=== PATIENT | female | born 1935 | race Caucasian/White ===

== ENCOUNTER 2017-08-19 15:02 | Inpatient (IN) | payer OTHER ==
[2017-08-19] MEDS ORDERED: PIPERACILLIN/TAZOB 3.375 GM 3.375 GM in DEXTROSE 5%-WATER - 50 ML IVPB ONE (15:23)
[2017-08-19] MEDS ORDERED: VANCOMYCIN 1,000 MG in DEXTROSE 5%-WATER - 250 ML IVPB ONE (15:24)
--- NOTE | 2017-08-19 15:32 | PDOC ---
Attending Attestation - Resident Resident Name: Drew Farias - ED Attending Attestation I have performed the following: I have examined & evaluated the patient, The case was reviewed & discussed with the resident, I agree w/resident's findings & plan - HPI HPI: 08/19/17 15:27 81-year-old female with history of atrial fibrillation on aspirin, chronic left lower extremity wound managed by Dr. Dueñas of plastic surgery now with increased swelling and pain and purulence despite outpatient antibiotics, sent from Dr. Juárez's office for admission for IV abx and r/o DVT. 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 no f/c. - Physicial Exam PE: 08/19/17 15:30 afebrile LLE larger than Right. 3cm eschar wound to plummer without surrounding erythema, + tender. no crepitus. NVI distally - Medical Decision Making 08/19/17 15:30 Patient seen and evaluated with the resident. I agree with the overall evaluation, assessment, and management with the following summary of visit: 81-year-old female sent for further evaluation of nonhealing left plummer wound with increased swelling and purulence, rule out superimposed DVT versus deep tissue infection/osteomyelitis. Labs including ESR and CRP, cultures Left lower leg x-ray, left leg Doppler IV antibiotics Admission to Dr. Moore, maegan Juárez Heart Score/ECG Review #1 ECG reviewed & interpreted by me at: 15:27 08/19/17 15:31 afib at 66, poor baseline but no acute ischemic changes
--- NOTE | 2017-08-19 17:10 | PDOC ---
History of Present Illness - General Stated Complaint: LEG PAIN Time Seen by Provider: 08/19/17 15:08 History Source: Patient - History of Present Illness Initial Comments: 08/19/17 17:03 Patient is an 81F with history of dementia, CHF, hypothyroidism, asthma and an unknown psych diagnosis here today complaining of a wound to her left leg. Her aide reports the wound worsening and smelling foul despite taking PO cefdinir. Patient was referred for admission by Dr Moore. Patient denies fevers, chills, nausea, vomiting. On review of symptoms she complains of abdominal pain. Her aide reports that she has had chronic abdominal pain. Patient denies chest pain and shortness of breath. Past History - Past Medical History Allergies/Adverse Reactions: Allergies Allergy/AdvReac Type Severity Reaction Status Date / Time No Known Drug Allergies Allergy Verified 12/08/14 12:46 Home Medications: Ambulatory Orders Acetaminophen [Tylenol Extra Strength] 500 mg PO Q4HWA PRN 03/08/16 Aspirin [Aspirin EC] 81 mg PO DAILY 03/08/16 Dexlansoprazole [Dexilant] 60 mg PO DAILY 03/08/16 Febuxostat [Uloric -] 40 mg PO DAILY 03/08/16 Ferrous Sulfate [Feosol] 325 mg PO DAILY 03/08/16 Levofloxacin [Levaquin] 500 mg PO DAILY #6 tablet 03/08/16 Levothyroxine [Synthroid -] 25 mcg PO DAILY 03/08/16 Lisinopril [Prinivil] 20 mg PO DAILY 03/08/16 Metoclopramide HCl 5 mg PO ASDIR 03/08/16 Metoprolol Tartrate [Lopressor] 100 mg PO BID 03/08/16 Multivitamins [Tab-A-Vit -] 1 tab PO DAILY 03/08/16 Rifaximin [Xifaxan] 550 mg PO BID 03/08/16 Sertraline HCl [Zoloft -] 50 mg PO DAILY 03/08/16 Cephalexin [Keflex] 500 mg PO Q6H #20 capsule 03/12/16 Anemia: Yes (mild iron def) Asthma: No Cardiac Disorders: Yes (AFIB) CVA: No COPD: Yes CHF: Yes DVT: (sent today 06/23/14 to r/o lle dvt) Dementia: Yes Diabetes: No GI Disorders: No Disorders: Yes (FREQUENT UTI'S) HTN: Yes Hypercholesterolemia: No Liver Disease: No Psychiatric Problems: Yes (ANXIETY.) Seizures: No Thyroid Disease: Yes (HYPOTHYROIDISM) - Surgical History Abdominal Surgery: Yes Appendectomy: Yes Orthopedic Surgery: Yes (HIP REPLACEMENT, Left) - Immunization History Immunization Up to Date: Yes (allergic to flu shot) - Suicide/Smoking/Psychosocial Hx Smoking Status: No Smoking History: Never smoked Have you smoked in the past 12 months: No Number of Cigarettes Smoked Daily: 0 Hx Alcohol Use: No Drug/Substance Use Hx: No Substance Use Type: None Hx Substance Use Treatment: No Review of Systems - Review of Systems Comments:: 08/19/17 17:10 GENERAL/CONSTITUTIONAL: No fever or chills. No weakness. HEAD, EYES, EARS, NOSE AND THROAT: No change in vision. No sore throat. CARDIOVASCULAR: No chest pain or shortness of breath RESPIRATORY: No cough, wheezing, or hemoptysis. GASTROINTESTINAL: No nausea, vomiting, diarrhea or constipation. GENITOURINARY: Positive for dysuria and frequency. MUSCULOSKELETAL: Positive for pain in left leg. No neck or back pain. SKIN: No rash NEUROLOGIC: No headache, vertigo, loss of consciousness, or change in strength/ sensation. ENDOCRINE: No increased thirst. No abnormal weight change HEMATOLOGIC/LYMPHATIC: No anemia, easy bleeding, or history of blood clots. ALLERGIC/IMMUNOLOGIC: No hives or skin allergy. *Physical Exam - Vital Signs Last Vital Signs Temp Pulse Resp BP Pulse Ox 98.6 F 64 18 122/82 98 08/19/17 15:30 08/19/17 15:30 08/19/17 15:30 08/19/17 15:30 08/19/17 15:30 - Physical Exam Comments: 08/19/17 17:12 GENERAL: Awake, alert, in no acute distress L LEG: Larger than right, swollen, 3x1cm area of inflammation with pus drainage , tender. 1+ dp pulse HEAD: No signs of trauma, normocephalic, atraumatic EYES: PERRLA, EOMI, sclera anicteric, conjunctiva clear ENT: Auricles normal inspection, hearing grossly normal, nares patent, oropharynx clear without exudates. Moist mucosa NECK: Normal ROM, supple, no lymphadenopathy, JVD, or masses LUNGS: No distress, speaks full sentences, clear to auscultation bilaterally HEART: Regular rate and rhythm, normal S1 and S2, no murmurs, rubs or gallops, peripheral pulses normal and equal bilaterally. ABDOMEN: Tender, voluntary guarding. No masses NEUROLOGICAL: Cranial nerves II through XII grossly intact. Normal speech, no focal sensorimotor deficits SKIN: Warm, Dry, normal turgor, no rashes or lesions noted. ED Treatment Course - LABORATORY CBC & Chemistry Diagram: 08/19/17 17:35 08/19/17 17:35 - RADIOLOGY Radiology Studies Ordered: Category Date Time Status ABDOMEN & PELVIS CT WITH CONTR [CT] Stat CT Scan 08/19/17 15:21 Ordered Medical Decision Making - Medical Decision Making 08/19/17 17:13 Patient is an 81F with history of IDDM, HTN, CAD s/p CABG here today with wound to leg. DDx includes, but is not limited to: cellulitis, osteo. Abdominal exam shows tenderness, will evaluate with CT abd pelvis, cbc, cmp, ua, dvt us, x-rays , ekg. 08/19/17 18:37 Laboratory Tests 08/19/17 08/19/17 08/19/17 17:35 17:35 18:10 WBC 6.1 D Hgb 12.3 Hct 35.9 Plt Count 185 INR 1.10 Urine Nitrite Negative Ur Leukocyte Esterase Negative CBC normal. INR normal. UA negative. DVT US normal. CXR shows cardiomegaly, no obvious infiltrate. CRP/CMP hemolyzed, re-drawn. 08/19/17 19:[address] Ortega. Pending CT abd/pelvis and x-rays, and admission. *DC/Admit/Observation/Transfer Diagnosis at time of Disposition: Cellulitis - Discharge Dispostion Condition at time of disposition: Stable - Referrals Referrals: Hector Juárez MD [Primary Care Provider] - - Patient Instructions - Post Discharge Activity
[2017-08-19] MEDS ORDERED: VANCOMYCIN 1 GRAM (PRE-DOCKED) 1,000 MG/250 ML BAG IVPB ONE (17:43)
[2017-08-19] MEDS ORDERED: PIPERACILLIN/TAZOB 3.375 GM 3.375 GM/50 ML BAG IVPB ONE (17:44)
[2017-08-19 17:53] LABS: BASO % 1.2 % (0-2.0); EOS % 4.6 % (0-4.5); HEMATOCRIT 35.9 % (32.4-45.2); HEMOGLOBIN 12.3 GM/dL (10.7-15.3); LYMPH % 21.2 % (8-40); MCH 33.7 pg (25.7-33.7); MCHC 34.4 g/dl (32.0-36.0); MONO % 13.3 % (3.8-10.2); NEUT % 59.7 % (42.8-82.8); PLATELET COUNT 185 K/MM3 (134-434); RBC 3.67 M/mm3 (3.60-5.2); RDW 13.8 % (11.6-15.6); WHITE BLOOD COUNT 6.1 K/mm3 (4.0-10.0)
[2017-08-19 18:06] LABS: INR 1.1 (0.82-1.09); PROTHROMBIN TIME (PATIENT) 12.4 SEC (9.7-13.0)
[2017-08-19 18:10] LABS: ACTIVATED PTT 37.4 SECONDS (26.9-34.4)
[2017-08-19 18:21] LABS: URINE APPEARANCE CLEAR; URINE BILIRUBIN NEGATIVE (<2.0 mg/dL); URINE COLOR LTYELLOW; URINE GLUCOSE (UA) NEGATIVE (NEGATIVE); URINE KETONE NEGATIVE (NEGATIVE); URINE LEUK ESTERASE NEGATIVE (NEGATIVE); URINE NITRITE NEGATIVE (NEGATIVE); URINE PROTEIN NEGATIVE (NEGATIVE); URINE UROBILINOGEN NEGATIVE mg/dL (0.2-1.0)
--- NOTE | 2017-08-19 18:42 | PDOC ---
*Physical Exam - Vital Signs Last Vital Signs Temp Pulse Resp BP Pulse Ox 98.6 F 64 18 122/82 98 08/19/17 15:30 08/19/17 15:30 08/19/17 15:30 08/19/17 15:30 08/19/17 15:30 08/19/17 18:40 81 YOF with h/o CHF, asthma, decubitus ulcers, and hypothyroidism who was sent here by Dr. Moore for a leg wound with concern for osteomyelitis and/or deep space infection. Duplex negative, pending XR leg, CT A/P, labs. ED Treatment Course - LABORATORY CBC & Chemistry Diagram: 08/19/17 17:35 08/19/17 18:28 - ADDITIONAL ORDERS Additional order review: Laboratory Results 08/19/17 08/19/17 08/19/17 18:10 17:35 17:35 PT with INR INR PTT (Actin FS) Sodium Cancelled Potassium Cancelled Chloride Cancelled Carbon Dioxide Cancelled Anion Gap Cancelled BUN Cancelled Creatinine Cancelled Creat Clearance w eGFR Cancelled Random Glucose Cancelled Calcium Cancelled Total Bilirubin Cancelled AST Cancelled ALT Cancelled Alkaline Phosphatase Cancelled C-Reactive Protein Cancelled Total Protein Cancelled Albumin Cancelled Urine Color Ltyellow Urine Appearance Clear Urine pH 5.0 Ur Specific [place] 1.009 Urine Protein Negative Urine Glucose (UA) Negative Urine Ketones Negative Urine Blood Negative Urine Nitrite Negative Urine Bilirubin Negative Urine Urobilinogen Negative Ur Leukocyte Esterase Negative 08/19/17 17:35 PT with INR 12.40 INR 1.10 PTT (Actin FS) 37.4 H Sodium Potassium Chloride Carbon Dioxide Anion Gap BUN Creatinine Creat Clearance w eGFR Random Glucose Calcium Total Bilirubin AST ALT Alkaline Phosphatase C-Reactive Protein Total Protein Albumin Urine Color Urine Appearance Urine pH Ur Specific [place] Urine Protein Urine Glucose (UA) Urine Ketones Urine Blood Urine Nitrite Urine Bilirubin Urine Urobilinogen Ur Leukocyte Esterase 08/19/17 17:35 RBC 3.67 MCV 98.0 H MCHC 34.4 RDW 13.8 MPV 10.0 Neutrophils % 59.7 Lymphocytes % 21.2 D Monocytes % 13.3 H Eosinophils % 4.6 H Basophils % 1.2 Medical Decision Making - Medical Decision Making 08/19/17 20:41 Reviewed EKG: A-rib, rate of 67, normal axis, QTc 481 ms, t-wave inversions in anterior leads. Spoke with CT - they will not be able to do IV contrast CT as patient has CARIN. Order changed to dry CT. 08/19/17 22:08 CT shows bilateral pleural effusions, bibasilar atelectatic changes r/o infiltrates. Laboratory Tests 08/19/17 08/19/17 08/19/17 17:35 17:35 17:35 WBC 6.1 D RBC 3.67 Hgb 12.3 Hct 35.9 MCV 98.0 H MCH 33.7 MCHC 34.4 RDW 13.8 Plt Count 185 MPV 10.0 Neutrophils % 59.7 Lymphocytes % 21.2 D Monocytes % 13.3 H Eosinophils % 4.6 H Basophils % 1.2 ESR PT with INR 12.40 INR 1.10 PTT (Actin FS) 37.4 H Sodium Cancelled Potassium Cancelled Chloride Cancelled Carbon Dioxide Cancelled Anion Gap Cancelled BUN Cancelled Creatinine Cancelled Creat Clearance w eGFR Cancelled Random Glucose Cancelled Calcium Cancelled Total Bilirubin Cancelled AST Cancelled ALT Cancelled Alkaline Phosphatase Cancelled C-Reactive Protein Total Protein Cancelled Albumin Cancelled Urine Color Urine Appearance Urine pH Ur Specific [place] Urine Protein Urine Glucose (UA) Urine Ketones Urine Blood Urine Nitrite Urine Bilirubin Urine Urobilinogen Ur Leukocyte Esterase 08/19/17 08/19/17 08/19/17 17:35 17:35 18:10 WBC RBC Hgb Hct MCV MCH MCHC RDW Plt Count MPV Neutrophils % Lymphocytes % Monocytes % Eosinophils % Basophils % ESR 39 H PT with INR INR PTT (Actin FS) Sodium Potassium Chloride Carbon Dioxide Anion Gap BUN Creatinine Creat Clearance w eGFR Random Glucose Calcium Total Bilirubin AST ALT Alkaline Phosphatase C-Reactive Protein Cancelled Total Protein Albumin Urine Color Ltyellow Urine Appearance Clear Urine pH 5.0 Ur Specific [place] 1.009 Urine Protein Negative Urine Glucose (UA) Negative Urine Ketones Negative Urine Blood Negative Urine Nitrite Negative Urine Bilirubin Negative Urine Urobilinogen Negative Ur Leukocyte Esterase Negative 08/19/17 18:28 WBC RBC Hgb Hct MCV MCH MCHC RDW Plt Count MPV Neutrophils % Lymphocytes % Monocytes % Eosinophils % Basophils % ESR PT with INR INR PTT (Actin FS) Sodium 138 Potassium 4.6 Chloride 105 Carbon Dioxide 23 Anion Gap 10 BUN 45 H Creatinine 1.5 H Creat Clearance w eGFR 33.25 Random Glucose 129 H Calcium 8.5 Total Bilirubin 0.5 AST 26 ALT 19 Alkaline Phosphatase 303 H C-Reactive Protein 1.7 H Total Protein 7.2 Albumin 3.5 Urine Color Urine Appearance Urine pH Ur Specific [place] Urine Protein Urine Glucose (UA) Urine Ketones Urine Blood Urine Nitrite Urine Bilirubin Urine Urobilinogen Ur Leukocyte Esterase 08/19/17 23:10 Microblogged [facility] for admission (Dr. Moore's group patient admitted to [facility] after 5 pm). Spoke with Dr. Nguyen; patient to be admitted to Dr. Phillips to Med/Surg Inpatient. Decision to Admit order placed. 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 08/19/17 23:22 *DC/Admit/Observation/Transfer Diagnosis at time of Disposition: CARIN (acute kidney injury) Cellulitis Qualifiers: Site of cellulitis: extremity Site of cellulitis of extremity: lower extremity Laterality: left Qualified Code(s): L03.116 - Cellulitis of left lower limb Decubitus ulcer Qualifiers: Pressure ulcer location: unspecified location Pressure ulcer stage: unspecified pressure ulcer stage Qualified Code(s): L89.90 - Pressure ulcer of unspecified site, unspecified stage Leg ulcer, left Qualifiers: Non-pressure ulcer stage: unspecified non-pressure ulcer stage Qualified Code(s ): L97.929 - Non-pressure chronic ulcer of unspecified part of left lower leg with unspecified severity Abdominal pain Qualifiers: Abdominal location: generalized Qualified Code(s): R10.84 - Generalized abdominal pain - Discharge Dispostion Condition at time of disposition: Guarded Admit: Yes - Referrals Referrals: Hector Juárez MD [Primary Care Provider] - - Patient Instructions - Post Discharge Activity
[2017-08-19 20:20] LABS: ANION GAP 10 (8-16); BLOOD UREA NITROGEN 45 mg/dL (7-18); CALCIUM 8.5 mg/dL (8.5-10.1); CHLORIDE 105 mmol/L (98-107); CO2 23 mmol/L (21-32); CREATININE 1.5 mg/dL (0.55-1.02); GLUCOSE,RANDOM 129 mg/dL (74-106); POTASSIUM 4.6 mmol/L (3.5-5.1); SODIUM 138 mmol/L (136-145)
[2017-08-19 20:21] LABS: ALBUMIN 3.5 g/dl (3.4-5.0); ALK PHOS 303 U/L (45-117); BILIRUBIN,TOTAL 0.5 mg/dL (0.2-1.0); SGOT/AST 26 U/L (15-37); SGPT/ALT 19 U/L (12-78); TOT PROT 7.2 g/dl (6.4-8.2)
[2017-08-19] MEDS ORDERED: ACETAMINOPHEN 325 MG TABLET (FP) PO PRN (23:19)
[2017-08-19] MEDS ORDERED: DOCUSATE SODIUM 100 MG CAPSULE (FP) PO PRN ×2 (23:19→23:38)
[2017-08-19] MEDS ORDERED: ALBUTEROL SO4 0.083% IH SOL 2.5 MG/3 ML VIAL.NEB. NEB PRN (23:19)
--- NOTE | 2017-08-19 23:22 | PN ---
Teaching Attending Note Name of Resident: Lico Parham ATTENDING PHYSICIAN STATEMENT I saw and evaluated the patient. I reviewed the resident's note and discussed the case with the resident. I agree with the resident's findings and plan as documented. SUBJECTIVE: 81 Fwith hx. of CHF, A-Fib, CHF, Hypothyriod, chronic hyponatremiam Dementia, who presents with increased edema of LLE and purulance, who failed outpt. abx ( possibly on Keflex). She was sent in from Dr. Juárez's office for abx. Pt. is poor historian and unable to give further history. OBJECTIVE: Physical: VS: Vital Signs Period Temp Pulse Resp BP Sys/Castro Pulse Ox Last 24 Hr 98.6 F 64 18 122/82 98 GEN: NAD, Resting in bed, AA0X3 HEENT: NCAT, PERRL, Throat without erythema or exudates CARD: IRR S1, S2 RESP: CTAB ABD: BSx4, NTD to palpation EXT: LLE 2 cm wounds on plummer, with purulant malorderous drainage, Pulses intact, CBCD WBC 6.1 K/mm3 (4.0-10.0) D 08/19/17 17:35 RBC 3.67 M/mm3 (3.60-5.2) 08/19/17 17:35 Hgb 12.3 GM/dL (10.7-15.3) 08/19/17 17:35 Hct 35.9 % (32.4-45.2) 08/19/17 17:35 MCV 98.0 fl (80-96) H 08/19/17 17:35 MCHC 34.4 g/dl (32.0-36.0) 08/19/17 17:35 RDW 13.8 % (11.6-15.6) 08/19/17 17:35 Plt Count 185 K/MM3 (134-434) 08/19/17 17:35 MPV 10.0 fl (7.5-11.1) 08/19/17 17:35 CMP Sodium 138 mmol/L (136-145) 08/19/17 18:28 Potassium 4.6 mmol/L (3.5-5.1) 08/19/17 18:28 Chloride 105 mmol/L (98-107) 08/19/17 18:28 Carbon Dioxide 23 mmol/L (21-32) 08/19/17 18:28 Anion Gap 10 (8-16) 08/19/17 18:28 BUN 45 mg/dL (7-18) H 08/19/17 18:28 Creatinine 1.5 mg/dL (0.55-1.02) H 08/19/17 18:28 Creat Clearance w eGFR 33.25 (>60) 08/19/17 18:28 Random Glucose 129 mg/dL (74-106) H 08/19/17 18:28 Calcium 8.5 mg/dL (8.5-10.1) 08/19/17 18:28 Total Bilirubin 0.5 mg/dL (0.2-1.0) 08/19/17 18:28 AST 26 U/L (15-37) 08/19/17 18:28 ALT 19 U/L (12-78) 08/19/17 18:28 Alkaline Phosphatase 303 U/L (45-117) H 08/19/17 18:28 Total Protein 7.2 g/dl (6.4-8.2) 08/19/17 18:28 Albumin 3.5 g/dl (3.4-5.0) 08/19/17 18:28 CT ABD/PELVIS: Small bilateral plueral effusion?Atelectesis, mild-mod cardiomegaly Home Medications Medication Instructions Recorded Acetaminophen [Tylenol Extra 500 mg PO Q4HWA PRN 03/08/16 Strength] Aspirin [Aspirin EC] 81 mg PO DAILY 03/08/16 Dexlansoprazole [Dexilant] 60 mg PO DAILY 03/08/16 Febuxostat [Uloric -] 40 mg PO DAILY 03/08/16 Ferrous Sulfate [Feosol] 325 mg PO DAILY 03/08/16 Levofloxacin [Levaquin] 500 mg PO DAILY #6 tablet 03/08/16 Levothyroxine [Synthroid -] 25 mcg PO DAILY 03/08/16 Lisinopril [Prinivil] 20 mg PO DAILY 03/08/16 Metoclopramide HCl 5 mg PO ASDIR 03/08/16 Metoprolol Tartrate [Lopressor] 100 mg PO BID 03/08/16 Multivitamins [Tab-A-Vit -] 1 tab PO DAILY 03/08/16 Rifaximin [Xifaxan] 550 mg PO BID 03/08/16 Sertraline HCl [Zoloft -] 50 mg PO DAILY 03/08/16 Cephalexin [Keflex] 500 mg PO Q6H #20 capsule 03/12/16 ASSESSMENT AND PLAN: 81 Fwith hx. of CHF, A-Fib, CHF, Hypothyriod, chronic hyponatremia Dementia, who presents with increased edema of LLE and purulance, being admitted for cellulitis 1.) Cellulitis LLE - XRAY, noted -Vanco/Zosyn - ID Consult - CX - Check ESR 2.) Hypothyriod - C/W Synthriod 3.) CARIN - U lytes - Gentle IVF - Avoid Nephrotoxin - Renally dose 4.) A-Fib - Rate controlled - C/W ASA ( Unknown why pt. is not on A/C) 5.) DVT Ppx - Heparin [address] in Med-Sx
[2017-08-19] MEDS ORDERED: SODIUM CHLORIDE 1,000 ML IV SCH (23:30)
--- NOTE | 2017-08-19 23:42 | HP ---
CHIEF COMPLAINT: L leg pain HISTORY OF PRESENT ILLNESS: 81 year old female with a history of dementia, CHF, hypothyroidism, afib, asthma presents to the hospital complaining of pain in her left leg and the inability to walk for 3 days. Patient is a very poor historian and a reliable history is unable to be taken without anyone present at bedside. As per ED note , patient was brought to ED by Dr. Moore's request for wound on her left leg that was worsening and failed outpatient treatment with cefdinir. Patient complains of vague, mild abdominal pain in the left lower and right lower quadrants. Denies fevers, chills, chest pain, SOB, nausea, vomiting, diarrhea. ER course was notable for: (1) WBC 6.1 (2) afebrile (3) No DVT PAST MEDICAL HISTORY: dementia, CHF, hypothyroidism, afib, asthma PAST SURGICAL HISTORY: unknown Social History: Smoking: none Alcohol: none Drugs: none Family History: unknown Allergies No Known Drug Allergies Allergy (Verified 12/08/14 12:46) HOME MEDICATIONS: Home Medications Medication Instructions Recorded Acetaminophen [Tylenol Extra 500 mg PO Q4HWA PRN 03/08/16 Strength] Aspirin [Aspirin EC] 81 mg PO DAILY 03/08/16 Dexlansoprazole [Dexilant] 60 mg PO DAILY 03/08/16 Febuxostat [Uloric -] 40 mg PO DAILY 03/08/16 Ferrous Sulfate [Feosol] 325 mg PO DAILY 03/08/16 Levofloxacin [Levaquin] 500 mg PO DAILY #6 tablet 03/08/16 Levothyroxine [Synthroid -] 25 mcg PO DAILY 03/08/16 Lisinopril [Prinivil] 20 mg PO DAILY 03/08/16 Metoclopramide HCl 5 mg PO ASDIR 03/08/16 Metoprolol Tartrate [Lopressor] 100 mg PO BID 03/08/16 Multivitamins [Tab-A-Vit -] 1 tab PO DAILY 03/08/16 Rifaximin [Xifaxan] 550 mg PO BID 03/08/16 Sertraline HCl [Zoloft -] 50 mg PO DAILY 03/08/16 Cephalexin [Keflex] 500 mg PO Q6H #20 capsule 03/12/16 REVIEW OF SYSTEMS CONSTITUTIONAL: Absent: fever, chills, diaphoresis, generalized weakness, malaise, loss of appetite, weight change HEENT: Absent: rhinorrhea, nasal congestion, throat pain, throat swelling, difficulty swallowing, mouth swelling, ear pain, eye pain, visual changes CARDIOVASCULAR: Absent: chest pain, syncope, palpitations, irregular heart rate, lightheadedness , peripheral edema RESPIRATORY: Absent: cough, shortness of breath, dyspnea with exertion, orthopnea, wheezing, stridor, hemoptysis GASTROINTESTINAL: Absent: abdominal pain, abdominal distension, nausea, vomiting, diarrhea, constipation, melena, hematochezia GENITOURINARY: Absent: dysuria, frequency, urgency, hesitancy, hematuria, flank pain, genital pain MUSCULOSKELETAL: Absent: myalgia, arthralgia, joint swelling, back pain, neck pain SKIN: Absent: rash, itching, pallor HEMATOLOGIC/IMMUNOLOGIC: Absent: easy bleeding, easy bruising, lymphadenopathy, frequent infections ENDOCRINE: Absent: unexplained weight gain, unexplained weight loss, heat intolerance, cold intolerance NEUROLOGIC: Absent: headache, focal weakness or paresthesias, dizziness, unsteady gait, seizure, mental status changes, bladder or bowel incontinence PSYCHIATRIC: Absent: anxiety, depression, suicidal or homicidal ideation, hallucinations. PHYSICAL EXAMINATION Vital Signs - 24 hr 08/19/17 15:30 Temperature 98.6 F Pulse Rate 64 Respiratory 18 Rate Blood Pressure 122/82 O2 Sat by Pulse 98 Oximetry (%) GENERAL: A&Ox3, no acute distress EYES: PERRLA, EOMI ENT: Moist mucus membranes NECK: No JVD LUNGS: CTA, no wheezes HEART: Irregularly irregular rate, no murmurs noted on exam ABDOMEN: Soft, nontender, BS present MUSCULOSKELETAL: No CVA Tenderness EXTREMITIES: 2+ pulses, 1.5cm ulcer with overlying scar tissue noted on medial side of L leg with surrounding erythema NEUROLOGICAL: Cranial nerves II-XII intact. Laboratory Results - last 24 hr 08/19/17 08/19/17 08/19/17 17:35 17:35 17:35 WBC 6.1 D RBC 3.67 Hgb 12.3 Hct 35.9 MCV 98.0 H MCH 33.7 MCHC 34.4 RDW 13.8 Plt Count 185 MPV 10.0 Neutrophils % 59.7 Lymphocytes % 21.2 D Monocytes % 13.3 H Eosinophils % 4.6 H Basophils % 1.2 ESR PT with INR 12.40 INR 1.10 PTT (Actin FS) 37.4 H Sodium Cancelled Potassium Cancelled Chloride Cancelled Carbon Dioxide Cancelled Anion Gap Cancelled BUN Cancelled Creatinine Cancelled Creat Clearance w eGFR Cancelled Random Glucose Cancelled Calcium Cancelled Total Bilirubin Cancelled AST Cancelled ALT Cancelled Alkaline Phosphatase Cancelled C-Reactive Protein Total Protein Cancelled Albumin Cancelled Urine Color Urine Appearance Urine pH Ur Specific [place] Urine Protein Urine Glucose (UA) Urine Ketones Urine Blood Urine Nitrite Urine Bilirubin Urine Urobilinogen Ur Leukocyte Esterase 08/19/17 08/19/17 08/19/17 17:35 17:35 18:10 WBC RBC Hgb Hct MCV MCH MCHC RDW Plt Count MPV Neutrophils % Lymphocytes % Monocytes % Eosinophils % Basophils % ESR 39 H PT with INR INR PTT (Actin FS) Sodium Potassium Chloride Carbon Dioxide Anion Gap BUN Creatinine Creat Clearance w eGFR Random Glucose Calcium Total Bilirubin AST ALT Alkaline Phosphatase C-Reactive Protein Cancelled Total Protein Albumin Urine Color Ltyellow Urine Appearance Clear Urine pH 5.0 Ur Specific [place] 1.009 Urine Protein Negative Urine Glucose (UA) Negative Urine Ketones Negative Urine Blood Negative Urine Nitrite Negative Urine Bilirubin Negative Urine Urobilinogen Negative Ur Leukocyte Esterase Negative 08/19/17 18:28 WBC RBC Hgb Hct MCV MCH MCHC RDW Plt Count MPV Neutrophils % Lymphocytes % Monocytes % Eosinophils % Basophils % ESR PT with INR INR PTT (Actin FS) Sodium 138 Potassium 4.6 Chloride 105 Carbon Dioxide 23 Anion Gap 10 BUN 45 H Creatinine 1.5 H Creat Clearance w eGFR 33.25 Random Glucose 129 H Calcium 8.5 Total Bilirubin 0.5 AST 26 ALT 19 Alkaline Phosphatase 303 H C-Reactive Protein 1.7 H Total Protein 7.2 Albumin 3.5 Urine Color Urine Appearance Urine pH Ur Specific [place] Urine Protein Urine Glucose (UA) Urine Ketones Urine Blood Urine Nitrite Urine Bilirubin Urine Urobilinogen Ur Leukocyte Esterase ASSESSMENT/PLAN: 81 year old female with a history of dementia, CHF, hypothyroidism, afib, asthma , referred by Dr. Moore for treatment of L leg wound and surrounding cellulitis #Left Leg Cellulitis: -f/u wound culture -vancomycin 1g q24h -zosyn 2.25 q6h -ID consult Dr. Mc appreciated -IVF -LLE doppler negative #Acute Kidney Injury: likely prerenal in etiology -urine lytes -urine creatinine -IVF #Atrial Fibrillation: rate controlled, not anticoagulated -patient needs medical reconciliation -not on current anticoagulation, need to determine why not -EKG - Afib with ST/T wave abnormality #Hypothyroidism -continue synthroid -medrec needed #FEN -IVF NS @ 83cc/hr #Prophylaxis -Heparin 5000 subQ TID #Disposition -admit to med surg Visit type - Emergency Visit Emergency Visit: Yes ED Registration Date: 08/19/17 Care time: The patient presented to the Emergency Department on the above date and was hospitalized for further evaluation of their emergent condition. - New Patient This patient is new to me today: Yes Date on this admission: 08/20/17 - Critical Care Critical Care patient: No Hospitalist Screening - Colonoscopy Questionnaire Colonoscopy Questionnaire: Colonoscopy Questionnaire - Patient: 50 - 75 years old and never had a screening colonoscopy: Unknown History of colon or rectal polyps, or CA: Unknown History of IBD, Crohn's disease or UC: Unknown History of abdominal radiation therapy as a child: Unknown - Relative: 1 with colon or rectal CA, or polyps at age 60 or younger: Unknown Colon or rectal CA diagnosed at age 45 or younger: Unknown Multiple relatives with colon or rectal CA: Unknown - Outcome: Screening Result: Negative Screen
[2017-08-20] MEDS: PIPERACILLIN/TAZOB 2.25 GM 2.25 GM in DEXTROSE 5%-WATER - 50 ML IVPB SCH ×4 (01:16→21:41)
[2017-08-20] MEDS ORDERED: ONDANSETRON 4 MG/2 ML VIAL ONE (02:18)
[2017-08-20 06:07] LABS: BASO % 1.3 % (0-2.0); EOS % 4.7 % (0-4.5); LYMPH % 20.1 % (8-40); MCH 32.9 pg (25.7-33.7); MCHC 34.2 g/dl (32.0-36.0); MEAN CELL VOLUME 96.1 fl (80-96); MEAN PLT VOLUME 9.4 fl (7.5-11.1); MONO % 10.6 % (3.8-10.2); NEUT % 63.3 % (42.8-82.8); PLATELET COUNT 186 K/MM3 (134-434); RBC 3.65 M/mm3 (3.60-5.2); RDW 13.2 % (11.6-15.6); WHITE BLOOD COUNT 7.3 K/mm3 (4.0-10.0)
[2017-08-20 06:31] LABS: ALBUMIN 3.4 g/dl (3.4-5.0); ANION GAP 7 (8-16); BILIRUBIN,TOTAL 0.7 mg/dL (0.2-1.0); BLOOD UREA NITROGEN 41 mg/dL (7-18); CALCIUM 8.7 mg/dL (8.5-10.1); CHLORIDE 108 mmol/L (98-107); CO2 25 mmol/L (21-32); CREATININE 1.6 mg/dL (0.55-1.02); GLUCOSE,RANDOM 99 mg/dL (74-106); MAGNESIUM 1.9 mg/dL (1.8-2.4); PHOSPHOROUS 4.4 mg/dL (2.5-4.9); POTASSIUM 4.2 mmol/L (3.5-5.1); SGOT/AST 23 U/L (15-37); SGPT/ALT 16 U/L (12-78); SODIUM 140 mmol/L (136-145)
[2017-08-20 06:32] LABS: ALK PHOS 281 U/L (45-117); TOT PROT 7.1 g/dl (6.4-8.2)
[2017-08-20] MEDS: HEPARIN NA (PORCINE) 5,000 UNITS/ML 1ML VIAL SQ SCH ×3 (08:36→21:41)
[2017-08-20] MEDS ORDERED: PIPERACILLIN/TAZOBACTAM 2.25 GM VIAL IVPB ONE ×3 (08:47→21:21)
[2017-08-20] MEDS ORDERED: PT OWN MED DRAWER 7, Y5N ONE (08:47)
[2017-08-20] MEDS ORDERED: DEXTROSE 5%-WATER - 50 ML IVPB ONE ×3 (08:48→21:21)
[2017-08-20] MEDS: LEVOTHYROXINE NA 25 MCG TABLET (FP) PO SCH (08:52)
[2017-08-20] MEDS: PANTOPRAZOLE 40 MG TABLET (FP) PO SCH (09:00)
[2017-08-20] MEDS: FERROUS SO4 325 MG TABLET (FP) PO SCH (09:00)
[2017-08-20] MEDS: METOPROLOL TARTRATE 50 MG TABLET (FP) PO SCH ×2 (09:01→21:41)
[2017-08-20] MEDS: MULTIVITAMINS (DAILY MVI) TABLET (FP) PO SCH (09:01)
[2017-08-20] MEDS: SERTRALINE HCL 50 MG TABLET (FP) PO SCH (09:01)
[2017-08-20] MEDS: ASPIRIN COATED 81 MG TABLET.EC PO SCH (09:01)
[2017-08-20] MEDS ORDERED: LISINOPRIL 20 MG TABLET (FP) PO SCH (10:00)
--- NOTE | 2017-08-20 10:06 | EKG ---
Test Reason : Blood Pressure : / mmHG Vent. Rate : 067 BPM Atrial Rate : 241 BPM P-R Int : 000 ms QRS Dur : 090 ms QT Int : 456 ms P-R-T Axes : 000 036 155 degrees QTc Int : 481 ms Poor data quality precludes assesment. Likely atrial fibrillation Confirmed by MD Christa, Isac ([id number]) on 08/20/2017 10:06:02 AM Referred By: Confirmed By:Isac Goodwin MD
[2017-08-20] MEDS: RIFAXIMIN 550 MG TABLET (UD) PO SCH ×2 (13:08→21:41)
[2017-08-20] MEDS: FEBUXOSTAT 40 MG TAB PO SCH (13:09)
--- NOTE | 2017-08-20 13:20 | PN ---
Progress Note (short form) - Note Progress Note: ID consult dictated imp/reccd 81 year old female admitted with a nonhealing ulcer left leg- she has been on cefdinar for about two weeks as an outpt leg is getting worse, more painful, she feels weak no scratches- no pets lives with at home no fevers duplex negative xray no fracture celluliits- infected ulcer pam agree with vanco/zosyn f/u wound culture watch vanco dosing with elevated creatinine-follow random levels until renal function stabilizes Problem List - Problems (1) Cellulitis Code(s): L03.90 - CELLULITIS, UNSPECIFIED Qualifiers: Site of cellulitis: extremity Site of cellulitis of extremity: lower extremity Laterality: left Qualified Code(s): L03.116 - Cellulitis of left lower limb (2) Infected ulcer of skin Code(s): L98.499 - NON-PRESSURE CHRONIC ULCER OF SKIN OF SITES W UNSP SEVERITY; L08.9 - LOCAL INFECTION OF THE SKIN AND SUBCUTANEOUS TISSUE, UNSP (3) Acute kidney injury Code(s): N17.9 - ACUTE KIDNEY FAILURE, UNSPECIFIED
--- NOTE | 2017-08-20 13:41 | PN ---
Progress Note, Physician Chief Complaint: patient seen and examined admitted for left leg cellulitis and wound failed po abx admitted for iv abx - Current Medication List Current Medications: Active Medications Acetaminophen (Tylenol -) 650 mg PO Q4H PRN PRN Reason: PAIN Albuterol Sulfate (Ventolin 0.083% Nebulizer Soln -) 1 amp NEB Q6H PRN PRN Reason: SHORT OF BREATH/WHEEZING Aspirin (Ecotrin -) 81 mg PO DAILY [facility] Last Admin: 08/20/17 09:01 Dose: 81 mg Docusate Sodium (Colace -) 100 mg PO TID PRN PRN Reason: CONSTIPATION Febuxostat (Uloric -) 40 mg PO DAILY [facility] Last Admin: 08/20/17 13:09 Dose: 40 mg Ferrous Sulfate (Feosol -) 325 mg PO DAILY [facility] Last Admin: 08/20/17 09:00 Dose: 325 mg Heparin Sodium (Porcine) (Heparin -) 5,000 unit SQ TID [facility] Last Admin: 08/20/17 08:36 Dose: Not Given Piperacillin Sod/Tazobactam (Sod 2.25 gm/ Dextrose) 50 mls @ 100 mls/hr IVPB Q6H-IV [facility] PRN Reason: Protocol Levothyroxine Sodium (Synthroid -) 25 mcg PO DAILY@0700 [facility] Last Admin: 08/20/17 08:52 Dose: 25 mcg Lisinopril (Prinivil) 20 mg PO DAILY [facility] Last Admin: 08/20/17 09:01 Dose: 20 mg Metoprolol Tartrate (Lopressor -) 100 mg PO BID [facility] Last Admin: 08/20/17 09:01 Dose: 100 mg Multivitamins/Minerals/Vitamin C (Tab-A-Vit -) 1 tab PO DAILY [facility] Last Admin: 08/20/17 09:01 Dose: 1 tab Pantoprazole Sodium (Protonix -) 40 mg PO DAILY [facility] Last Admin: 08/20/17 09:00 Dose: 40 mg Rifaximin (Xifaxan -) 550 mg PO BID [facility] Last Admin: 08/20/17 13:08 Dose: 550 mg Sertraline HCl (Zoloft -) 50 mg PO DAILY [facility] Last Admin: 08/20/17 09:01 Dose: 50 mg - Objective Vital Signs: Vital Signs Temperature 98 F 08/20/17 12:23 Pulse Rate 96 H 08/20/17 12:23 Respiratory Rate 20 08/20/17 12:23 Blood Pressure 125/85 08/20/17 12:23 O2 Sat by Pulse Oximetry (%) 99 08/20/17 06:18 Constitutional: Yes: Calm Neck: Yes: Trachea Midline Cardiovascular: Yes: Regular Rate and Rhythm, S1, S2 Respiratory: Yes: CTA Bilaterally Gastrointestinal: Yes: Normal Bowel Sounds, Soft Extremities: Yes: Other (left foot swollen left leg wound yellowish discharge open) Edema: Yes Neurological: Yes: Alert, Oriented Labs: CBC, BMP 08/20/17 05:50 08/20/17 05:50 INR, PTT INR 1.10 (0.82-1.09) 08/19/17 17:35 Problem List - Problems (1) Cellulitis Assessment/Plan: ID on board iv zosyn doppler negative for dvt no fracture vascular consult elevated ESR Code(s): L03.90 - CELLULITIS, UNSPECIFIED Qualifiers: Site of cellulitis: extremity Site of cellulitis of extremity: lower extremity Laterality: left Qualified Code(s): L03.116 - Cellulitis of left lower limb (2) Leg ulcer, left Assessment/Plan: wound culture sent vascular eval ID on board' isolation Code(s): L97.929 - NON-PRS CHRONIC ULC UNSP PRT OF L LOW LEG W UNSP SEVERITY Qualifiers: Non-pressure ulcer stage: unspecified non-pressure ulcer stage Qualified Code(s): L97.929 - Non-pressure chronic ulcer of unspecified part of left lower leg with unspecified severity (3) Alkaline phosphatase elevation Assessment/Plan: CT scan noted nodular liver possible cirrhosis on rifaximin Code(s): R74.8 - ABNORMAL LEVELS OF OTHER SERUM ENZYMES (4) Atrial fibrillation Assessment/Plan: metoprolol and aspirin Code(s): I48.91 - UNSPECIFIED ATRIAL FIBRILLATION (5) Hypothyroidism Assessment/Plan: synthroid tsh check Code(s): E03.9 - HYPOTHYROIDISM, UNSPECIFIED (6) CKD (chronic kidney disease) Assessment/Plan: renal eval will monitor bun/cr Code(s): N18.9 - CHRONIC KIDNEY DISEASE, UNSPECIFIED
--- NOTE | 2017-08-20 14:41 | CONS ---
INFECTIOUS DISEASE CONSULTATION DATE OF CONSULTATION: 08/20/2017 REQUESTING PHYSICIAN: Kaela Moore MD This is an 81-year-old woman. She lives at home. She presented to the emergency room with increasing pain of her left leg which was causing her to have difficulty walking. Patient suffers from dementia and is a poor historian. History is both from the patient and from the chart. The patient was brought to the ER because the wound on her leg was getting worse. She reports she was having more redness. She has apparently been on Cefdinir which she states she has been taking for 2 weeks. She denies fevers, chills, nausea, vomiting, dysuria, or diarrhea. In the emergency room, she had a duplex of her leg done as the left leg was more swollen than the right; it was negative for DVT. Her white count was normal, and she had no fever. PAST MEDICAL HISTORY: Notable for dementia, heart failure, hypothyroidism, atrial fibrillation, and asthma. SURGICAL HISTORY: She has had bilateral hip repair. SOCIAL HISTORY: She reports she lives at home with her . There is no history of any cigarette, alcohol, or drug use. FAMILY HISTORY: Not known. Per the ER note, she is followed by Dr. Dueñas for the leg. REVIEW OF SYSTEMS: She has no complaints. PHYSICAL EXAMINATION: General: She is awake and alert. Vital Signs: She has been afebrile. Temperature is 98. Pulse is 96, blood pressure 125/85. Respiratory rate is 20. HEENT: She is normocephalic. Her eyes are anicteric. Neck: Supple. Lungs: Clear to auscultation. Heart: Regular rate and rhythm. Abdomen: Soft, nontender. Extremities: The left leg is more swollen than the right. She has a superficial skin ulcer on the anterior tibial of the left leg that has some purulence. There is some surrounding erythema. LABORATORY DATA: Labs are notable for a white count this morning of 7.3, hemoglobin 12, platelets are 186 with a sedimentation rate of 39. BUN is 41 and creatinine 1.6. Alkaline phosphatase of 281. CRP of 1.7. Urinalysis is negative. Her imaging is notable for mild cardiomegaly. The leg x-ray shows soft tissue swelling of the distal left leg. There is no fracture, and the duplex is negative for DVT. In summary, this is an 81-year-old woman with cellulitis and an infected ulcer and acute kidney injury. Would agree with vancomycin and Zosyn as she has been on Cefdinir as an outpatient. Follow up her wound culture. Would follow her with random vancomycin levels at this time given her change in renal function. Further recommendations to follow. AYSE BUCHANAN M.D. [id number]
--- NOTE | 2017-08-20 15:36 | CONSULT ---
Consult - text type - Consultation Consultation Note: Renal Consult for CARIN This is a 81 year old woman with PMhx of Hypertension (10 years), Hypothyrodism , Asthma who presented with LE cellulitis that was refractroy to outpatient Abx and found to have BUN/Cr of 41/1.6. Pt denies any history of CKD. Prior records show a Cr of 1.3 in 2016 but renal function was normal prior to that. Denies any history of kidney stones, NSAID use or contrast exposure. No flank pain. + Recent Abx use. No N/V/D. Reports good oral intake. Denies any SOB, chest pain, abd pain. PMhx: as above Allergies: NKDA Family Hx: NC Social Hx: no T/A/D ROS: as per HPI Home Medications Medication Instructions Recorded Acetaminophen [Tylenol Extra 500 mg PO Q4HWA PRN 03/08/16 Strength] Aspirin [Aspirin EC] 81 mg PO DAILY 03/08/16 Dexlansoprazole [Dexilant] 60 mg PO DAILY 03/08/16 Febuxostat [Uloric -] 40 mg PO DAILY 03/08/16 Ferrous Sulfate [Feosol] 325 mg PO DAILY 03/08/16 Levofloxacin [Levaquin] 500 mg PO DAILY #6 tablet 03/08/16 Levothyroxine [Synthroid -] 25 mcg PO DAILY 03/08/16 Lisinopril [Prinivil] 20 mg PO DAILY 03/08/16 Metoclopramide HCl 5 mg PO ASDIR 03/08/16 Metoprolol Tartrate [Lopressor] 100 mg PO BID 03/08/16 Multivitamins [Tab-A-Vit -] 1 tab PO DAILY 03/08/16 Rifaximin [Xifaxan] 550 mg PO BID 03/08/16 Sertraline HCl [Zoloft -] 50 mg PO DAILY 03/08/16 Cephalexin [Keflex] 500 mg PO Q6H #20 capsule 03/12/16 Vital Signs Temperature 97.9 F 08/20/17 14:15 Pulse Rate 91 H 08/20/17 14:15 Respiratory Rate 20 08/20/17 14:15 Blood Pressure 126/71 08/20/17 14:15 O2 Sat by Pulse Oximetry (%) 99 08/20/17 06:18 Intake & Output 0508/18/17 08/19/17 08/20/17 23:59 23:59 23:59 23:59 Intake Total 500 Balance 500 Weight 64 kg 71.985 kg NAD awake and alert MMM, No JVD RRR, No M/R CTA, no wheeze or rales soft NT/ND No LE edema, no cyanosis or clubbing + erythema L> R CBC, BMP 08/20/17 05:50 08/20/17 05:50 Current Medications Acetaminophen (Tylenol -) 650 mg PO Q4H PRN PRN Reason: PAIN Albuterol Sulfate (Ventolin 0.083% Nebulizer Soln -) 1 amp NEB Q6H PRN PRN Reason: SHORT OF BREATH/WHEEZING Aspirin (Ecotrin -) 81 mg PO DAILY [facility] Last Admin: 08/20/17 09:01 Dose: 81 mg Docusate Sodium (Colace -) 100 mg PO TID PRN PRN Reason: CONSTIPATION Febuxostat (Uloric -) 40 mg PO DAILY [facility] Last Admin: 08/20/17 13:09 Dose: 40 mg Ferrous Sulfate (Feosol -) 325 mg PO DAILY [facility] Last Admin: 08/20/17 09:00 Dose: 325 mg Heparin Sodium (Porcine) (Heparin -) 5,000 unit SQ TID [facility] Last Admin: 08/20/17 15:22 Dose: 5,000 unit Piperacillin Sod/Tazobactam (Sod 2.25 gm/ Dextrose) 50 mls @ 100 mls/hr IVPB Q6H-IV [facility] PRN Reason: Protocol Last Admin: 08/20/17 15:19 Dose: 100 mls/hr Levothyroxine Sodium (Synthroid -) 25 mcg PO DAILY@0700 [facility] Last Admin: 08/20/17 08:52 Dose: 25 mcg Metoprolol Tartrate (Lopressor -) 100 mg PO BID [facility] Last Admin: 08/20/17 09:01 Dose: 100 mg Multivitamins/Minerals/Vitamin C (Tab-A-Vit -) 1 tab PO DAILY [facility] Last Admin: 08/20/17 09:01 Dose: 1 tab Pantoprazole Sodium (Protonix -) 40 mg PO DAILY [facility] Last Admin: 08/20/17 09:00 Dose: 40 mg Rifaximin (Xifaxan -) 550 mg PO BID [facility] Last Admin: 08/20/17 13:08 Dose: 550 mg Sertraline HCl (Zoloft -) 50 mg PO DAILY [facility] Last Admin: 08/20/17 09:01 Dose: 50 mg 81 year old woman with PMhx of Hypertension (10 years), Hypothyrodism, Asthma who presented with LE cellulitis that was refractroy to outpatient Abx and found to have BUN/Cr of 41/1.6. #Acute Renal Injury likely related to intravascular volume depletion in setting of acute infection #LE Cellulitis #Hypertension Check Urine studies for FeNa, UPCR Renal US to access kidney size and texture Trial of IVF x 24 hours continue Abx as per ID Hold Lisinopril for now (received dose this am) Trend BP Thank you Will follow Kev Clark DO
[2017-08-20] MEDS ORDERED: VANCOMYCIN 1,000 MG in DEXTROSE 5%-WATER - 250 ML IVPB SCH (16:00)
[2017-08-20] MEDS: SODIUM CHLORIDE 1,000 ML IV SCH ×2 (16:24→21:42)
[2017-08-21] MEDS ORDERED: DEXTROSE 5%-WATER - 50 ML IVPB ONE ×2 (01:53→10:31)
[2017-08-21] MEDS ORDERED: PIPERACILLIN/TAZOBACTAM 2.25 GM VIAL IVPB ONE ×2 (01:53→10:30)
[2017-08-21] MEDS: PIPERACILLIN/TAZOB 2.25 GM 2.25 GM in DEXTROSE 5%-WATER - 50 ML IVPB SCH ×2 (02:08→10:38)
[2017-08-21] MEDS: HEPARIN NA (PORCINE) 5,000 UNITS/ML 1ML VIAL SQ SCH (06:23)
[2017-08-21] MEDS: LEVOTHYROXINE NA 25 MCG TABLET (FP) PO SCH (06:23)
--- NOTE | 2017-08-21 08:42 | PN ---
Progress Note, Physician - Current Medication List Current Medications: Active Medications Acetaminophen (Tylenol -) 650 mg PO Q4H PRN PRN Reason: PAIN Last Admin: 08/20/17 17:58 Dose: 650 mg Albuterol Sulfate (Ventolin 0.083% Nebulizer Soln -) 1 amp NEB Q6H PRN PRN Reason: SHORT OF BREATH/WHEEZING Aspirin (Ecotrin -) 81 mg PO DAILY [facility] Last Admin: 08/20/17 09:01 Dose: 81 mg Docusate Sodium (Colace -) 100 mg PO TID PRN PRN Reason: CONSTIPATION Febuxostat (Uloric -) 40 mg PO DAILY [facility] Last Admin: 08/20/17 13:09 Dose: 40 mg Ferrous Sulfate (Feosol -) 325 mg PO DAILY [facility] Last Admin: 08/20/17 09:00 Dose: 325 mg Heparin Sodium (Porcine) (Heparin -) 5,000 unit SQ TID [facility] Last Admin: 08/21/17 06:23 Dose: 5,000 unit Piperacillin Sod/Tazobactam (Sod 2.25 gm/ Dextrose) 50 mls @ 100 mls/hr IVPB Q6H-IV [facility] PRN Reason: Protocol Last Admin: 08/21/17 02:08 Dose: 100 mls/hr Sodium Chloride (Normal Saline -) 1,000 mls @ 83 mls/hr IV ASDIR [facility] Last Admin: 08/20/17 21:42 Dose: 83 mls/hr Levothyroxine Sodium (Synthroid -) 25 mcg PO DAILY@0700 [facility] Last Admin: 08/21/17 06:23 Dose: 25 mcg Metoprolol Tartrate (Lopressor -) 100 mg PO BID [facility] Last Admin: 08/20/17 21:41 Dose: 100 mg Multivitamins/Minerals/Vitamin C (Tab-A-Vit -) 1 tab PO DAILY [facility] Last Admin: 08/20/17 09:01 Dose: 1 tab Pantoprazole Sodium (Protonix -) 40 mg PO DAILY [facility] Last Admin: 08/20/17 09:00 Dose: 40 mg Rifaximin (Xifaxan -) 550 mg PO BID [facility] Last Admin: 08/20/17 21:41 Dose: 550 mg Rivaroxaban (Xarelto -) 20 mg PO DAILY@1800 [facility] Sertraline HCl (Zoloft -) 50 mg PO DAILY [facility] Last Admin: 08/20/17 09:01 Dose: 50 mg - Objective Vital Signs: Vital Signs Temperature 97.7 F 08/21/17 06:11 Pulse Rate 84 08/21/17 06:11 Respiratory Rate 20 08/21/17 06:11 Blood Pressure 155/77 08/21/17 06:11 O2 Sat by Pulse Oximetry (%) 97 08/20/17 20:34 Cardiovascular: Yes: S1, S2 Respiratory: Yes: Regular, CTA Bilaterally Gastrointestinal: Yes: Normal Bowel Sounds, Soft Extremities: Yes: Calf Tenderness, Erythema Edema: Yes Integumentary: Yes: Erythema Wound/Incision: Yes: Dressing Removed Labs: INR, PTT INR 1.10 (0.82-1.09) 08/19/17 17:35 Assessment/Plan - Problems (1) Cellulitis Assessment/Plan: ID on board iv zosyn doppler negative for dvt no fracture vascular consult elevated ESR Code(s): L03.90 - CELLULITIS, UNSPECIFIED Qualifiers: Site of cellulitis: extremity Site of cellulitis of extremity: lower extremity Laterality: left Qualified Code(s): L03.116 - Cellulitis of left lower limb (2) Leg ulcer, left Assessment/Plan: wound culture sent vascular eval ID on board' isolation Code(s): L97.929 - NON-PRS CHRONIC ULC UNSP PRT OF L LOW LEG W UNSP SEVERITY Qualifiers: Non-pressure ulcer stage: unspecified non-pressure ulcer stage Qualified Code(s): L97.929 - Non-pressure chronic ulcer of unspecified part of left lower leg with unspecified severity (3) Alkaline phosphatase elevation Assessment/Plan: CT scan noted nodular liver possible cirrhosis on rifaximin Code(s): R74.8 - ABNORMAL LEVELS OF OTHER SERUM ENZYMES (4) Atrial fibrillation Assessment/Plan: metoprolol and aspirin start xarelto ekg Code(s): I48.91 - UNSPECIFIED ATRIAL FIBRILLATION (5) Hypothyroidism Assessment/Plan: synthroid tsh check Code(s): E03.9 - HYPOTHYROIDISM, UNSPECIFIED (6) CKD (chronic kidney disease) Assessment/Plan: renal eval will monitor bun/cr Code(s): N18.9 - CHRONIC KIDNEY DISEASE, UNSPECIFIED (7) Edema Assessment/Plan: vascular consult--r/o dvt ac--xarelto echo
[2017-08-21 09:11] LABS: BASO % 1.3 % (0-2.0); EOS % 3.5 % (0-4.5); HEMATOCRIT 33.9 % (32.4-45.2); HEMOGLOBIN 11.5 GM/dL (10.7-15.3); LYMPH % 20.7 % (8-40); MCHC 33.9 g/dl (32.0-36.0); MEAN CELL VOLUME 97.4 fl (80-96); MEAN PLT VOLUME 10.1 fl (7.5-11.1); NEUT % 62.5 % (42.8-82.8); PLATELET COUNT 177 K/MM3 (134-434); RBC 3.48 M/mm3 (3.60-5.2); RDW 13.3 % (11.6-15.6)
[2017-08-21 10:28] LABS: CHLORIDE 108 mmol/L (98-107); POTASSIUM 4.3 mmol/L (3.5-5.1); SODIUM 139 mmol/L (136-145)
[2017-08-21] MEDS: MULTIVITAMINS (DAILY MVI) TABLET (FP) PO SCH (10:32)
[2017-08-21] MEDS: METOPROLOL TARTRATE 50 MG TABLET (FP) PO SCH ×2 (10:32→22:08)
[2017-08-21] MEDS: PANTOPRAZOLE 40 MG TABLET (FP) PO SCH (10:33)
[2017-08-21] MEDS: SERTRALINE HCL 50 MG TABLET (FP) PO SCH (10:33)
[2017-08-21] MEDS: FERROUS SO4 325 MG TABLET (FP) PO SCH (10:33)
[2017-08-21] MEDS: ASPIRIN COATED 81 MG TABLET.EC PO SCH (10:33)
[2017-08-21] MEDS: RIFAXIMIN 550 MG TABLET (UD) PO SCH ×2 (10:34→22:08)
[2017-08-21] MEDS: FEBUXOSTAT 40 MG TAB PO SCH (10:34)
[2017-08-21 11:13] LABS: ERYTHROCYTE SEDIMENTATION RATE 36 mm/hr (0-30)
[2017-08-21 11:54] LABS: ALBUMIN 3.3 g/dl (3.4-5.0); ALK PHOS 269 U/L (45-117); ANION GAP 11 (8-16); BLOOD UREA NITROGEN 33 mg/dL (7-18); CALCIUM 8.5 mg/dL (8.5-10.1); CO2 20 mmol/L (21-32); CREATININE 1.5 mg/dL (0.55-1.02); GLUCOSE,RANDOM 100 mg/dL (74-106); SGOT/AST 25 U/L (15-37); SGPT/ALT 16 U/L (12-78); URIC ACID 4.2 mg/dL (2.6-7.2)
--- NOTE | 2017-08-21 12:32 | PN ---
Progress Note (short form) - Note Progress Note: alert nad no complaints Vital Signs Period Temp Pulse Resp BP Sys/Castro Pulse Ox Last 24 Hr 97.5 F-98 F 80-91 18-20 115-155/71-91 97-98 cor-rrr lungs clear abd soft,nt ext less erythema of the left leg ulcer less purulence CBC, BMP 08/21/17 06:00 08/21/17 06:00 Microbiology 08/20/17 13:15 Ulcer Wound Culture - Preliminary Presumptive Mrsa (Pbp2a Pos) 08/19/17 18:10 Urine - Urine - Catheterized Urine Culture - Preliminary Lactose Fermenting Neg Bacilli UA negative Laboratory Tests 08/21/17 06:00 Random Vancomycin 6.836 imp/reccd resolving cellulitis/infected ulcer pam d/c zosyn ua is negative, no UTI continue vancomycin contact isolation celluliits- infected ulcer pam Problem List - Problems (1) Cellulitis Code(s): L03.90 - CELLULITIS, UNSPECIFIED Qualifiers: Site of cellulitis: extremity Site of cellulitis of extremity: lower extremity Laterality: left Qualified Code(s): L03.116 - Cellulitis of left lower limb (2) Infected ulcer of skin Code(s): L98.499 - NON-PRESSURE CHRONIC ULCER OF SKIN OF SITES W UNSP SEVERITY; L08.9 - LOCAL INFECTION OF THE SKIN AND SUBCUTANEOUS TISSUE, UNSP (3) Acute kidney injury Code(s): N17.9 - ACUTE KIDNEY FAILURE, UNSPECIFIED
--- NOTE | 2017-08-21 13:12 | EKG ---
Test Reason : Blood Pressure : / mmHG Vent. Rate : 063 BPM Atrial Rate : 394 BPM P-R Int : 000 ms QRS Dur : 102 ms QT Int : 424 ms P-R-T Axes : 000 024 268 degrees QTc Int : 433 ms ATRIAL FIBRILLATION INCOMPLETE RIGHT BUNDLE BRANCH BLOCK ABNORMAL ECG WHEN COMPARED WITH ECG OF 19-AUG-2017 15:27, PREVIOUS ECG HAS UNDETERMINED RHYTHM, NEEDS REVIEW Confirmed by NIKO BOWERS MD ([id number]) on 08/21/2017 1:12:04 PM Referred By: Den LIZ Confirmed By:NIKO BOWERS MD
[2017-08-21] MEDS: VANCOMYCIN 1,000 MG in DEXTROSE 5%-WATER - 250 ML IVPB SCH (13:38)
[2017-08-21 15:44] LABS: MAGNESIUM 2.1 mg/dL (1.8-2.4); PHOSPHOROUS 3.7 mg/dL (2.5-4.9)
[2017-08-21] MEDS: SODIUM CHLORIDE 1,000 ML IV SCH (17:01)
[2017-08-21] MEDS: RIVAROXABAN 20 MG TABLET PO SCH (17:03)
--- NOTE | 2017-08-21 17:43 | PN ---
Progress Note (short form) - Note Progress Note: Vascular Surgery Pt seen and examined. Left plummer wound. Cellulitis is getting better. Wound is tender to touch Pt with palpable DP pulse. Apply bacitracin to wound daily. Leg elevation Does not need debridement at this time. Vignesh Courtney DO
--- NOTE | 2017-08-21 17:53 | PN ---
Progress Note (short form) - Note Progress Note: Renal follow up for CARIN Pt seen and examined at the bedside no acute complaints no sob, chest pain, abd pain leg pain is improved Vital Signs Temperature 97.5 F L 08/21/17 13:53 Pulse Rate 76 08/21/17 13:53 Respiratory Rate 20 08/21/17 13:53 Blood Pressure 121/68 08/21/17 13:53 O2 Sat by Pulse Oximetry (%) 98 08/21/17 09:00 Intake & Output 08/18/17 08/19/17 08/20/17 08/21/17 23:59 23:59 23:59 23:59 Intake Total 1380 2095 Balance 1380 2095 Weight 64 kg 71.985 kg 76.657 kg NAD awake and alert MMM, No JVD RRR, No M/R CTA, no wheeze or rales soft NT/ND No LE edema, no cyanosis or clubbing + erythema L> R Current Medications Acetaminophen (Tylenol -) 650 mg PO Q4H PRN PRN Reason: PAIN Last Admin: 08/20/17 17:58 Dose: 650 mg Albuterol Sulfate (Ventolin 0.083% Nebulizer Soln -) 1 amp NEB Q6H PRN PRN Reason: SHORT OF BREATH/WHEEZING Aspirin (Ecotrin -) 81 mg PO DAILY [facility] Last Admin: 08/21/17 10:33 Dose: 81 mg Bacitracin (Bacitracin -) 1 applic TP DAILY [facility] Docusate Sodium (Colace -) 100 mg PO TID PRN PRN Reason: CONSTIPATION Febuxostat (Uloric -) 40 mg PO DAILY [facility] Last Admin: 08/21/17 10:34 Dose: 40 mg Ferrous Sulfate (Feosol -) 325 mg PO DAILY [facility] Last Admin: 08/21/17 10:33 Dose: 325 mg Sodium Chloride (Normal Saline -) 1,000 mls @ 83 mls/hr IV ASDIR [facility] Last Admin: 08/21/17 17:01 Dose: Not Given Vancomycin HCl 1,000 mg/ (Dextrose) 250 mls @ 166.667 mls/hr IVPB Q24H [facility] PRN Reason: Protocol Last Admin: 08/21/17 13:38 Dose: 166.667 mls/hr Levothyroxine Sodium (Synthroid -) 25 mcg PO DAILY@0700 [facility] Last Admin: 08/21/17 06:23 Dose: 25 mcg Metoprolol Tartrate (Lopressor -) 100 mg PO BID [facility] Last Admin: 08/21/17 10:32 Dose: 100 mg Multivitamins/Minerals/Vitamin C (Tab-A-Vit -) 1 tab PO DAILY [facility] Last Admin: 08/21/17 10:32 Dose: 1 tab Pantoprazole Sodium (Protonix -) 40 mg PO DAILY [facility] Last Admin: 08/21/17 10:33 Dose: 40 mg Rifaximin (Xifaxan -) 550 mg PO BID [facility] Last Admin: 08/21/17 10:34 Dose: 550 mg Rivaroxaban (Xarelto -) 20 mg PO DAILY@1800 [facility] Last Admin: 08/21/17 17:03 Dose: 20 mg Sertraline HCl (Zoloft -) 50 mg PO DAILY [facility] Last Admin: 08/21/17 10:33 Dose: 50 mg 81 year old woman with PMhx of Hypertension (10 years), Hypothyrodism, Asthma who presented with LE cellulitis that was refractory to outpatient Abx and found to have BUN/Cr of 41/1.6. #Acute Renal Injury likely related to intravascular volume depletion in setting of acute infection #LE Cellulitis #Hypertension Renal function stable at this time (holding ABRAM today) UA w/o proteinuira continue IVF for now continue Abx as per NAE Clark DO
[2017-08-21] MEDS: BACITRACIN 15 GM TUBE TOPICAL OINTMENT TP SCH (20:33)
[2017-08-22] MEDS: LEVOTHYROXINE NA 25 MCG TABLET (FP) PO SCH (06:05)
--- NOTE | 2017-08-22 07:34 | PN ---
Progress Note, Physician - Current Medication List Current Medications: Active Medications Acetaminophen (Tylenol -) 650 mg PO Q4H PRN PRN Reason: PAIN Last Admin: 08/20/17 17:58 Dose: 650 mg Albuterol Sulfate (Ventolin 0.083% Nebulizer Soln -) 1 amp NEB Q6H PRN PRN Reason: SHORT OF BREATH/WHEEZING Aspirin (Ecotrin -) 81 mg PO DAILY [facility] Last Admin: 08/21/17 10:33 Dose: 81 mg Bacitracin (Bacitracin -) 1 applic TP DAILY [facility] Last Admin: 08/21/17 20:33 Dose: Not Given Docusate Sodium (Colace -) 100 mg PO TID PRN PRN Reason: CONSTIPATION Febuxostat (Uloric -) 40 mg PO DAILY [facility] Last Admin: 08/21/17 10:34 Dose: 40 mg Ferrous Sulfate (Feosol -) 325 mg PO DAILY [facility] Last Admin: 08/21/17 10:33 Dose: 325 mg Sodium Chloride (Normal Saline -) 1,000 mls @ 83 mls/hr IV ASDIR [facility] Last Admin: 08/21/17 17:01 Dose: Not Given Vancomycin HCl 1,000 mg/ (Dextrose) 250 mls @ 166.667 mls/hr IVPB Q24H [facility] PRN Reason: Protocol Last Admin: 08/21/17 13:38 Dose: 166.667 mls/hr Levothyroxine Sodium (Synthroid -) 25 mcg PO DAILY@0700 [facility] Last Admin: 08/22/17 06:05 Dose: 25 mcg Metoprolol Tartrate (Lopressor -) 100 mg PO BID [facility] Last Admin: 08/21/17 22:08 Dose: 100 mg Multivitamins/Minerals/Vitamin C (Tab-A-Vit -) 1 tab PO DAILY [facility] Last Admin: 08/21/17 10:32 Dose: 1 tab Pantoprazole Sodium (Protonix -) 40 mg PO DAILY [facility] Last Admin: 08/21/17 10:33 Dose: 40 mg Rifaximin (Xifaxan -) 550 mg PO BID [facility] Last Admin: 08/21/17 22:08 Dose: 550 mg Rivaroxaban (Xarelto -) 20 mg PO DAILY@1800 [facility] Last Admin: 08/21/17 17:03 Dose: 20 mg Sertraline HCl (Zoloft -) 50 mg PO DAILY [facility] Last Admin: 08/21/17 10:33 Dose: 50 mg - Objective Vital Signs: Vital Signs Temperature 97.6 F 08/22/17 06:00 Pulse Rate 77 08/22/17 06:00 Respiratory Rate 20 08/22/17 06:00 Blood Pressure 142/87 08/22/17 06:00 O2 Sat by Pulse Oximetry (%) 98 08/21/17 21:00 Cardiovascular: Yes: S1, S2 Respiratory: Yes: Regular, CTA Bilaterally Gastrointestinal: Yes: Normal Bowel Sounds, Soft Extremities: Yes: Erythema Edema: Yes Labs: CBC, BMP 08/21/17 06:00 08/21/17 06:00 INR, PTT INR 1.10 (0.82-1.09) 08/19/17 17:35 Assessment/Plan - Problems (1) Cellulitis Assessment/Plan: ID on board iv zosyn doppler negative for dvt no fracture vascular consult elevated ESR Code(s): L03.90 - CELLULITIS, UNSPECIFIED Qualifiers: Site of cellulitis: extremity Site of cellulitis of extremity: lower extremity Laterality: left Qualified Code(s): L03.116 - Cellulitis of left lower limb (2) Leg ulcer, left Assessment/Plan: wound culture sent vascular eval ID on board' isolation Code(s): L97.929 - NON-PRS CHRONIC ULC UNSP PRT OF L LOW LEG W UNSP SEVERITY Qualifiers: Non-pressure ulcer stage: unspecified non-pressure ulcer stage Qualified Code(s): L97.929 - Non-pressure chronic ulcer of unspecified part of left lower leg with unspecified severity (3) Alkaline phosphatase elevation Assessment/Plan: CT scan noted nodular liver possible cirrhosis on rifaximin Code(s): R74.8 - ABNORMAL LEVELS OF OTHER SERUM ENZYMES (4) Atrial fibrillation Assessment/Plan: metoprolol and aspirin start xarelto ekg Code(s): I48.91 - UNSPECIFIED ATRIAL FIBRILLATION (5) Hypothyroidism Assessment/Plan: synthroid tsh check Code(s): E03.9 - HYPOTHYROIDISM, UNSPECIFIED (6) CKD (chronic kidney disease) Assessment/Plan: renal eval will monitor bun/cr Code(s): N18.9 - CHRONIC KIDNEY DISEASE, UNSPECIFIED (7) Edema Assessment/Plan: vascular consult--r/o dvt ac--xarelto echo d/w pt regarding snf agrees to go to [facility]
[2017-08-22] MEDS ORDERED: PT OWN MED DRAWER 7, Y5N ONE ×2 (09:58→12:29)
[2017-08-22] MEDS: SODIUM CHLORIDE 1,000 ML IV SCH ×2 (09:59→22:58)
[2017-08-22] MEDS: SERTRALINE HCL 50 MG TABLET (FP) PO SCH (10:00)
[2017-08-22] MEDS: MULTIVITAMINS (DAILY MVI) TABLET (FP) PO SCH (10:00)
[2017-08-22] MEDS: FEBUXOSTAT 40 MG TAB PO SCH (10:00)
[2017-08-22] MEDS: ASPIRIN COATED 81 MG TABLET.EC PO SCH (10:00)
[2017-08-22] MEDS: RIFAXIMIN 550 MG TABLET (UD) PO SCH ×2 (10:00→22:57)
[2017-08-22] MEDS: PANTOPRAZOLE 40 MG TABLET (FP) PO SCH (10:00)
[2017-08-22] MEDS: METOPROLOL TARTRATE 50 MG TABLET (FP) PO SCH ×2 (10:00→22:57)
[2017-08-22] MEDS: BACITRACIN 15 GM TUBE TOPICAL OINTMENT TP SCH (10:00)
[2017-08-22] MEDS: FERROUS SO4 325 MG TABLET (FP) PO SCH (10:00)
[2017-08-22] MEDS: VANCOMYCIN 1,000 MG in DEXTROSE 5%-WATER - 250 ML IVPB SCH (12:50)
[2017-08-22 16:14] LABS: ANION GAP 12 (8-16); BLOOD UREA NITROGEN 29 mg/dL (7-18); CHLORIDE 108 mmol/L (98-107); CO2 20 mmol/L (21-32); CREATININE 1.3 mg/dL (0.55-1.02); GLUCOSE,RANDOM 159 mg/dL (74-106); POTASSIUM 4.6 mmol/L (3.5-5.1); SODIUM 140 mmol/L (136-145)
--- NOTE | 2017-08-22 16:23 | PN ---
Progress Note (short form) - Note Progress Note: Renal follow up for CARIN Pt seen and examined at the bedside no acute complaints denies any sob, chest pain, abd pain legs feel better no fever or chills on IVF making urine Vital Signs Temperature 98.3 F 08/22/17 15:27 Pulse Rate 85 08/22/17 15:27 Respiratory Rate 20 08/22/17 15:27 Blood Pressure 147/88 08/22/17 15:27 O2 Sat by Pulse Oximetry (%) 98 08/21/17 21:00 Intake & Output 08/19/17 08/20/17 08/21/17 08/22/17 23:59 23:59 23:59 23:59 Intake Total 1380 2684 1070 Balance 1380 2684 1070 Weight 64 kg 71.985 kg 76.657 kg 77.655 kg NAD awake and alert MMM, No JVD RRR, No M/R CTA, no wheeze or rales soft NT/ND No LE edema, no cyanosis or clubbing + erythema L> R CBC, BMP 08/21/17 06:00 08/22/17 15:15 Current Medications Acetaminophen (Tylenol -) 650 mg PO Q4H PRN PRN Reason: PAIN Last Admin: 08/20/17 17:58 Dose: 650 mg Albuterol Sulfate (Ventolin 0.083% Nebulizer Soln -) 1 amp NEB Q6H PRN PRN Reason: SHORT OF BREATH/WHEEZING Aspirin (Ecotrin -) 81 mg PO DAILY [facility] Last Admin: 08/22/17 10:00 Dose: 81 mg Bacitracin (Bacitracin -) 1 applic TP DAILY [facility] Last Admin: 08/22/17 10:00 Dose: 1 applic Docusate Sodium (Colace -) 100 mg PO TID PRN PRN Reason: CONSTIPATION Febuxostat (Uloric -) 40 mg PO DAILY [facility] Last Admin: 08/22/17 10:00 Dose: 40 mg Ferrous Sulfate (Feosol -) 325 mg PO DAILY [facility] Last Admin: 08/22/17 10:00 Dose: 325 mg Sodium Chloride (Normal Saline -) 1,000 mls @ 83 mls/hr IV ASDIR [facility] Last Admin: 08/22/17 09:59 Dose: 83 mls/hr Vancomycin HCl 1,000 mg/ (Dextrose) 250 mls @ 166.667 mls/hr IVPB Q24H [facility] PRN Reason: Protocol Last Admin: 08/22/17 12:50 Dose: 166.667 mls/hr Levothyroxine Sodium (Synthroid -) 25 mcg PO DAILY@0700 [facility] Last Admin: 08/22/17 06:05 Dose: 25 mcg Metoprolol Tartrate (Lopressor -) 100 mg PO BID [facility] Last Admin: 08/22/17 10:00 Dose: 100 mg Multivitamins/Minerals/Vitamin C (Tab-A-Vit -) 1 tab PO DAILY [facility] Last Admin: 08/22/17 10:00 Dose: 1 tab Pantoprazole Sodium (Protonix -) 40 mg PO DAILY [facility] Last Admin: 08/22/17 10:00 Dose: 40 mg Rifaximin (Xifaxan -) 550 mg PO BID [facility] Last Admin: 08/22/17 10:00 Dose: 550 mg Rivaroxaban (Xarelto -) 20 mg PO DAILY@1800 [facility] Last Admin: 08/21/17 17:03 Dose: 20 mg Sertraline HCl (Zoloft -) 50 mg PO DAILY [facility] Last Admin: 08/22/17 10:00 Dose: 50 mg 81 year old woman with PMhx of Hypertension (10 years), Hypothyrodism, Asthma who presented with LE cellulitis that was refractory to outpatient Abx and found to have BUN/Cr of 41/1.6. #Acute Renal Injury likely related to intravascular volume depletion in setting of acute infection #LE Cellulitis #Hypertension #Metabolic acidosis Renal function with mild improvement today will decrease IVF rate to 50cc per hour and plan to stop in the AM as pt is tolerating oral diet and appears evolemic continue Abx as per Primary hold ABRAM for now Trend serum bicarb on low rate IVF, no bicarb for now Kev Clark DO
[2017-08-22] MEDS: RIVAROXABAN 20 MG TABLET PO SCH (18:19)
[2017-08-23] MEDS: LEVOTHYROXINE NA 25 MCG TABLET (FP) PO SCH (06:37)
[2017-08-23 08:51] LABS: BASO % 1.5 % (0-2.0); EOS % 2.7 % (0-4.5); HEMATOCRIT 34.6 % (32.4-45.2); HEMOGLOBIN 11.5 GM/dL (10.7-15.3); LYMPH % 15.9 % (8-40); MCH 32.9 pg (25.7-33.7); MCHC 33.3 g/dl (32.0-36.0); MEAN CELL VOLUME 98.8 fl (80-96); MEAN PLT VOLUME 10.3 fl (7.5-11.1); MONO % 12.7 % (3.8-10.2); NEUT % 67.2 % (42.8-82.8); PLATELET COUNT 168 K/MM3 (134-434); RDW 13.7 % (11.6-15.6); WHITE BLOOD COUNT 8.5 K/mm3 (4.0-10.0)
[2017-08-23 09:26] LABS: ANION GAP 10 (8-16); BLOOD UREA NITROGEN 27 mg/dL (7-18); CALCIUM 8.2 mg/dL (8.5-10.1); CHLORIDE 110 mmol/L (98-107); CO2 17 mmol/L (21-32); GLUCOSE,RANDOM 91 mg/dL (74-106); POTASSIUM 4.8 mmol/L (3.5-5.1); SODIUM 137 mmol/L (136-145)
[2017-08-23 09:27] LABS: CREATININE 1.3 mg/dL (0.55-1.02); PHOSPHOROUS 3.4 mg/dL (2.5-4.9)
[2017-08-23] MEDS ORDERED: PT OWN MED DRAWER 7, Y5N ONE ×2 (10:01→12:15)
[2017-08-23] MEDS: PANTOPRAZOLE 40 MG TABLET (FP) PO SCH (10:03)
[2017-08-23] MEDS: FERROUS SO4 325 MG TABLET (FP) PO SCH (10:03)
[2017-08-23] MEDS: SERTRALINE HCL 50 MG TABLET (FP) PO SCH (10:03)
[2017-08-23] MEDS: RIFAXIMIN 550 MG TABLET (UD) PO SCH ×2 (10:03→21:52)
[2017-08-23] MEDS: ASPIRIN COATED 81 MG TABLET.EC PO SCH (10:03)
[2017-08-23] MEDS: METOPROLOL TARTRATE 50 MG TABLET (FP) PO SCH ×2 (10:03→21:52)
[2017-08-23] MEDS: MULTIVITAMINS (DAILY MVI) TABLET (FP) PO SCH (10:03)
[2017-08-23] MEDS: FEBUXOSTAT 40 MG TAB PO SCH (10:03)
[2017-08-23] MEDS: BACITRACIN 15 GM TUBE TOPICAL OINTMENT TP SCH (10:05)
--- NOTE | 2017-08-23 12:08 | PN ---
Progress Note (short form) - Note Progress Note: Renal follow up for CARIN Pt seen and examined at the bedside no acute complaints no sob, chest pain denies any N/V/D tolerating oral diet on IVF Vital Signs Temperature 97.9 F 08/23/17 09:40 Pulse Rate 101 H 08/23/17 09:40 Respiratory Rate 20 08/23/17 09:40 Blood Pressure 148/105 08/23/17 09:40 O2 Sat by Pulse Oximetry (%) 95 08/22/17 21:00 Intake & Output 08/20/17 08/21/17 08/22/17 08/23/17 23:59 23:59 23:59 23:59 Intake Total 1380 2684 2469 200 Balance 1380 2684 2469 200 Weight 71.985 kg 76.657 kg 77.655 kg 81.873 kg NAD awake and alert MMM, No JVD RRR, No M/R CTA, no wheeze or rales soft NT/ND No LE edema, no cyanosis or clubbing + erythema L> R CBC, BMP 08/23/17 07:45 08/23/17 07:45 Laboratory Tests 08/23/17 07:45 Calcium 8.2 L Phosphorus 3.4 Magnesium 2.0 Current Medications Acetaminophen (Tylenol -) 650 mg PO Q4H PRN PRN Reason: PAIN Last Admin: 08/20/17 17:58 Dose: 650 mg Albuterol Sulfate (Ventolin 0.083% Nebulizer Soln -) 1 amp NEB Q6H PRN PRN Reason: SHORT OF BREATH/WHEEZING Aspirin (Ecotrin -) 81 mg PO DAILY [facility] Last Admin: 08/23/17 10:03 Dose: 81 mg Bacitracin (Bacitracin -) 1 applic TP DAILY [facility] Last Admin: 08/23/17 10:05 Dose: 1 applic Docusate Sodium (Colace -) 100 mg PO TID PRN PRN Reason: CONSTIPATION Febuxostat (Uloric -) 40 mg PO DAILY [facility] Last Admin: 08/23/17 10:03 Dose: 40 mg Ferrous Sulfate (Feosol -) 325 mg PO DAILY [facility] Last Admin: 08/23/17 10:03 Dose: 325 mg Vancomycin HCl 1,000 mg/ (Dextrose) 250 mls @ 166.667 mls/hr IVPB Q24H [facility] PRN Reason: Protocol Last Admin: 08/22/17 12:50 Dose: 166.667 mls/hr Levothyroxine Sodium (Synthroid -) 37.5 mcg PO DAILY@0700 [facility] Metoprolol Tartrate (Lopressor -) 100 mg PO BID [facility] Last Admin: 08/23/17 10:03 Dose: 100 mg Multivitamins/Minerals/Vitamin C (Tab-A-Vit -) 1 tab PO DAILY [facility] Last Admin: 08/23/17 10:03 Dose: 1 tab Pantoprazole Sodium (Protonix -) 40 mg PO DAILY [facility] Last Admin: 08/23/17 10:03 Dose: 40 mg Rifaximin (Xifaxan -) 550 mg PO BID [facility] Last Admin: 08/23/17 10:03 Dose: 550 mg Rivaroxaban (Xarelto -) 20 mg PO DAILY@1800 [facility] Last Admin: 08/22/17 18:19 Dose: 20 mg Sertraline HCl (Zoloft -) 50 mg PO DAILY [facility] Last Admin: 08/23/17 10:03 Dose: 50 mg 81 year old woman with PMhx of Hypertension (10 years), Hypothyrodism, Asthma who presented with LE cellulitis that was refractory to outpatient Abx and found to have BUN/Cr of 41/1.6. #Acute Renal Injury likely related to intravascular volume depletion in setting of acute infection #LE Cellulitis #Hypertension #Metabolic acidosis Renal function is improved and stable Serum Bicarb has downtrended w/o anion gap likely related to chloride infusion from saline as pt w/o any GI losses will D/C IVF today and trend serum Bicarb Trend BP off IVF Continue Abx as per primary for LE cellulitis Kev Clark DO [id number]
[2017-08-23] MEDS: VANCOMYCIN 1,000 MG in DEXTROSE 5%-WATER - 250 ML IVPB SCH (12:33)
--- NOTE | 2017-08-23 13:06 | PN ---
Progress Note (short form) - Note Progress Note: alert nad no complaints Vital Signs Period Temp Pulse Resp BP Sys/Castro Pulse Ox Last 24 Hr 97.4 F-98.4 F 77-101 18-20 123-148/76-105 95 cor-rrr lungs clear abd soft,nt ext minimal erythema RLE, shallow ulcer noted UA negative Laboratory Tests 08/21/17 06:00 Random Vancomycin 6.836 CBC, BMP 08/23/17 07:45 08/23/17 07:45 Microbiology 08/20/17 13:15 Ulcer Gram Stain - Final 08/20/17 13:15 Ulcer Wound Culture - Preliminary S Aureus Alpha Hemolytic Streptococcus 08/19/17 18:10 Urine - Urine - Catheterized Urine Culture - Final Escherichia Coli imp/reccd resolving cellulitis/infected ulcer pam day #5 vancomycin switch to po doxycycline for 5 days mupirocin to ulcer pam-improved Problem List - Problems (1) Cellulitis Code(s): L03.90 - CELLULITIS, UNSPECIFIED Qualifiers: Site of cellulitis: extremity Site of cellulitis of extremity: lower extremity Laterality: left Qualified Code(s): L03.116 - Cellulitis of left lower limb (2) Infected ulcer of skin Code(s): L98.499 - NON-PRESSURE CHRONIC ULCER OF SKIN OF SITES W UNSP SEVERITY; L08.9 - LOCAL INFECTION OF THE SKIN AND SUBCUTANEOUS TISSUE, UNSP (3) Acute kidney injury Code(s): N17.9 - ACUTE KIDNEY FAILURE, UNSPECIFIED
--- NOTE | 2017-08-23 13:16 | DS ---
Physical Examination Vital Signs: Vital Signs Temperature 97.9 F 08/23/17 09:40 Pulse Rate 101 H 08/23/17 09:40 Respiratory Rate 20 08/23/17 09:40 Blood Pressure 148/105 08/23/17 09:40 O2 Sat by Pulse Oximetry (%) 95 08/22/17 21:00 Constitutional: Yes: Calm Neck: Yes: Trachea Midline Cardiovascular: Yes: Regular Rate and Rhythm, S1, S2 Respiratory: Yes: CTA Bilaterally Gastrointestinal: Yes: Normal Bowel Sounds, Soft Extremities: Yes: Erythema, Other (left leg ulcer ,erythema is much less) Neurological: Yes: Alert, Oriented Labs: CBC, BMP 08/23/17 07:45 08/23/17 07:45 Discharge Summary Reason For Visit: ACUTE KIDNEY INJURY, PRESSURE ULCER, CELLULITIS Current Active Problems Abdominal pain (Acute) Acute kidney injury (Acute) CKD (chronic kidney disease) (Acute) Cellulitis (Acute) Decubitus ulcer (Acute) Infected ulcer of skin (Acute) Leg ulcer, left (Acute) Hospital Course: CHIEF COMPLAINT: L leg pain HISTORY OF PRESENT ILLNESS: 81 year old female with a history of dementia, CHF, hypothyroidism, afib, asthma presents to the hospital complaining of pain in her left leg and the inability to walk for 3 days. Patient is a very poor historian and a reliable history is unable to be taken without anyone present at bedside. As per ED note , patient was brought to ED by Dr. Moore's request for wound on her left leg that was worsening and failed outpatient treatment with cefdinir. Patient complains of vague, mild abdominal pain in the left lower and right lower quadrants. Denies fevers, chills, chest pain, SOB, nausea, vomiting, diarrhea. ER course was notable for: (1) WBC 6.1 (2) afebrile (3) No DVT PAST MEDICAL HISTORY: dementia, CHF, hypothyroidism, afib, asthma PAST SURGICAL HISTORY: unknown Social History: Smoking: none Alcohol: none Drugs: none patient admitted for LE cellultis in iv vancomycin now po doxycycline,doppler of leg done no DVT noted hypothyroid tsh elevated increase synthroid dose FU with PMD as outpatient in 4 weeks patient got ivf in hospital,MRSA in wound Microbiology 08/20/17 13:15 Ulcer Gram Stain - Final 08/20/17 13:15 Ulcer Wound Culture - Preliminary Mr S Aureus Alpha Hemolytic Streptococcus iv vancomycin to po doxycycline for 5 days UA is negative no need to treat with abx Condition: Guarded - Instructions Diet, Activity, Other Instructions: follow up PMD in 3 weeks to check TSH doxycycline for 5 days Referrals: Hector Juárez MD [Primary Care Provider] - Disposition: VNS/HOME HEALTH CARE - Home Medications Comprehensive Discharge Medication List: Ambulatory Orders Acetaminophen [Tylenol Extra Strength] 500 mg PO Q4HWA PRN 03/08/16 Aspirin [Aspirin EC] 81 mg PO DAILY 03/08/16 Dexlansoprazole [Dexilant] 60 mg PO DAILY 03/08/16 Febuxostat [Uloric -] 40 mg PO DAILY 03/08/16 Ferrous Sulfate [Feosol] 325 mg PO DAILY 03/08/16 Levofloxacin [Levaquin] 500 mg PO DAILY #6 tablet 03/08/16 Levothyroxine [Synthroid -] 25 mcg PO DAILY 03/08/16 Lisinopril [Prinivil] 20 mg PO DAILY 03/08/16 Metoclopramide HCl 5 mg PO ASDIR 03/08/16 Metoprolol Tartrate [Lopressor] 100 mg PO BID 03/08/16 Multivitamins [Tab-A-Vit -] 1 tab PO DAILY 03/08/16 Rifaximin [Xifaxan] 550 mg PO BID 03/08/16 Sertraline HCl [Zoloft -] 50 mg PO DAILY 03/08/16 Cephalexin [Keflex] 500 mg PO Q6H #20 capsule 03/12/16
--- NOTE | 2017-08-23 13:27 | PN ---
Progress Note (short form) - Note Progress Note: tried to talk to daughter left a message on her cell phone Problem List - Problems (1) Cellulitis Code(s): L03.90 - CELLULITIS, UNSPECIFIED Qualifiers: Site of cellulitis: extremity Site of cellulitis of extremity: lower extremity Laterality: left Qualified Code(s): L03.116 - Cellulitis of left lower limb (2) Leg ulcer, left Code(s): L97.929 - NON-PRS CHRONIC ULC UNSP PRT OF L LOW LEG W UNSP SEVERITY Qualifiers: Non-pressure ulcer stage: unspecified non-pressure ulcer stage Qualified Code(s): L97.929 - Non-pressure chronic ulcer of unspecified part of left lower leg with unspecified severity (3) Alkaline phosphatase elevation Code(s): R74.8 - ABNORMAL LEVELS OF OTHER SERUM ENZYMES (4) Atrial fibrillation Code(s): I48.91 - UNSPECIFIED ATRIAL FIBRILLATION (5) Hypothyroidism Code(s): E03.9 - HYPOTHYROIDISM, UNSPECIFIED (6) CKD (chronic kidney disease) Code(s): N18.9 - CHRONIC KIDNEY DISEASE, UNSPECIFIED
[2017-08-23] MEDS: MUPIROCIN CA 2% TOPICAL CREAM 15 GM TUBE TP SCH ×2 (17:45→21:53)
[2017-08-23] MEDS: RIVAROXABAN 20 MG TABLET PO SCH (17:46)
[2017-08-23] MEDS: DOXYCYCLINE HYCLATE 100 MG CAPSULE PO SCH (17:46)
[2017-08-24] MEDS: LEVOTHYROXINE NA 25 MCG TABLET (FP) PO SCH (06:26)
--- NOTE | 2017-08-24 07:48 | PN ---
Progress Note, Physician Chief Complaint: ACUTE KIDNEY INJURY, PRESSURE ULCER, CELLULITIS History of Present Illness: pending discharge - Current Medication List Current Medications: Active Medications Acetaminophen (Tylenol -) 650 mg PO Q4H PRN PRN Reason: PAIN Last Admin: 08/20/17 17:58 Dose: 650 mg Albuterol Sulfate (Ventolin 0.083% Nebulizer Soln -) 1 amp NEB Q6H PRN PRN Reason: SHORT OF BREATH/WHEEZING Aspirin (Ecotrin -) 81 mg PO DAILY [facility] Last Admin: 08/23/17 10:03 Dose: 81 mg Docusate Sodium (Colace -) 100 mg PO TID PRN PRN Reason: CONSTIPATION Doxycycline Hyclate (Vibramycin -) 100 mg PO BID@1000,1800 [facility] Last Admin: 08/23/17 17:46 Dose: 100 mg Febuxostat (Uloric -) 40 mg PO DAILY [facility] Last Admin: 08/23/17 10:03 Dose: 40 mg Ferrous Sulfate (Feosol -) 325 mg PO DAILY@1400 [facility] Levothyroxine Sodium (Synthroid -) 37.5 mcg PO DAILY@0700 [facility] Last Admin: 08/24/17 06:26 Dose: 37.5 mcg Metoprolol Tartrate (Lopressor -) 100 mg PO BID [facility] Last Admin: 08/23/17 21:52 Dose: 100 mg Multivitamins/Minerals/Vitamin C (Tab-A-Vit -) 1 tab PO DAILY [facility] Last Admin: 08/23/17 10:03 Dose: 1 tab Mupirocin (Bactroban 2% Cream -) 1 applic TP BID [facility] Last Admin: 08/23/17 21:53 Dose: 1 applic Pantoprazole Sodium (Protonix -) 40 mg PO DAILY [facility] Last Admin: 08/23/17 10:03 Dose: 40 mg Rifaximin (Xifaxan -) 550 mg PO BID [facility] Last Admin: 08/23/17 21:52 Dose: 550 mg Rivaroxaban (Xarelto -) 20 mg PO DAILY@1800 [facility] Last Admin: 08/23/17 17:46 Dose: 20 mg Sertraline HCl (Zoloft -) 50 mg PO DAILY [facility] Last Admin: 08/23/17 10:03 Dose: 50 mg - Objective Vital Signs: Vital Signs Temperature 98 F 08/23/17 22:00 Pulse Rate 76 08/23/17 22:00 Respiratory Rate 20 08/23/17 22:00 Blood Pressure 138/89 08/23/17 22:00 O2 Sat by Pulse Oximetry (%) 98 08/23/17 21:00 Constitutional: Yes: Well Nourished, No Distress, Calm Cardiovascular: Yes: Pulse Irregular Respiratory: Yes: Regular Labs: CBC, BMP 08/23/17 07:45 08/23/17 07:45 INR, PTT INR 1.10 (0.82-1.09) 08/19/17 17:35 Problem List - Problems (1) Acute kidney injury Assessment/Plan: improved -outpatient labs Code(s): N17.9 - ACUTE KIDNEY FAILURE, UNSPECIFIED (2) Cellulitis Assessment/Plan: -po abx Code(s): L03.90 - CELLULITIS, UNSPECIFIED Qualifiers: Site of cellulitis: extremity Site of cellulitis of extremity: lower extremity Laterality: left Qualified Code(s): L03.116 - Cellulitis of left lower limb (3) Alkaline phosphatase elevation Assessment/Plan: trending down o/p labs Code(s): R74.8 - ABNORMAL LEVELS OF OTHER SERUM ENZYMES (4) Atrial fibrillation Assessment/Plan: -on Xarelto Code(s): I48.91 - UNSPECIFIED ATRIAL FIBRILLATION Qualifiers: Atrial fibrillation type: chronic Qualified Code(s): I48.2 - Chronic atrial fibrillation (5) Hypothyroidism Assessment/Plan: levothyroxine adjusted -repeat thyroid profile in 4 weeks o/p Code(s): E03.9 - HYPOTHYROIDISM, UNSPECIFIED Assessment/Plan see problem list pending discharge
[2017-08-24] MEDS: MUPIROCIN CA 2% TOPICAL CREAM 15 GM TUBE TP SCH ×2 (10:39→21:55)
[2017-08-24] MEDS: ASPIRIN COATED 81 MG TABLET.EC PO SCH (10:39)
[2017-08-24] MEDS: MULTIVITAMINS (DAILY MVI) TABLET (FP) PO SCH (10:39)
[2017-08-24] MEDS: METOPROLOL TARTRATE 50 MG TABLET (FP) PO SCH ×2 (10:39→21:54)
[2017-08-24] MEDS: PANTOPRAZOLE 40 MG TABLET (FP) PO SCH (10:39)
[2017-08-24] MEDS: RIFAXIMIN 550 MG TABLET (UD) PO SCH ×2 (10:40→21:54)
[2017-08-24] MEDS: FEBUXOSTAT 40 MG TAB PO SCH (10:40)
[2017-08-24] MEDS: SERTRALINE HCL 50 MG TABLET (FP) PO SCH (10:40)
[2017-08-24] MEDS: DOXYCYCLINE HYCLATE 100 MG CAPSULE PO SCH ×2 (10:40→17:53)
--- NOTE | 2017-08-24 11:32 | PN ---
Progress Note, Physician Chief Complaint: The patient seen in her room. Seems comfortable. Maintains good urine output. Dressings over the leg in place. - Current Medication List Current Medications: Active Medications Acetaminophen (Tylenol -) 650 mg PO Q4H PRN PRN Reason: PAIN Last Admin: 08/20/17 17:58 Dose: 650 mg Albuterol Sulfate (Ventolin 0.083% Nebulizer Soln -) 1 amp NEB Q6H PRN PRN Reason: SHORT OF BREATH/WHEEZING Last Admin: 08/24/17 08:12 Dose: 1 amp Aspirin (Ecotrin -) 81 mg PO DAILY [facility] Last Admin: 08/24/17 10:39 Dose: 81 mg Docusate Sodium (Colace -) 100 mg PO TID PRN PRN Reason: CONSTIPATION Doxycycline Hyclate (Vibramycin -) 100 mg PO BID@1000,1800 [facility] Last Admin: 08/24/17 10:40 Dose: 100 mg Febuxostat (Uloric -) 40 mg PO DAILY [facility] Last Admin: 08/24/17 10:40 Dose: 40 mg Ferrous Sulfate (Feosol -) 325 mg PO DAILY@1400 [facility] Levothyroxine Sodium (Synthroid -) 37.5 mcg PO DAILY@0700 [facility] Last Admin: 08/24/17 06:26 Dose: 37.5 mcg Metoprolol Tartrate (Lopressor -) 100 mg PO BID [facility] Last Admin: 08/24/17 10:39 Dose: 100 mg Multivitamins/Minerals/Vitamin C (Tab-A-Vit -) 1 tab PO DAILY [facility] Last Admin: 08/24/17 10:39 Dose: 1 tab Mupirocin (Bactroban 2% Cream -) 1 applic TP BID [facility] Last Admin: 08/24/17 10:39 Dose: 1 applic Pantoprazole Sodium (Protonix -) 40 mg PO DAILY [facility] Last Admin: 08/24/17 10:39 Dose: 40 mg Rifaximin (Xifaxan -) 550 mg PO BID [facility] Last Admin: 08/24/17 10:40 Dose: 550 mg Rivaroxaban (Xarelto -) 20 mg PO DAILY@1800 [facility] Last Admin: 08/23/17 17:46 Dose: 20 mg Sertraline HCl (Zoloft -) 50 mg PO DAILY [facility] Last Admin: 08/24/17 10:40 Dose: 50 mg - Objective Vital Signs: Vital Signs Temperature 98.6 F 08/24/17 10:00 Pulse Rate 89 08/24/17 10:00 Respiratory Rate 20 08/24/17 10:00 Blood Pressure 148/100 08/24/17 10:00 O2 Sat by Pulse Oximetry (%) 87 L 08/24/17 09:44 Constitutional: Yes: Well Nourished, No Distress HENT: Yes: Normocephalic Cardiovascular: Yes: Bradycardia, S1, S2 Respiratory: Yes: CTA Bilaterally Extremities: Yes: Other (DSressings in place over the LE) Labs: CBC, BMP 08/23/17 07:45 08/23/17 07:45 INR, PTT INR 1.10 (0.82-1.09) 08/19/17 17:35 Problem List - Problems (1) Acute kidney injury Code(s): N17.9 - ACUTE KIDNEY FAILURE, UNSPECIFIED (2) CKD (chronic kidney disease) Code(s): N18.9 - CHRONIC KIDNEY DISEASE, UNSPECIFIED (3) Cellulitis Code(s): L03.90 - CELLULITIS, UNSPECIFIED Qualifiers: Site of cellulitis: extremity Site of cellulitis of extremity: lower extremity Laterality: left Qualified Code(s): L03.116 - Cellulitis of left lower limb (4) Infected ulcer of skin Code(s): L98.499 - NON-PRESSURE CHRONIC ULCER OF SKIN OF SITES W UNSP SEVERITY; L08.9 - LOCAL INFECTION OF THE SKIN AND SUBCUTANEOUS TISSUE, UNSP (5) Atrial fibrillation Code(s): I48.91 - UNSPECIFIED ATRIAL FIBRILLATION Qualifiers: Atrial fibrillation type: chronic Qualified Code(s): I48.2 - Chronic atrial fibrillation (6) Hypertension Code(s): I10 - ESSENTIAL (PRIMARY) HYPERTENSION Assessment/Plan 81 year old woman with PMhx of Hypertension , Hypothyrodism, Asthma who presented with LE cellulitis that was refractory to outpatient Abx and found to have BUN/Cr of 41/1.6. The Renal functions have improved towards her baseline and is staying stable at Serum Cr 1.3mg. Acute Renal Injury likely related to intravascular volume depletion in setting of acute infection LE Cellulitis Hypertension Metabolic acidosis Renal function is improved and stable IV Antibiotics to continue. Metabolic Alkalosis remains stable. Will monitor the renal functions closely with you. Thank you. Kamini De Leon MD
[2017-08-24] MEDS: FERROUS SO4 325 MG TABLET (FP) PO SCH (14:32)
[2017-08-24] MEDS: RIVAROXABAN 20 MG TABLET PO SCH (17:53)
[2017-08-25] MEDS: LEVOTHYROXINE NA 25 MCG TABLET (FP) PO SCH (06:21)
[2017-08-25] MEDS: ALBUTEROL SO4 2.5/IPRATROPIUM 0.5 INH SOL 3 ML VIAL.NEB. NEB PRN (08:30)
[2017-08-25 08:44] LABS: ALBUMIN 3.2 g/dl (3.4-5.0); ANION GAP 11 (8-16); BLOOD UREA NITROGEN 27 mg/dL (7-18); CALCIUM 8.6 mg/dL (8.5-10.1); CHLORIDE 106 mmol/L (98-107); CO2 18 mmol/L (21-32); CREATININE 1.3 mg/dL (0.55-1.02); GLUCOSE,RANDOM 90 mg/dL (74-106); POTASSIUM 4.7 mmol/L (3.5-5.1); SGOT/AST 33 U/L (15-37); SGPT/ALT 26 U/L (12-78); SODIUM 135 mmol/L (136-145); URIC ACID 3.6 mg/dL (2.6-7.2)
[2017-08-25 08:46] LABS: ALK PHOS 262 U/L (45-117); BILIRUBIN,TOTAL 1.1 mg/dL (0.2-1.0); TOT PROT 6.6 g/dl (6.4-8.2)
--- NOTE | 2017-08-25 08:51 | PN ---
Progress Note, Physician Chief Complaint: ACUTE KIDNEY INJURY, PRESSURE ULCER, CELLULITIS History of Present Illness: NAD, in bed discharge held due to wheezing although pt denies any SOB - Current Medication List Current Medications: Active Medications Acetaminophen (Tylenol -) 650 mg PO Q4H PRN PRN Reason: PAIN Last Admin: 08/20/17 17:58 Dose: 650 mg Albuterol/Ipratropium (Duoneb -) 1 amp NEB Q4H PRN PRN Reason: SHORTNESS OF BREATH Last Admin: 08/25/17 08:30 Dose: 1 amp Aspirin (Ecotrin -) 81 mg PO DAILY [facility] Last Admin: 08/24/17 10:39 Dose: 81 mg Docusate Sodium (Colace -) 100 mg PO TID PRN PRN Reason: CONSTIPATION Doxycycline Hyclate (Vibramycin -) 100 mg PO BID@1000,1800 [facility] Last Admin: 08/24/17 17:53 Dose: 100 mg Febuxostat (Uloric -) 40 mg PO DAILY [facility] Last Admin: 08/24/17 10:40 Dose: 40 mg Ferrous Sulfate (Feosol -) 325 mg PO DAILY@1400 [facility] Last Admin: 08/24/17 14:32 Dose: 325 mg Levothyroxine Sodium (Synthroid -) 37.5 mcg PO DAILY@0700 [facility] Last Admin: 08/25/17 06:21 Dose: 37.5 mcg Metoprolol Tartrate (Lopressor -) 100 mg PO BID [facility] Last Admin: 08/24/17 21:54 Dose: 100 mg Multivitamins/Minerals/Vitamin C (Tab-A-Vit -) 1 tab PO DAILY [facility] Last Admin: 08/24/17 10:39 Dose: 1 tab Mupirocin (Bactroban 2% Cream -) 1 applic TP BID [facility] Last Admin: 08/24/17 21:55 Dose: 1 applic Pantoprazole Sodium (Protonix -) 40 mg PO DAILY [facility] Last Admin: 08/24/17 10:39 Dose: 40 mg Rifaximin (Xifaxan -) 550 mg PO BID [facility] Last Admin: 08/24/17 21:54 Dose: 550 mg Rivaroxaban (Xarelto -) 20 mg PO DAILY@1800 [facility] Last Admin: 08/24/17 17:53 Dose: 20 mg Sertraline HCl (Zoloft -) 50 mg PO DAILY [facility] Last Admin: 08/24/17 10:40 Dose: 50 mg - Objective Vital Signs: Vital Signs Temperature 97.9 F 08/24/17 22:00 Pulse Rate 107 H 08/24/17 22:00 Respiratory Rate 20 08/24/17 22:00 Blood Pressure 139/79 08/24/17 22:00 O2 Sat by Pulse Oximetry (%) 87 L 08/24/17 21:00 Constitutional: Yes: Well Nourished, No Distress, Calm Cardiovascular: Yes: Regular Rate and Rhythm Respiratory: Yes: Wheezes (diffuse) Gastrointestinal: Yes: Normal Bowel Sounds, Soft Musculoskeletal: Yes: Muscle Weakness Extremities: Yes: WNL Edema: No Peripheral Pulses WNL: Yes Neurological: Yes: Alert, Pre-Existing Deficit Psychiatric: Yes: Alert Labs: CBC, BMP 08/23/17 07:45 08/25/17 07:00 INR, PTT INR 1.10 (0.82-1.09) 08/19/17 17:35 Problem List - Problems (1) Acute kidney injury Assessment/Plan: improved -outpatient labs Code(s): N17.9 - ACUTE KIDNEY FAILURE, UNSPECIFIED (2) Cellulitis Assessment/Plan: -po abx Code(s): L03.90 - CELLULITIS, UNSPECIFIED Qualifiers: Site of cellulitis: extremity Site of cellulitis of extremity: lower extremity Laterality: left Qualified Code(s): L03.116 - Cellulitis of left lower limb (3) Alkaline phosphatase elevation Assessment/Plan: trending down o/p labs Code(s): R74.8 - ABNORMAL LEVELS OF OTHER SERUM ENZYMES (4) Atrial fibrillation Assessment/Plan: -on Xarelto Code(s): I48.91 - UNSPECIFIED ATRIAL FIBRILLATION Qualifiers: Atrial fibrillation type: chronic Qualified Code(s): I48.2 - Chronic atrial fibrillation (5) Hypothyroidism Assessment/Plan: levothyroxine adjusted -repeat thyroid profile in 4 weeks o/p Code(s): E03.9 - HYPOTHYROIDISM, UNSPECIFIED (6) Wheezing on auscultation Assessment/Plan: -repeat CXR stat -Duoneb Q4H -Incentive spirometer -Nursing encouraged to get pt out of bed to chair with assistance -SpO2 87% on room air at rest, will need Home O2 if no acute pathology on CXR Code(s): R06.2 - WHEEZING Assessment/Plan see problem list
[2017-08-25] MEDS ORDERED: PT OWN MED DRAWER 7, Y5N ONE (10:21)
[2017-08-25] MEDS: ASPIRIN COATED 81 MG TABLET.EC PO SCH (10:23)
[2017-08-25] MEDS: MUPIROCIN CA 2% TOPICAL CREAM 15 GM TUBE TP SCH ×2 (10:23→22:21)
[2017-08-25] MEDS: FEBUXOSTAT 40 MG TAB PO SCH (10:24)
[2017-08-25] MEDS: METOPROLOL TARTRATE 50 MG TABLET (FP) PO SCH ×2 (10:24→22:21)
[2017-08-25] MEDS: PANTOPRAZOLE 40 MG TABLET (FP) PO SCH (10:24)
[2017-08-25] MEDS: MULTIVITAMINS (DAILY MVI) TABLET (FP) PO SCH (10:24)
[2017-08-25] MEDS: SERTRALINE HCL 50 MG TABLET (FP) PO SCH (10:25)
[2017-08-25] MEDS: RIFAXIMIN 550 MG TABLET (UD) PO SCH ×2 (10:25→22:21)
[2017-08-25] MEDS: DOXYCYCLINE HYCLATE 100 MG CAPSULE PO SCH ×2 (10:25→17:40)
[2017-08-25 10:29] LABS: HEMATOCRIT 32.5 % (32.4-45.2); HEMOGLOBIN 11.2 GM/dL (10.7-15.3); MCH 33.7 pg (25.7-33.7); RDW 13.6 % (11.6-15.6)
[2017-08-25 10:34] LABS: BASO % 1.2 % (0-2.0); LYMPH % 16.7 % (8-40); MCHC 34.5 g/dl (32.0-36.0); MEAN CELL VOLUME 97.6 fl (80-96); MEAN PLT VOLUME 10.6 fl (7.5-11.1); MONO % 14.2 % (3.8-10.2); NEUT % 62.9 % (42.8-82.8); PLATELET COUNT 162 K/MM3 (134-434); RBC 3.34 M/mm3 (3.60-5.2); WHITE BLOOD COUNT 9.2 K/mm3 (4.0-10.0)
[2017-08-25] MEDS: FERROUS SO4 325 MG TABLET (FP) PO SCH (14:17)
--- NOTE | 2017-08-25 14:20 | PN ---
Progress Note, Physician Chief Complaint: The patient seen in her room. Seems comfortable. Maintains good urine output. Dressings over the leg in place. - Current Medication List Current Medications: Active Medications Acetaminophen (Tylenol -) 650 mg PO Q4H PRN PRN Reason: PAIN Last Admin: 08/20/17 17:58 Dose: 650 mg Albuterol/Ipratropium (Duoneb -) 1 amp NEB Q4H PRN PRN Reason: SHORTNESS OF BREATH Last Admin: 08/25/17 08:30 Dose: 1 amp Aspirin (Ecotrin -) 81 mg PO DAILY [facility] Last Admin: 08/25/17 10:23 Dose: 81 mg Docusate Sodium (Colace -) 100 mg PO TID PRN PRN Reason: CONSTIPATION Doxycycline Hyclate (Vibramycin -) 100 mg PO BID@1000,1800 [facility] Last Admin: 08/25/17 10:25 Dose: 100 mg Febuxostat (Uloric -) 40 mg PO DAILY [facility] Last Admin: 08/25/17 10:24 Dose: 40 mg Ferrous Sulfate (Feosol -) 325 mg PO DAILY@1400 [facility] Last Admin: 08/25/17 14:17 Dose: 325 mg Levothyroxine Sodium (Synthroid -) 37.5 mcg PO DAILY@0700 [facility] Last Admin: 08/25/17 06:21 Dose: 37.5 mcg Metoprolol Tartrate (Lopressor -) 100 mg PO BID [facility] Last Admin: 08/25/17 10:24 Dose: 100 mg Multivitamins/Minerals/Vitamin C (Tab-A-Vit -) 1 tab PO DAILY [facility] Last Admin: 08/25/17 10:24 Dose: 1 tab Mupirocin (Bactroban 2% Cream -) 1 applic TP BID [facility] Last Admin: 08/25/17 10:23 Dose: 1 applic Pantoprazole Sodium (Protonix -) 40 mg PO DAILY [facility] Last Admin: 08/25/17 10:24 Dose: 40 mg Rifaximin (Xifaxan -) 550 mg PO BID [facility] Last Admin: 08/25/17 10:25 Dose: 550 mg Rivaroxaban (Xarelto -) 20 mg PO DAILY@1800 [facility] Last Admin: 08/24/17 17:53 Dose: 20 mg Sertraline HCl (Zoloft -) 50 mg PO DAILY [facility] Last Admin: 08/25/17 10:25 Dose: 50 mg - Objective Vital Signs: Vital Signs Temperature 98.8 F 08/25/17 10:00 Pulse Rate 100 H 08/25/17 10:00 Respiratory Rate 20 08/25/17 10:00 Blood Pressure 150/84 08/25/17 10:00 O2 Sat by Pulse Oximetry (%) 87 L 08/24/17 21:00 Constitutional: Yes: No Distress, Calm Eyes: Yes: Conjunctiva Clear HENT: Yes: Normocephalic Cardiovascular: Yes: S1, S2 Respiratory: Yes: CTA Bilaterally, Diminished Gastrointestinal: Yes: Normal Bowel Sounds Extremities: Yes: Erythema Neurological: Yes: Alert, Oriented Labs: CBC, BMP 08/25/17 07:00 08/25/17 07:00 INR, PTT INR 1.10 (0.82-1.09) 08/19/17 17:35 Problem List - Problems (1) Acute kidney injury Code(s): N17.9 - ACUTE KIDNEY FAILURE, UNSPECIFIED (2) CKD (chronic kidney disease) Code(s): N18.9 - CHRONIC KIDNEY DISEASE, UNSPECIFIED (3) Cellulitis Code(s): L03.90 - CELLULITIS, UNSPECIFIED Qualifiers: Site of cellulitis: extremity Site of cellulitis of extremity: lower extremity Laterality: left Qualified Code(s): L03.116 - Cellulitis of left lower limb (4) Infected ulcer of skin Code(s): L98.499 - NON-PRESSURE CHRONIC ULCER OF SKIN OF SITES W UNSP SEVERITY; L08.9 - LOCAL INFECTION OF THE SKIN AND SUBCUTANEOUS TISSUE, UNSP (5) Atrial fibrillation Code(s): I48.91 - UNSPECIFIED ATRIAL FIBRILLATION Qualifiers: Atrial fibrillation type: chronic Qualified Code(s): I48.2 - Chronic atrial fibrillation (6) Hypertension Code(s): I10 - ESSENTIAL (PRIMARY) HYPERTENSION Assessment/Plan 81 year old woman with PMhx of Hypertension , Hypothyrodism, Asthma who presented with LE cellulitis that was refractory to outpatient Abx and found to have BUN/Cr of 41/1.6. The Renal functions have improved towards her baseline and is staying stable at Serum Cr 1.3mg. Acute Renal Injury likely related to intravascular volume depletion in setting of acute infection LE Cellulitis Hypertension Metabolic acidosis Renal function is improved and stable IV Antibiotics to continue. Will monitor the renal functions closely with you. Thank you. Kamini De Leon MD
[2017-08-25] MEDS: RIVAROXABAN 20 MG TABLET PO SCH (17:40)
[2017-08-26] MEDS: LEVOTHYROXINE NA 25 MCG TABLET (FP) PO SCH (06:57)
[2017-08-26 07:19] LABS: BASO % 1.4 % (0-2.0); EOS % 5.5 % (0-4.5); LYMPH % 15.6 % (8-40); MCH 33.3 pg (25.7-33.7); MCHC 34.3 g/dl (32.0-36.0); MEAN CELL VOLUME 97.2 fl (80-96); MEAN PLT VOLUME 9.8 fl (7.5-11.1); MONO % 13.4 % (3.8-10.2); NEUT % 64.1 % (42.8-82.8); PLATELET COUNT 185 K/MM3 (134-434); RDW 13.6 % (11.6-15.6); WHITE BLOOD COUNT 9.3 K/mm3 (4.0-10.0)
[2017-08-26 07:57] LABS: CHLORIDE 105 mmol/L (98-107); POTASSIUM 4.6 mmol/L (3.5-5.1); SODIUM 135 mmol/L (136-145)
[2017-08-26 08:05] LABS: ALBUMIN 3.2 g/dl (3.4-5.0); ALK PHOS 280 U/L (45-117); ANION GAP 10 (8-16); BILIRUBIN,TOTAL 0.9 mg/dL (0.2-1.0); BLOOD UREA NITROGEN 27 mg/dL (7-18); CALCIUM 8.9 mg/dL (8.5-10.1); CO2 20 mmol/L (21-32); CREATININE 1.4 mg/dL (0.55-1.02); GLUCOSE,RANDOM 119 mg/dL (74-106); SGOT/AST 30 U/L (15-37); SGPT/ALT 27 U/L (12-78); TOT PROT 6.6 g/dl (6.4-8.2)
--- NOTE | 2017-08-26 08:43 | DS ---
Physical Examination Vital Signs: Vital Signs Temperature 97.6 F 08/26/17 06:58 Pulse Rate 81 08/26/17 06:58 Respiratory Rate 18 08/26/17 06:58 Blood Pressure 143/116 08/26/17 06:58 O2 Sat by Pulse Oximetry (%) 94 L 08/25/17 21:00 Cardiovascular: Yes: S1, S2 Respiratory: Yes: Regular, CTA Bilaterally Gastrointestinal: Yes: Normal Bowel Sounds, Soft Labs: CBC, BMP 08/26/17 05:35 08/26/17 05:35 Discharge Summary Reason For Visit: ACUTE KIDNEY INJURY, PRESSURE ULCER, CELLULITIS Current Active Problems Abdominal pain (Acute) Acute kidney injury (Acute) CKD (chronic kidney disease) (Acute) Cellulitis (Acute) Decubitus ulcer (Acute) Infected ulcer of skin (Acute) Leg ulcer, left (Acute) Wheezing on auscultation (Acute) Hospital Course: 81 year old female with a history of dementia, CHF, hypothyroidism, afib, asthma presents to the hospital complaining of pain in her left leg and the inability to walk for 3 days. Patient is a very poor historian and a reliable history is unable to be taken without anyone present at bedside. As per ED note , patient was brought to ED by Dr. Juárez's request for wound on her left leg that was worsening and failed outpatient treatment with cefdinir. Patient complains of vague, mild abdominal pain in the left lower and right lower quadrants. Denies fevers, chills, chest pain, SOB, nausea, vomiting, diarrhea. ER course was notable for: (1) WBC 6.1 (2) afebrile (3) No DVT PAST MEDICAL HISTORY: dementia, CHF, hypothyroidism, afib, asthma PAST SURGICAL HISTORY: unknown Social History: Smoking: none Alcohol: none Drugs: none patient admitted for LE cellultis in iv vancomycin now po doxycycline,doppler of leg done no DVT noted hypothyroid tsh elevated increase synthroid dose FU with PMD as outpatient in 4 weeks patient got ivf in hospital,MRSA in wound Microbiology 08/20/17 13:15 Ulcer Gram Stain - Final 08/20/17 13:15 Ulcer Wound Culture - Preliminary Mr S Aureus Alpha Hemolytic Streptococcus iv vancomycin to po doxycycline for 5 days UA is negative no need to treat with abx - Problems (1) Acute kidney injury Assessment/Plan: improved -outpatient labs Code(s): N17.9 - ACUTE KIDNEY FAILURE, UNSPECIFIED (2) Cellulitis Assessment/Plan: -po abx Code(s): L03.90 - CELLULITIS, UNSPECIFIED Qualifiers: Site of cellulitis: extremity Site of cellulitis of extremity: lower extremity Laterality: left Qualified Code(s): L03.116 - Cellulitis of left lower limb (3) Alkaline phosphatase elevation Assessment/Plan: trending down o/p labs Code(s): R74.8 - ABNORMAL LEVELS OF OTHER SERUM ENZYMES (4) Atrial fibrillation Assessment/Plan: -on Xarelto Code(s): I48.91 - UNSPECIFIED ATRIAL FIBRILLATION Qualifiers: Atrial fibrillation type: chronic Qualified Code(s): I48.2 - Chronic atrial fibrillation (5) Hypothyroidism Assessment/Plan: levothyroxine adjusted -repeat thyroid profile in 4 weeks o/p Code(s): E03.9 - HYPOTHYROIDISM, UNSPECIFIED (6) Wheezing on auscultation Assessment/Plan: -resolved -repeat CXR --progressive changes--repeat -Duoneb Q4H -Incentive spirometer -Nursing encouraged to get pt out of bed to chair with assistance -SpO2 87% on room air at rest, will need Home O2 Code(s): R06.2 - WHEEZING Condition: Guarded - Instructions Diet, Activity, Other Instructions: follow up PMD in 3 weeks to check TSH doxycycline for 5 days bactroban ointment on the left leg wound twice a day Referrals: Hector Juárez MD [Primary Care Provider] - Disposition: VNS/HOME HEALTH CARE - Home Medications Comprehensive Discharge Medication List: Ambulatory Orders Aspirin [Aspirin EC] 81 mg PO DAILY 03/08/16 Dexlansoprazole [Dexilant] 60 mg PO DAILY 03/08/16 Febuxostat [Uloric -] 40 mg PO DAILY 03/08/16 Metoprolol Tartrate [Lopressor] 100 mg PO BID 03/08/16 Multivitamins [Multivit ([facility] Formulary)] 1 tab PO DAILY 03/08/16 Rifaximin [Xifaxan -] 550 mg PO BID 03/08/16 Sertraline HCl [Zoloft -] 50 mg PO DAILY 03/08/16 Doxycycline Hyclate [Vibramycin -] 100 mg PO BID@1000,1800 #10 tab [facility]D 2 Levothyroxine [Synthroid -] 37.5 mcg PO DAILY@0700 #30 tablet [facility] 1 08/23/17 Mupirocin Cream [Bactroban 2% Cream -] 1 applic TP BID #1 tube [facility] 2 08/23/17 Rivaroxaban [Xarelto -] 20 mg PO DAILY@1800 #0 tablet 08/23/17
[2017-08-26] MEDS: METOPROLOL TARTRATE 50 MG TABLET (FP) PO SCH ×2 (10:17→22:18)
[2017-08-26] MEDS: RIFAXIMIN 550 MG TABLET (UD) PO SCH ×2 (10:18→22:18)
[2017-08-26] MEDS: PANTOPRAZOLE 40 MG TABLET (FP) PO SCH (10:18)
[2017-08-26] MEDS: ASPIRIN COATED 81 MG TABLET.EC PO SCH (10:18)
[2017-08-26] MEDS: SERTRALINE HCL 50 MG TABLET (FP) PO SCH (10:18)
[2017-08-26] MEDS: DOXYCYCLINE HYCLATE 100 MG CAPSULE PO SCH ×2 (10:18→18:18)
[2017-08-26] MEDS: MULTIVITAMINS (DAILY MVI) TABLET (FP) PO SCH (10:18)
[2017-08-26] MEDS: MUPIROCIN CA 2% TOPICAL CREAM 15 GM TUBE TP SCH ×2 (10:18→22:20)
[2017-08-26] MEDS: FEBUXOSTAT 40 MG TAB PO SCH (10:20)
--- NOTE | 2017-08-26 13:33 | PN ---
Progress Note (short form) - Note Progress Note: PULMONARY CONSULTATION DICTATED 08/26/17 IMP ACUTE RESPIRATORY DISTRESS CHF H/O ASTHMA AFIB VALVULAR HD CARIN CELLULITIS HTN DEMENTIA PLAN LASIX O2 INHALED BRONCHODILATORS BNP F/U CHEST X-RAY STRICT I+OS DR CANDELARIO Problem List - Problems (1) Respiratory distress Code(s): R06.03 - ACUTE RESPIRATORY DISTRESS (2) Acute kidney injury Code(s): N17.9 - ACUTE KIDNEY FAILURE, UNSPECIFIED (3) Wheezing on auscultation Code(s): R06.2 - WHEEZING (4) Edema leg Code(s): R60.0 - LOCALIZED EDEMA (5) Hypertension Code(s): I10 - ESSENTIAL (PRIMARY) HYPERTENSION (6) Asthma Code(s): J45.909 - UNSPECIFIED ASTHMA, UNCOMPLICATED (7) Dyspnea Code(s): R06.00 - DYSPNEA, UNSPECIFIED (8) CHF (congestive heart failure) Code(s): I50.9 - HEART FAILURE, UNSPECIFIED (9) Afib Code(s): I48.91 - UNSPECIFIED ATRIAL FIBRILLATION
[2017-08-26] MEDS: FERROUS SO4 325 MG TABLET (FP) PO SCH (13:59)
--- NOTE | 2017-08-26 14:01 | CONS ---
DATE OF CONSULTATION: 08/26/2017 REFERRING PHYSICIAN: Kaela Moore MD HISTORY: The patient is an 81-year-old white female with a past medical history of dementia, hypothyroidism, asthma, hypertension admitted to [facility] on August 19 secondary to left lower extremity cellulitis that was refractory to outpatient antibiotics. On admission, the patient was noted to have elevated BUN and creatinine. On admission, she was started on broad-spectrum antibiotics as per Infectious Disease. She was also started on IV fluids. The patient's hospitalization was significant for her cellulitis was noted to improved, but yesterday she started developing increasing shortness of breath as well as wheezing. She had a chest x-ray performed, which revealed evidence of increasing pulmonary vascular congestion. The patient was started on inhaled bronchodilators. The patient denies any history of tobacco use. There is no history of occupational exposures to chemicals or fumes. PAST MEDICAL HISTORY: Again includes hypertension, hypothyroidism, asthma, atrial fibrillation. REVIEW OF SYSTEMS: Unable to obtain. The patient does have a history of dementia. CURRENT MEDICATIONS: Include Tylenol, Vibramycin, , Xarelto, Zoloft, Uloric, DuoNeb, Colace, Feosol, Ecotrin, Protonix, and Synthroid. PHYSICAL EXAMINATION: General: The patient is an elderly white female well developed, well nourished, awake, alert and dyspneic, mildly tachypneic on nasal O2. Vital Signs: She is afebrile. Blood pressure 143/116, respiratory rate 20, O2 saturation 96% on 2 L. HEENT: Normocephalic and atraumatic. Neck: Supple. Heart: Irregular with S1, S2. Chest: Acute bibasilar crackles. Abdomen: Soft. Bowel sounds positive. Extremities: Bilateral lower extremity edema. LABORATORIES: WBC 9.3, hemoglobin 11, hematocrit 32, platelet count 185,000. BUN 27, creatinine 1.4, INR 1. Chest x-ray revealed increased pulmonary vascular congestion, bilateral effusions. IMPRESSION: 1. Respiratory distress likely secondary to mild decompensated congestive heart failure. 2. History of asthma. 3. Atrial fibrillation. 4. Left lower extremity cellulitis. 5. Hypertension. 6. Acute kidney injury. PLAN: Lasix. Echocardiogram. Supplemental O2. Obtain follow up chest x-rays. Continue Xarelto for atrial fibrillation. Antibiotics as per Infectious Disease. Strict inputs and outputs. ALYSSIA CANDELARIO M.D. ADOLPH/[id number]
[2017-08-26 14:12] LABS: N-TERMINAL BNP 24098.83 pg/ml (5-450)
[2017-08-26] MEDS: RIVAROXABAN 20 MG TABLET PO SCH (18:18)
[2017-08-26] MEDS: ALBUTEROL SO4 2.5/IPRATROPIUM 0.5 INH SOL 3 ML VIAL.NEB. NEB PRN (20:20)
[2017-08-27] MEDS ORDERED: PT OWN MED DRAWER 7, Y5N ONE (05:53)
[2017-08-27] MEDS: LEVOTHYROXINE NA 25 MCG TABLET (FP) PO SCH (06:26)
[2017-08-27] MEDS: ALBUTEROL SO4 2.5/IPRATROPIUM 0.5 INH SOL 3 ML VIAL.NEB. NEB PRN ×2 (06:47→20:20)
--- NOTE | 2017-08-27 08:54 | PN ---
Progress Note, Physician History of Present Illness: IN BED WITH OXYGEN -CXR NOTED - Current Medication List Current Medications: Active Medications Acetaminophen (Tylenol -) 650 mg PO Q4H PRN PRN Reason: PAIN Last Admin: 08/20/17 17:58 Dose: 650 mg Albuterol/Ipratropium (Duoneb -) 1 amp NEB Q4H PRN PRN Reason: SHORTNESS OF BREATH Last Admin: 08/27/17 06:47 Dose: 1 amp Aspirin (Ecotrin -) 81 mg PO DAILY [facility] Last Admin: 08/26/17 10:18 Dose: 81 mg Docusate Sodium (Colace -) 100 mg PO TID PRN PRN Reason: CONSTIPATION Doxycycline Hyclate (Vibramycin -) 100 mg PO BID@1000,1800 [facility] Last Admin: 08/26/17 18:18 Dose: 100 mg Febuxostat (Uloric -) 40 mg PO DAILY [facility] Last Admin: 08/26/17 10:20 Dose: 40 mg Ferrous Sulfate (Feosol -) 325 mg PO DAILY@1400 [facility] Last Admin: 08/26/17 13:59 Dose: 325 mg Furosemide (Lasix Injection -) 40 mg IVPUSH DAILY [facility] Levothyroxine Sodium (Synthroid -) 37.5 mcg PO DAILY@0700 [facility] Last Admin: 08/27/17 06:26 Dose: 37.5 mcg Metoprolol Tartrate (Lopressor -) 100 mg PO BID [facility] Last Admin: 08/26/17 22:18 Dose: 100 mg Multivitamins/Minerals/Vitamin C (Tab-A-Vit -) 1 tab PO DAILY [facility] Last Admin: 08/26/17 10:18 Dose: 1 tab Mupirocin (Bactroban 2% Cream -) 1 applic TP BID [facility] Last Admin: 08/26/17 22:20 Dose: 1 applic Pantoprazole Sodium (Protonix -) 40 mg PO DAILY [facility] Last Admin: 08/26/17 10:18 Dose: 40 mg Rifaximin (Xifaxan -) 550 mg PO BID [facility] Last Admin: 08/26/17 22:18 Dose: 550 mg Rivaroxaban (Xarelto -) 20 mg PO DAILY@1800 [facility] Last Admin: 08/26/17 18:18 Dose: 20 mg Sertraline HCl (Zoloft -) 50 mg PO DAILY [facility] Last Admin: 08/26/17 10:18 Dose: 50 mg - Objective Vital Signs: Vital Signs Temperature 98.6 F 08/27/17 06:57 Pulse Rate 83 08/27/17 06:57 Respiratory Rate 20 08/27/17 06:57 Blood Pressure 136/86 08/27/17 06:57 O2 Sat by Pulse Oximetry (%) 95 08/26/17 20:34 Cardiovascular: Yes: S1, S2 Respiratory: Yes: On Nasal O2, Rales Gastrointestinal: Yes: Normal Bowel Sounds Labs: CBC, BMP 08/26/17 05:35 08/26/17 05:35 INR, PTT INR 1.10 (0.82-1.09) 08/19/17 17:35 Assessment/Plan - Problems (1) Cellulitis Assessment/Plan: ID on board OF iv zosyn -on doxy doppler negative for dvt no fracture vascular consult elevated ESR Code(s): L03.90 - CELLULITIS, UNSPECIFIED Qualifiers: Site of cellulitis: extremity Site of cellulitis of extremity: lower extremity Laterality: left Qualified Code(s): L03.116 - Cellulitis of left lower limb (2) Leg ulcer, left Assessment/Plan: wound culture sent vascular eval ID on board' isolation Code(s): L97.929 - NON-PRS CHRONIC ULC UNSP PRT OF L LOW LEG W UNSP SEVERITY Qualifiers: Non-pressure ulcer stage: unspecified non-pressure ulcer stage Qualified Code(s): L97.929 - Non-pressure chronic ulcer of unspecified part of left lower leg with unspecified severity (3) Alkaline phosphatase elevation Assessment/Plan: CT scan noted nodular liver possible cirrhosis on rifaximin Code(s): R74.8 - ABNORMAL LEVELS OF OTHER SERUM ENZYMES (4) Atrial fibrillation Assessment/Plan: metoprolol and aspirin start xarelto ekg Code(s): I48.91 - UNSPECIFIED ATRIAL FIBRILLATION (5) Hypothyroidism Assessment/Plan: synthroid tsh check Code(s): E03.9 - HYPOTHYROIDISM, UNSPECIFIED (6) CKD (chronic kidney disease) Assessment/Plan: renal eval will monitor bun/cr Code(s): N18.9 - CHRONIC KIDNEY DISEASE, UNSPECIFIED (7) Edema Assessment/Plan: vascular consult--r/o dvt ac--xarelto echo (8) CHF-Acute on chronic diastolic hf LASIX bnp Laboratory Tests 08/26/17 05:35 B-Natriuretic Peptide 30984.83 H FOLLOW LABS
[2017-08-27] MEDS: FUROSEMIDE 40 MG/4 ML INJECTABLE VIAL IVPUSH SCH (09:23)
[2017-08-27] MEDS: MULTIVITAMINS (DAILY MVI) TABLET (FP) PO SCH (09:23)
[2017-08-27] MEDS: DOXYCYCLINE HYCLATE 100 MG CAPSULE PO SCH ×2 (09:23→18:07)
[2017-08-27] MEDS: SERTRALINE HCL 50 MG TABLET (FP) PO SCH (09:23)
[2017-08-27] MEDS: PANTOPRAZOLE 40 MG TABLET (FP) PO SCH (09:23)
[2017-08-27] MEDS: ASPIRIN COATED 81 MG TABLET.EC PO SCH (09:24)
[2017-08-27] MEDS: METOPROLOL TARTRATE 50 MG TABLET (FP) PO SCH ×2 (09:24→22:00)
[2017-08-27] MEDS: MUPIROCIN CA 2% TOPICAL CREAM 15 GM TUBE TP SCH ×2 (09:24→22:00)
[2017-08-27] MEDS: FEBUXOSTAT 40 MG TAB PO SCH (09:32)
--- NOTE | 2017-08-27 10:23 | PN ---
Progress Note (short form) - Note Progress Note: OOB to wheelchair. Some dry cough. No CP. Breathing feels about the same. Intake & Output 08/24/17 08/25/17 08/26/17 08/27/17 23:59 23:59 23:59 23:59 Intake Total 440 660 580 Balance 440 660 580 Weight 137 lb 6.4 oz 175 lb 177 lb 1.6 oz 177 lb 4.8 oz Last Vital Signs Temp Pulse Resp BP Pulse Ox 98.6 F 83 20 136/86 95 08/27/17 06:57 08/27/17 06:57 08/27/17 06:57 08/27/17 06:57 08/26/17 20:34 Active Medications Acetaminophen (Tylenol -) 650 mg PO Q4H PRN PRN Reason: PAIN Last Admin: 08/20/17 17:58 Dose: 650 mg Albuterol/Ipratropium (Duoneb -) 1 amp NEB Q4H PRN PRN Reason: SHORTNESS OF BREATH Last Admin: 08/27/17 06:47 Dose: 1 amp Aspirin (Ecotrin -) 81 mg PO DAILY [facility] Last Admin: 08/27/17 09:24 Dose: 81 mg Docusate Sodium (Colace -) 100 mg PO TID PRN PRN Reason: CONSTIPATION Doxycycline Hyclate (Vibramycin -) 100 mg PO BID@1000,1800 [facility] Last Admin: 08/27/17 09:23 Dose: 100 mg Febuxostat (Uloric -) 40 mg PO DAILY [facility] Last Admin: 08/27/17 09:32 Dose: 40 mg Ferrous Sulfate (Feosol -) 325 mg PO DAILY@1400 [facility] Last Admin: 08/26/17 13:59 Dose: 325 mg Furosemide (Lasix Injection -) 40 mg IVPUSH DAILY [facility] Last Admin: 08/27/17 09:23 Dose: 40 mg Levothyroxine Sodium (Synthroid -) 37.5 mcg PO DAILY@0700 [facility] Last Admin: 08/27/17 06:26 Dose: 37.5 mcg Metoprolol Tartrate (Lopressor -) 100 mg PO BID [facility] Last Admin: 08/27/17 09:24 Dose: 100 mg Multivitamins/Minerals/Vitamin C (Tab-A-Vit -) 1 tab PO DAILY [facility] Last Admin: 05/15/18 09:23 Dose: 1 tab Mupirocin (Bactroban 2% Cream -) 1 applic TP BID [facility] Last Admin: 08/27/17 09:24 Dose: 1 applic Pantoprazole Sodium (Protonix -) 40 mg PO DAILY [facility] Last Admin: 08/27/17 09:23 Dose: 40 mg Rivaroxaban (Xarelto -) 20 mg PO DAILY@1800 [facility] Last Admin: 08/26/17 18:18 Dose: 20 mg Sertraline HCl (Zoloft -) 50 mg PO DAILY [facility] Last Admin: 08/27/17 09:23 Dose: 50 mg NAD awake and alert No JVD RRR, No M/R Few basilar rhonchi Soft, NT/ND, (+) BS No LE edema, no cyanosis or clubbing + erythema L> R Laboratory Results - last 24 hr 08/26/17 08/26/17 08/26/17 05:35 05:35 18:00 Sodium 135 L Potassium 4.6 Chloride 105 Carbon Dioxide 20 L Anion Gap 10 BUN 27 H Creatinine 1.4 H Creat Clearance w eGFR 36.00 Random Glucose 119 H Calcium 8.9 Total Bilirubin 0.9 AST 30 ALT 27 Alkaline Phosphatase 280 H B-Natriuretic Peptide 33577.83 H Cancelled Total Protein 6.6 Albumin 3.2 L U Random Total Protein 15 H Ur Random Sodium Urine Creatinine 08/26/17 08/26/17 18:00 18:00 Sodium Potassium Chloride Carbon Dioxide Anion Gap BUN Creatinine Creat Clearance w eGFR Random Glucose Calcium Total Bilirubin AST ALT Alkaline Phosphatase B-Natriuretic Peptide Total Protein Albumin U Random Total Protein Ur Random Sodium 90 Urine Creatinine 35.2 Problem List - Problems (1) Respiratory distress Code(s): R06.03 - ACUTE RESPIRATORY DISTRESS (2) Acute kidney injury Code(s): N17.9 - ACUTE KIDNEY FAILURE, UNSPECIFIED (3) Wheezing on auscultation Code(s): R06.2 - WHEEZING (4) Edema leg Code(s): R60.0 - LOCALIZED EDEMA (5) Hypertension Code(s): I10 - ESSENTIAL (PRIMARY) HYPERTENSION (6) Asthma Code(s): J45.909 - UNSPECIFIED ASTHMA, UNCOMPLICATED (7) Dyspnea Code(s): R06.00 - DYSPNEA, UNSPECIFIED (8) CHF (congestive heart failure) Code(s): I50.9 - HEART FAILURE, UNSPECIFIED (9) Afib Code(s): I48.91 - UNSPECIFIED ATRIAL FIBRILLATION IMP ACUTE RESPIRATORY DISTRESS CHF H/O ASTHMA AFIB VALVULAR HD CARIN CELLULITIS HTN DEMENTIA PLAN LASIX IV Daily O2 INHALED BRONCHODILATORS F/U CHEST X-RAY IN AM Follow I+O Dr Oliver
[2017-08-27 11:43] VITALS: BMI 27.7
[2017-08-27] MEDS: FERROUS SO4 325 MG TABLET (FP) PO SCH (14:07)
[2017-08-27] MEDS: RIVAROXABAN 20 MG TABLET PO SCH (18:07)
--- NOTE | 2017-08-27 19:04 | PN ---
Progress Note (short form) - Note Progress Note: Renal follow up for CARIN Pt seen and examined at the bedside chart reviewed, pt noted to have sob and was given IV Lasix with CXR findings of worsening effusions sitting in bed no acute complaints reports that her SOB is improved, has some cough no chest pain, fever, chills c Vital Signs Temperature 97.4 F L 08/27/17 14:43 Pulse Rate 90 08/27/17 16:25 Respiratory Rate 20 08/27/17 14:43 Blood Pressure 141/91 08/27/17 14:43 O2 Sat by Pulse Oximetry (%) 88 L 08/27/17 16:25 Intake & Output 08/24/17 08/25/17 08/26/17 08/27/17 23:59 23:59 23:59 23:59 Intake Total 440 660 580 350 Balance 440 660 580 350 Weight 62.324 kg 79.379 kg 80.331 kg 80.422 kg NAD awake and alert MMM, No JVD RRR, No M/R CTA, no wheeze or rales soft NT/ND trace edema CBC, BMP 08/26/17 05:35 08/26/17 05:35 Current Medications Acetaminophen (Tylenol -) 650 mg PO Q4H PRN PRN Reason: PAIN Last Admin: 08/20/17 17:58 Dose: 650 mg Albuterol/Ipratropium (Duoneb -) 1 amp NEB Q4H PRN PRN Reason: SHORTNESS OF BREATH Last Admin: 08/27/17 06:47 Dose: 1 amp Aspirin (Ecotrin -) [address] [facility] Last Admin: 08/27/17 09:24 Dose: 81 mg Bacitracin (Bacitracin -) [address] [facility] Docusate Sodium (Colace -) 100 mg PO TID PRN PRN Reason: CONSTIPATION Doxycycline Hyclate (Vibramycin -) 100 mg PO BID@1000,1800 [facility] Last Admin: 08/27/17 18:07 Dose: 100 mg Febuxostat (Uloric -) [address] [facility] Last Admin: 08/27/17 09:32 Dose: 40 mg Ferrous Sulfate (Feosol -) 325 mg PO DAILY@1400 [facility] Last Admin: 08/27/17 14:07 Dose: 325 mg Furosemide (Lasix Injection -) [address] [facility] Last Admin: 08/27/17 09:23 Dose: 40 mg Levothyroxine Sodium (Synthroid -) 37.5 mcg PO DAILY@0700 [facility] Last Admin: 08/27/17 06:26 Dose: 37.5 mcg Metoprolol Tartrate (Lopressor -) [address] [facility] Last Admin: 08/27/17 09:24 Dose: 100 mg Multivitamins/Minerals/Vitamin C (Tab-A-Vit -) [address] [facility] Last Admin: 08/27/17 09:23 Dose: 1 tab Mupirocin (Bactroban 2% Cream -) [address] [facility] Last Admin: 08/27/17 09:24 Dose: 1 applic Pantoprazole Sodium (Protonix -) [address] [facility] Last Admin: 08/27/17 09:23 Dose: 40 mg Rivaroxaban (Xarelto -) 20 mg PO DAILY@1800 [facility] Last Admin: 08/27/17 18:07 Dose: 20 mg Sertraline HCl (Zoloft -) [address] [facility] Last Admin: 08/27/17 09:23 Dose: 50 mg 81 year old woman with PMhx of Hypertension (10 years), Hypothyrodism, Asthma who presented with LE cellulitis that was refractory to outpatient Abx and found to have BUN/Cr of 41/1.6. #Acute Renal Injury with underlying CKD (baseline Cr 1.3) #LE Cellulitis #Hypertension #Metabolic acidosis #Pleural effusions/Volume overload Renal function impoved to baseline agree with IV Lasix for mangement of volume overload/pleural effusions trend BUN/Cr and electrolytes while on IV diuretics start sodium bicarb 650mg Daily can restart ACEi once off IV Lasix continue Abx as per ID Kev Clark DO [id number]
[2017-08-27] MEDS: BACITRACIN 15 GM TUBE TOPICAL OINTMENT TP SCH (22:00)
[2017-08-28] MEDS: LEVOTHYROXINE NA 25 MCG TABLET (FP) PO SCH (06:25)
[2017-08-28] MEDS: ALBUTEROL SO4 2.5/IPRATROPIUM 0.5 INH SOL 3 ML VIAL.NEB. NEB PRN (07:25)
[2017-08-28 08:04] LABS: BASO % 1.3 % (0-2.0); EOS % 7.9 % (0-4.5); HEMATOCRIT 32.4 % (32.4-45.2); LYMPH % 15.2 % (8-40); MCH 33.1 pg (25.7-33.7); MEAN CELL VOLUME 97.3 fl (80-96); MEAN PLT VOLUME 9.6 fl (7.5-11.1); MONO % 13.3 % (3.8-10.2); NEUT % 62.3 % (42.8-82.8); PLATELET COUNT 206 K/MM3 (134-434); RBC 3.32 M/mm3 (3.60-5.2); WHITE BLOOD COUNT 8.8 K/mm3 (4.0-10.0)
[2017-08-28] MEDS ORDERED: SILVER NITRATE 75% APPLIC STCK 1 PKT EACH TP ONE (08:31)
[2017-08-28 08:32] LABS: CHLORIDE 101 mmol/L (98-107); POTASSIUM 4.8 mmol/L (3.5-5.1); SODIUM 134 mmol/L (136-145)
--- NOTE | 2017-08-28 08:41 | DS ---
Physical Examination Vital Signs: Vital Signs Temperature 98 F 08/28/17 06:36 Pulse Rate 78 08/28/17 06:36 Respiratory Rate 20 08/28/17 06:36 Blood Pressure 144/89 08/28/17 06:36 O2 Sat by Pulse Oximetry (%) 96 08/27/17 21:00 Cardiovascular: Yes: S1, S2 Respiratory: Yes: Regular, CTA Bilaterally Gastrointestinal: Yes: Normal Bowel Sounds, Soft Edema: Yes (less) Labs: CBC, BMP 08/28/17 06:15 Discharge Summary Reason For Visit: ACUTE KIDNEY INJURY, PRESSURE ULCER, CELLULITIS Current Active Problems Abdominal pain (Acute) Acute kidney injury (Acute) Afib (Acute) Asthma (Acute) CHF (congestive heart failure) (Acute) CKD (chronic kidney disease) (Acute) Cellulitis (Acute) Decubitus ulcer (Acute) Dyspnea (Acute) Infected ulcer of skin (Acute) Leg ulcer, left (Acute) Respiratory distress (Acute) Wheezing on auscultation (Acute) Hospital Course: - Problems (1) Cellulitis Assessment/Plan: ID on board off iv zosyn on doxy doppler negative for dvt no fracture vascular consult elevated ESR Code(s): L03.90 - CELLULITIS, UNSPECIFIED Qualifiers: Site of cellulitis: extremity Site of cellulitis of extremity: lower extremity Laterality: left Qualified Code(s): L03.116 - Cellulitis of left lower limb (2) Leg ulcer, left Assessment/Plan: wound culture sent vascular eval ID on board' isolation Code(s): L97.929 - NON-PRS CHRONIC ULC UNSP PRT OF L LOW LEG W UNSP SEVERITY Qualifiers: Non-pressure ulcer stage: unspecified non-pressure ulcer stage Qualified Code(s): L97.929 - Non-pressure chronic ulcer of unspecified part of left lower leg with unspecified severity (3) Alkaline phosphatase elevation Assessment/Plan: CT scan noted nodular liver possible cirrhosis on rifaximin Code(s): R74.8 - ABNORMAL LEVELS OF OTHER SERUM ENZYMES (4) Atrial fibrillation Assessment/Plan: metoprolol and aspirin start xarelto ekg Code(s): I48.91 - UNSPECIFIED ATRIAL FIBRILLATION (5) Hypothyroidism Assessment/Plan: synthroid tsh check Code(s): E03.9 - HYPOTHYROIDISM, UNSPECIFIED (6) CKD (chronic kidney disease) Assessment/Plan: renal eval will monitor bun/cr Code(s): N18.9 - CHRONIC KIDNEY DISEASE, UNSPECIFIED (7) Edema Assessment/Plan: vascular consult--r/o dvt ac--xarelto echo (8) CHF-Acute on chronic diastolic hf LASIX PO clinically and cxr improved bnp Laboratory Tests 08/26/17 05:35 B-Natriuretic Peptide 85371.83 H FOLLOW LABS OUTPATIENT Condition: Improved - Instructions Diet, Activity, Other Instructions: follow up PMD in 3 weeks to check TSH doxycycline for 5 days bactroban ointment on the left leg wound twice a day bacitracin to skin tear Referrals: Dk Mc MD [Staff Physician] - Hector Juárez MD [Primary Care Provider] - Vignesh Courtney MD [Staff Physician] - Kalia Oliver MD [Staff Physician] - Disposition: VNS/HOME HEALTH CARE - Home Medications Comprehensive Discharge Medication List: Ambulatory Orders Aspirin [Aspirin EC] 81 mg PO DAILY 03/08/16 Dexlansoprazole [Dexilant] 60 mg PO DAILY 03/08/16 Febuxostat [Uloric -] 40 mg PO DAILY 03/08/16 Metoprolol Tartrate [Lopressor] 100 mg PO BID 03/08/16 Multivitamins [Multivit ([facility] Formulary)] 1 tab PO DAILY 03/08/16 Rifaximin [Xifaxan -] 550 mg PO BID 03/08/16 Sertraline HCl [Zoloft -] 50 mg PO DAILY 03/08/16 Doxycycline Hyclate [Vibramycin -] 100 mg PO BID@1000,1800 #10 tab MDD 2 Levothyroxine [Synthroid -] 37.5 mcg PO DAILY@0700 #30 tablet MDD 1 08/23/17 Mupirocin Cream [Bactroban 2% Cream -] 1 applic TP BID #1 tube MDD 2 08/23/17 Rivaroxaban [Xarelto -] 20 mg PO DAILY@1800 #0 tablet 08/23/17 Furosemide [Lasix -] 40 mg PO DAILY #30 tablet 08/28/17
[2017-08-28 08:44] LABS: ALBUMIN 3.1 g/dl (3.4-5.0); ALK PHOS 253 U/L (45-117); ANION GAP 11 (8-16); BLOOD UREA NITROGEN 35 mg/dL (7-18); CALCIUM 8.6 mg/dL (8.5-10.1); CO2 22 mmol/L (21-32); CREATININE 1.3 mg/dL (0.55-1.02); GLUCOSE,RANDOM 90 mg/dL (74-106); SGOT/AST 27 U/L (15-37); SGPT/ALT 24 U/L (12-78); TOT PROT 6.5 g/dl (6.4-8.2)
[2017-08-28] MEDS ORDERED: PT OWN MED DRAWER 7, Y5N ONE (09:28)
[2017-08-28] MEDS: ASPIRIN COATED 81 MG TABLET.EC PO SCH (09:32)
[2017-08-28] MEDS: PANTOPRAZOLE 40 MG TABLET (FP) PO SCH (09:32)
[2017-08-28] MEDS: METOPROLOL TARTRATE 50 MG TABLET (FP) PO SCH (09:32)
[2017-08-28] MEDS: SERTRALINE HCL 50 MG TABLET (FP) PO SCH (09:32)
[2017-08-28] MEDS: FUROSEMIDE 40 MG/4 ML INJECTABLE VIAL IVPUSH SCH (09:32)
[2017-08-28] MEDS: MULTIVITAMINS (DAILY MVI) TABLET (FP) PO SCH (09:33)
[2017-08-28] MEDS: BACITRACIN 15 GM TUBE TOPICAL OINTMENT TP SCH (09:33)
[2017-08-28] MEDS: DOXYCYCLINE HYCLATE 100 MG CAPSULE PO SCH (09:33)
[2017-08-28] MEDS: FEBUXOSTAT 40 MG TAB PO SCH (09:37)
[2017-08-28] MEDS: MUPIROCIN CA 2% TOPICAL CREAM 15 GM TUBE TP SCH (09:38)
[2017-08-28 12:15] VITALS: BP 116/53; PULSE 100; TEMP 98.3
== END 2017-08-28 13:05 | disposition home health service (06) | DRG 592 ==
LOC: JER 15:02 → JERBED 23:17 → J7W 08-20 07:20 → J8W 08-21 17:55
PROVIDERS: ADMIT Internal Medicine; ATTEND Family Medicine
DX: L97.929 Non-pressure chronic ulcer of unspecified part of left lower leg with unspecified severity (principal); I50.33 Acute on chronic diastolic (congestive) heart failure; L03.116 Cellulitis of left lower limb; N17.9 Acute kidney failure, unspecified; E87.2 Acidosis; I13.0 Hypertensive heart and chronic kidney disease with heart failure and stage 1 through stage 4 chronic kidney disease, or unspecified chronic kidney disease; I48.91 Unspecified atrial fibrillation; E03.9 Hypothyroidism, unspecified; F03.90 Unspecified dementia, unspecified severity, without behavioral disturbance, psychotic disturbance, mood disturbance, and anxiety; J45.909 Unspecified asthma, uncomplicated; R74.8 Abnormal levels of other serum enzymes; N18.9 Chronic kidney disease, unspecified; I12.9 Hypertensive chronic kidney disease with stage 1 through stage 4 chronic kidney disease, or unspecified chronic kidney disease; E87.70 Fluid overload, unspecified; R60.9 Edema, unspecified
CPT/HCPCS: 36415; 71045-TC-FY; 73590-TC-LT-FY; 74176-TC; 80048; 80053; 81003; 82570; 82977; 83735; 83880; 84100; 84156; 84300; 84443; 84550; 85025; 85610; 85651; 85730; 86140; 87070; 87086; 87186; 87205; 93005; 93010; 93306-TC; 93971-TC; 94010; 94640; 94761; 97116-GP; 97161-GP; 99283-25; G0480; J1644; J7030; J7620

== ENCOUNTER 2018-11-01 17:28 | Emergency (ER) | payer OTHER ==
[2018-11-01 18:04] VITALS: BP 136/71; PULSE 80; TEMP 98.4; BMI 20.3
--- NOTE | 2018-11-01 18:34 | PDOC ---
History of Present Illness - General Chief Complaint: Lightheaded Stated Complaint: FALL History Source: Patient Exam Limitations: No Limitations - History of Present Illness Initial Comments: 11/01/18 18:26 82 yo female pmh unspecified dementia, hyponatremia, hypothyroidsm, CHF, hypothyroidism, asthma, wounds requiring wound care (Dr. Courtney), afib (on asa and eliquis) presents to the ED after a witnessed fall. Granddaughter at the bedside provides HPI, states she was attempting to transfer pt from bed to wheelchair and lost balance leading to her having to ease the pt down and having a right forearm lac. Denies hitting head, MCRAE, changes in vision, changes in speech, weakness on 1 side of her body, confusion, changes in mentation. Pt has a laceration to the right forearm Past History - Past Medical History Allergies/Adverse Reactions: Allergies Allergy/AdvReac Type Severity Reaction Status Date / Time No Known Drug Allergies Allergy Verified 12/08/14 12:46 Home Medications: Ambulatory Orders Aspirin [Aspirin EC] 81 mg PO DAILY 03/08/16 Dexlansoprazole [Dexilant] 60 mg PO DAILY 03/08/16 Febuxostat [Uloric -] 40 mg PO DAILY 03/08/16 Metoprolol Tartrate [Lopressor] 100 mg PO BID 03/08/16 Multivitamins [Multivit ([facility] Formulary)] 1 tab PO DAILY 03/08/16 Sertraline HCl [Zoloft -] 50 mg PO DAILY 03/08/16 Doxycycline Hyclate [Vibramycin -] 100 mg PO BID@1000,1800 #10 tab MDD 2 Mupirocin Cream [Bactroban 2% Cream -] 1 applic TP BID #1 tube MDD 2 08/23/17 Rivaroxaban [Xarelto -] 20 mg PO DAILY@1800 #0 tablet 08/23/17 Albuterol 0.083% Nebulizer Tracy 1 unit PO QID 03/03/18 Levothyroxine [Synthroid -] 75 mcg PO DAILY@0700 MDD 1 03/03/18 Remeron - 15 mg PO DAILY 03/03/18 Risperdal 0.5 mg PO BID 03/03/18 SYMBICORT 160/4.5mcg - 2 inhaler PO BID 03/03/18 Anemia: Yes (mild iron def) Asthma: No Cardiac Disorders: Yes (AFIB) CVA: No COPD: Yes CHF: Yes DVT: (sent today 06/23/14 to r/o lle dvt) Dementia: Yes Diabetes: No GI Disorders: No Disorders: Yes (FREQUENT UTI'S) HTN: Yes Hypercholesterolemia: No Liver Disease: No Psychiatric Problems: Yes (ANXIETY.) Seizures: No Thyroid Disease: Yes (HYPOTHYROIDISM) - Surgical History Abdominal Surgery: Yes Appendectomy: Yes Orthopedic Surgery: Yes (HIP REPLACEMENT, Left) - Immunization History Immunization Up to Date: Yes (allergic to flu shot) - Suicide/Smoking/Psychosocial Hx Smoking Status: No Smoking History: Unknown if ever smoked Have you smoked in the past 12 months: No Number of Cigarettes Smoked Daily: 0 Information on smoking cessation initiated: No Hx Alcohol Use: No Drug/Substance Use Hx: No Substance Use Type: None Hx Substance Use Treatment: No Review of Systems - Review of Systems Constitutional: No: Chills, Fever HEENTM: No: Blurred Vision, Double Vision Respiratory: No: Shortness of Breath Cardiac (ROS): No: Chest Pain, Edema ABD/GI: No: Constipated, Diarrhea, Nausea, Vomiting : No: Burning, Dysuria, Flank Pain, Hematuria Musculoskeletal: No: Back Pain, Neck Pain Integumentary: Yes: Other (right forearm lac) Neurological: No: Headache, Numbness, Paresthesia, Weakness, Dizziness *Physical Exam - Vital Signs Last Vital Signs Temp Pulse Resp BP Pulse Ox 98.4 F 80 16 136/71 94 L 11/01/18 17:28 11/01/18 17:28 11/01/18 17:28 11/01/18 17:28 11/01/18 17:28 - Physical Exam General Appearance: Yes: Nourished, Appropriately Dressed. No: Apparent Distress HEENT: positive: EOMI, CIARAN, Normal Voice, Hearing Grossly Normal. negative: Photophobia Neck: positive: Supple. negative: Carotid bruit, Tender midline Respiratory/Chest: positive: Lungs Clear, Normal Breath Sounds. negative: Respiratory Distress, Accessory Muscle Use, Labored Respiration, Rapid RR, Crackles, Rales, Rhonchi, Wheezing Cardiovascular: positive: Regular Rate, S1, S2, Irregular. negative: Edema, JVD , Murmur Vascular Pulses: Dorsalis-Pedis (R): 3+, Doralis-Pedis (L): 3+ Gastrointestinal/Abdominal: positive: Flat, Soft. negative: Distended, Guarding , Rebound, Tenderness Musculoskeletal: negative: CVA Tenderness, Vertebral Tenderness Extremity: positive: Normal Capillary Refill, Normal Inspection, Pelvis Stable Integumentary: positive: Normal Color, Dry, Warm Neurologic: positive: Alert, Normal Mood/Affect, Normal Response. negative: Fully Oriented (baseline AOX2 ), Facial Droop, Numbness, Sensory Deficit, Finger to Nose, Confused, Disoriented ED Treatment Course - LABORATORY CBC & Chemistry Diagram: 11/01/18 18:24 11/01/18 18:20 - RADIOLOGY Radiology Studies Ordered: Category Date Time Status HEAD CT WITHOUT CONTRAST [CT] Stat CT Scan 11/01/18 18:16 Ordered CHEST X-RAY PORTABLE* [RAD] Stat Radiology 11/01/18 18:07 Ordered Medical Decision Making - Medical Decision Making 11/01/18 19:41 82 yo female pmh unspecified dementia, hyponatremia, hypothyroidsm, CHF, hypothyroidism, asthma, wounds requiring wound care (Dr. Courtney), afib (on asa and eliquis) presents to the ED after a witnessed fall. Granddaughter at the bedside provides HPI, states she was attempting to transfer pt from bed to wheelchair and lost balance leading to her having to ease the pt down and having a right forearm lac. Denies hitting head, MCRAE, changes in vision, changes in speech, weakness on 1 side of her body, confusion, changes in mentation. Pt has a laceration to the right forearm vitals WNL EKG shows known A Fib Discussed head CT with pt, daughter and granddaughter, state pt is at baseline mentation, no new deficits, no MCRAE. State head CT is not necessary and given strict return precautions for possible troke/brain bleed. Lac to R forearm repaired last tetanus less than 5 years ago wound cleaned under pressure no FB 1% lido used 14 sutures placed Complex lac with thin fragile skin. Discussed possibility of skin not re vasularizing and potentially dying. Pt sees wound care, Dr. Courtney, agrees to make appointment and will have wound addressed R hand neurovasularly intact prior to and after lac pt AOX2, NAD at baseline mentation and ADLs, pt safe for DC home with strict return precautions and PCP f/u and wound care 11/01/18 20:00 Labs at baseline other than Na and small elevation in Cr. Discussed with family to have labs rechecked with PCP in 1 week *DC/Admit/Observation/Transfer Diagnosis at time of Disposition: Forearm laceration - Discharge Dispostion Disposition: HOME Condition at time of disposition: Stable Decision to Admit order: No - Referrals Referrals: Hector Juárez MD [Primary Care Provider] - - Patient Instructions Printed Discharge Instructions: DI for Suture Removal, DI for Laceration Repair -- Complex Suture, How to Care for a Surgical Wound-Stitches Additional Instructions: Please see your Primary Doctor and your aquatics specialist within the next 48 hours. Discuss your low sodium and elevated creatinine levels with your primary doctor and have them rechecked. Use over the counter NSAID medication for pain control. Return to the ER immediately for new or concerning symptoms including but not limited to: headaches, changes in vision, changes in speech, weakness or changes in sensation on 1 side of your body, confusion. Have your sutures removed within the next 7-10 days. Use Thank you - Post Discharge Activity
[2018-11-01 18:39] LABS: BASO % 0.5 % (0-2.0); EOS % 1.2 % (0-4.5); HEMATOCRIT 37.2 % (32.4-45.2); HEMOGLOBIN 12.3 GM/dL (10.7-15.3); LYMPH % 11.4 % (8-40); MCH 31.3 pg (25.7-33.7); MEAN PLT VOLUME 10.3 fl (7.5-11.1); MONO % 7.4 % (3.8-10.2); NEUT % 79.5 % (42.8-82.8); PLATELET COUNT 147 K/MM3 (134-434); RBC 3.91 M/mm3 (3.60-5.2); RDW 15.2 % (11.6-15.6); WHITE BLOOD COUNT 10.8 K/mm3 (4.0-10.0)
[2018-11-01 18:54] LABS: INR 1.46 (0.83-1.09); PROTHROMBIN TIME (PATIENT) 17.3 SEC (9.7-13.0)
[2018-11-01] MEDS ORDERED: LIDOCAINE HCL 1%, 10 MG/ML (20ML VIAL) ONE (19:09)
[2018-11-01 19:30] LABS: ALBUMIN 3.6 g/dl (3.4-5.0); ALK PHOS 278 U/L (45-117); ANION GAP 11 MMOL/L (8-16); BILIRUBIN,TOTAL 0.8 mg/dL (0.2-1); BLOOD UREA NITROGEN 29.4 mg/dL (7-18); CALCIUM 8.9 mg/dL (8.5-10.1); CHLORIDE 98 mmol/L (98-107); CO2 23 mmol/L (21-32); CREATININE 1.5 mg/dL (0.55-1.3); GLUCOSE,RANDOM 100 mg/dL (74-106); POTASSIUM 4.4 mmol/L (3.5-5.1); SGOT/AST 33 U/L (15-37); SGPT/ALT 22 U/L (13-61); SODIUM 132 mmol/L (136-145); TOT PROT 7.5 g/dl (6.4-8.2)
[2018-11-01] MEDS ORDERED: LIDOCAINE HCL 1%, 10 MG/ML (50 mL VIAL) SQ ONE (19:50)
--- NOTE | 2018-11-01 20:13 | PDOC ---
Attending Attestation - Resident Resident Name: JoiePaul - ED Attending Attestation I have performed the following: I have examined & evaluated the patient, The case was reviewed & discussed with the resident, I agree w/resident's findings & plan, Exceptions are as noted - HPI HPI: 11/01/18 20:13 Reviewed Residents HPI - Physicial Exam PE: 11/01/18 20:13 Reviewed Residents PE - Medical Decision Making 11/02/18 00:31 Mechanical fall with laceration to right forearm good approximation with sutures Findings, the need for follow-up and strict return instructions discussed with patient and family.
--- NOTE | 2018-11-02 17:44 | EKG ---
Test Reason : Blood Pressure : / mmHG Vent. Rate : 082 BPM Atrial Rate : 150 BPM P-R Int : 000 ms QRS Dur : 096 ms QT Int : 442 ms P-R-T Axes : 000 031 146 degrees QTc Int : 516 ms POOR DATA QUALITY, INTERPRETATION MAY BE ADVERSELY AFFECTED ATRIAL FIBRILLATION INCOMPLETE RIGHT BUNDLE BRANCH BLOCK NONSPECIFIC ST AND T WAVE ABNORMALITY ABNORMAL ECG WHEN COMPARED WITH ECG OF 21-AUG-2017 09:26, QT HAS LENGTHENED Confirmed by ILSA CAIN MD ([id number]) on 11/02/2018 5:43:32 PM Referred By: Confirmed By:ILSA CAIN MD
== END 2018-11-01 22:22 | disposition home or self-care (01) ==
LOC: JER 17:28
PROC: 0HQDXZZ Repair Right Lower Arm Skin, External Approach (ICD-10-PCS; principal; 2018-11-01)
DX: S51.811A Laceration without foreign body of right forearm, initial encounter (principal); F03.90 Unspecified dementia, unspecified severity, without behavioral disturbance, psychotic disturbance, mood disturbance, and anxiety; E87.1 Hypo-osmolality and hyponatremia; E03.9 Hypothyroidism, unspecified; I25.10 Atherosclerotic heart disease of native coronary artery without angina pectoris; J45.909 Unspecified asthma, uncomplicated; I48.91 Unspecified atrial fibrillation; L76.11 Accidental puncture and laceration of skin and subcutaneous tissue during a dermatologic procedure; Z79.01 Long term (current) use of anticoagulants; Y92.9 Unspecified place or not applicable; Y93.9 Activity, unspecified
CPT/HCPCS: 12001-25; 36415; 80053; 82550; 84484; 85025; 85610; 86850; 86900; 86901; 93005; 93010; 99283-25

== ENCOUNTER 2018-11-14 13:20 | Inpatient (IN) | payer OTHER ==
--- NOTE | 2018-11-14 14:33 | PDOC ---
History of Present Illness - General Chief Complaint: Bleeding from Anus Stated Complaint: HEMORRHAGE Time Seen by Provider: 11/14/18 13:56 - History of Present Illness Initial Comments: Ms. Zimmerman is a 82 y/o female with PMH of dementia, hypothyroidism, CHF, asthma on home O2 (3L PRN), a-fib (on eliquis, took this morning), presenting to the ED after 1 day of blood in the stool. Per granddaughter and engineering aide , reports that they noticed red blood in the stool this morning after wiping. Denies hematochezia, hematemesis. Reports that this is the first time she has had this. No blood per rectum. Denies chest pain, denies shortness of breath, denies fever, denies dizziness, headache, nausea, vomiting, dysuria, hematuria. PMH: anemia, rectal prolapse, a-fib Meds: on eliquis Past History - Past Medical History Allergies/Adverse Reactions: Allergies Allergy/AdvReac Type Severity Reaction Status Date / Time No Known Drug Allergies Allergy Verified 11/14/18 15:04 Home Medications: Ambulatory Orders Aspirin [Aspirin EC] 81 mg PO DAILY 03/08/16 Dexlansoprazole [Dexilant] 60 mg PO DAILY 03/08/16 Febuxostat [Uloric -] 40 mg PO DAILY 03/08/16 Metoprolol Tartrate [Lopressor] 100 mg PO BID 03/08/16 Multivitamins [Multivit ([facility] Formulary)] 1 tab PO DAILY 03/08/16 Sertraline HCl [Zoloft -] 50 mg PO DAILY 03/08/16 Doxycycline Hyclate [Vibramycin -] 100 mg PO BID@1000,1800 #10 tab MDD 2 Mupirocin Cream [Bactroban 2% Cream -] 1 applic TP BID #1 tube MDD 2 08/23/17 Rivaroxaban [Xarelto -] 20 mg PO DAILY@1800 #0 tablet 08/23/17 Albuterol 0.083% Nebulizer Tracy [Ventolin 0.083%] 1 neb NEB Q4H PRN 03/03/18 Budesonide/Formeterol Fumarate [SYMBICORT 160/4.5mcg -] 2 inh PO DAILY 03/03/18 Levothyroxine [Synthroid -] 75 mcg PO DAILY@0700 MDD 1 03/03/18 Mirtazapine [Remeron -] 15 mg PO HS 03/03/18 Risperidone [Risperdal -] 0.5 mg PO BID 03/03/18 Anemia: Yes (mild iron def) Asthma: No Cardiac Disorders: Yes (AFIB) CVA: No COPD: Yes CHF: Yes DVT: (sent today 06/23/14 to r/o lle dvt) Dementia: Yes Diabetes: No GI Disorders: No Disorders: Yes (FREQUENT UTI'S) HTN: Yes Hypercholesterolemia: No Liver Disease: No Psychiatric Problems: Yes (ANXIETY.) Seizures: No Thyroid Disease: Yes (HYPOTHYROIDISM) - Surgical History Abdominal Surgery: Yes Appendectomy: Yes Orthopedic Surgery: Yes (HIP REPLACEMENT, Left) - Immunization History Immunization Up to Date: Yes (allergic to flu shot) - Suicide/Smoking/Psychosocial Hx Smoking Status: No Smoking History: Never smoked Have you smoked in the past 12 months: No Number of Cigarettes Smoked Daily: 0 Information on smoking cessation initiated: No Hx Alcohol Use: No Drug/Substance Use Hx: No Substance Use Type: None Hx Substance Use Treatment: No Review of Systems - Review of Systems Comments:: ROS GENERAL/CONSTITUTIONAL: No fever or chills. No weakness._ HEAD, EYES, EARS, NOSE AND THROAT: No change in vision. No ear pain or discharge. No sore throat._ CARDIOVASCULAR: No chest pain or shortness of breath_ RESPIRATORY: Denies cough, hemoptysis_ GASTROINTESTINAL: No nausea, vomiting, diarrhea or constipation. Reports blood in the stool. GENITOURINARY: No dysuria, frequency, or change in urination._ MUSCULOSKELETAL: No joint or muscle swelling or pain. No neck or back pain._ SKIN: No rash_ NEUROLOGIC: No headache, vertigo, loss of consciousness, or change in strength/ sensation._ ENDOCRINE: No increased thirst. No abnormal weight change_ HEMATOLOGIC/LYMPHATIC: Reports anemia. ALLERGIC/IMMUNOLOGIC: No hives or skin allergy. *Physical Exam - Vital Signs Last Vital Signs Temp Pulse Resp BP Pulse Ox 97.4 F L 73 20 86/58 L 95 11/14/18 14:02 11/14/18 14:02 11/14/18 14:02 11/14/18 14:02 11/14/18 14:02 - Physical Exam Comments: PE GENERAL: Awake, alert, in no acute distress_ HEAD: No signs of trauma, normocephalic, atraumatic _ EYES: PERRLA, EOMI, sclera anicteric, conjunctiva clear_ ENT: Hearing grossly normal, nares patent, oropharynx clear without exudates. No uvular deviation. Moist mucosa_ NECK: Normal ROM, supple, no lymphadenopathy, JVD, or masses_ LUNGS: No distress, speaks in full sentences, clear to auscultation bilaterally _ HEART: Regular rate and rhythm, normal S1 and S2, no murmurs appreciated, peripheral pulses normal and equal bilaterally._ ABDOMEN: Soft, epigastric, RLQ, and LLQ tenderness. No rebound, no guarding, no masses. BACK: No CVA tenderness bilaterally. RECTAL: No masses, normal rectal tone. Minimal stool and no kris blood in the rectal vault. EXTREMITIES: Normal inspection, Normal range of motion, no edema. No clubbing or cyanosis_ NEUROLOGICAL: Cranial nerves II through XII grossly intact. Normal speech, normal gait, no focal sensorimotor deficits _ SKIN: Warm, Dry, normal turgor, no rashes or lesions noted. ED Treatment Course - LABORATORY CBC & Chemistry Diagram: 11/14/18 14:20 11/14/18 14:20 - RADIOLOGY Radiology Studies Ordered: Category Date Time Status CHEST X-RAY PORTABLE* [RAD] Stat Radiology 11/14/18 14:26 Ordered Medical Decision Making - Medical Decision Making 11/14/18 1430 82F on eliquis presenting with blood in the stool that started this morning. Hx of anemia, no dizziness, no headache, no heart palpitations, not tachycardic at this time. BLQ abdominal tenderness. Will obtain CBC, CMP, lactic acid, coags, type and screen, CXR. EKG shows HR 71 bpm, atrial fibrillation, incomplete right bundle branch block, similar findings on EKG from November 01, 2018. *DC/Admit/Observation/Transfer Diagnosis at time of Disposition: CARIN (acute kidney injury) GI bleed Qualifiers: GI bleed type/associated pathology: unspecified gastrointestinal hemorrhage type Qualified Code(s): K92.2 - Gastrointestinal hemorrhage, unspecified - Discharge Dispostion Condition at time of disposition: Stable Decision to Admit order: Yes - Referrals - Patient Instructions - Post Discharge Activity
[2018-11-14 14:57] LABS: BASO % 1.3 % (0-2.0); EOS % 4.2 % (0-4.5); HEMATOCRIT 35.4 % (32.4-45.2); HEMOGLOBIN 11.8 GM/dL (10.7-15.3); LYMPH % 5.8 % (8-40); MCH 32.2 pg (25.7-33.7); MCHC 33.5 g/dl (32.0-36.0); MEAN CELL VOLUME 96.1 fl (80-96); MEAN PLT VOLUME 9.4 fl (7.5-11.1); MONO % 6.4 % (3.8-10.2); NEUT % 82.3 % (42.8-82.8); RBC 3.68 M/mm3 (3.60-5.2); WHITE BLOOD COUNT 10.8 K/mm3 (4.0-10.0)
[2018-11-14 15:05] LABS: PLATELET COUNT 213 K/MM3 (134-434)
[2018-11-14 15:12] LABS: INR 1.74 (0.83-1.09); PROTHROMBIN TIME (PATIENT) 20.6 SEC (9.7-13.0)
[2018-11-14 15:29] LABS: ALBUMIN 3.4 g/dl (3.4-5.0); BILIRUBIN,TOTAL 1.7 mg/dL (0.2-1); BLOOD UREA NITROGEN 45.1 mg/dL (7-18); POTASSIUM 4.3 mmol/L (3.5-5.1); TOT PROT 7.5 g/dl (6.4-8.2)
[2018-11-14] MEDS ORDERED: PANTOPRAZOLE SODIUM 40 MG VIAL IVPUSH ONE (15:29)
[2018-11-14] MEDS ORDERED: SODIUM CHLORIDE 0.9% 500 ML INFUS.BAG IV ONE (15:29)
--- NOTE | 2018-11-14 15:32 | PDOC ---
Documentation entered by Kieran Hermosillo SCRIBE, acting as scribe for Wil Whitt MD. Wil Whitt MD: This documentation has been prepared by the Jaimee lomeli Xhesika, SCRIBE, under my direction and personally reviewed by me in its entirety. I confirm that the documentation accurately reflects all work, treatment, procedures, and medical decision making performed by me. Attending Attestation - Resident Resident Name: Jaden Tripp - ED Attending Attestation I have performed the following: I have examined & evaluated the patient, The case was reviewed & discussed with the resident, I agree w/resident's findings & plan, Exceptions are as noted - HPI HPI: 11/14/18 14:26 The patient is an 82 year old female with a significant PMH of unspecified dementia, hyponatremia, hypothyroidism, CHF, hypothyroidism, asthma, wounds requiring wound care (Dr. Courtney), afib (on eliquis) who presents to the emergency department with one day of rectal bleeding. The patient states she has had a couple episodes of dark red blood in the stool. The patient notes she last took her Eliquis today. Endorses lower abdominal pain. Denies N/V. Denies F /C. The patient denies chest pain, shortness of breath, headache and dizziness. Denies fever, chills, cough, nausea, vomiting, diarrhea and constipation. Denies dysuria, frequency, urgency. Allergies: NKDA - Physicial Exam PE: 11/14/18 14:27 GENERAL: Awake, alert, and fully oriented, in no acute distress. HEAD: No signs of trauma EYES: PERRLA, EOMI, sclera anicteric, conjunctiva clear ENT: Auricles normal inspection, hearing grossly normal, nares patent, oropharynx clear without exudates. Moist mucosa NECK: Nontender, no stepoffs, Normal ROM, supple, no lymphadenopathy, JVD, or masses LUNGS: Breath sounds equal, clear to auscultation bilaterally. No wheezes, and no crackles HEART: Regular rate and rhythm, normal S1 and S2, no murmurs, rubs or gallops ABDOMEN: + RLQ and LLQ TTP, normoactive bowel sounds. No guarding, no rebound. No masses EXTREMITIES: Normal range of motion, no edema. No clubbing or cyanosis. No cords, erythema, or tenderness NEUROLOGICAL: Cranial nerves II through XII intact. 5/5 strength and sensation in all extremities, Normal speech, normal gait, normal cerebellar function SKIN: Warm, Dry, normal turgor, no rashes or lesions noted. RECTAL: + maroon stools - Medical Decision Making 11/14/18 15:35 82 F with GI bleed and lower abdominal pain. Vitals notable for hypotension. - Labs, T&S, coags - Stool guaiac - CTAP - Protonix 11/14/18 17:10 CT unremarkable Will admit for GI eval
[2018-11-14] MEDS ORDERED: PANTOPRAZOLE SODIUM 40 MG VIAL ONE (16:32)
[2018-11-14] MEDS ORDERED: BACITRACIN 15 GM TUBE TOPICAL OINTMENT TP ONE (18:59)
[2018-11-14] MEDS ORDERED: BACITRACIN 0.9 GM PACKET ONE (19:00)
--- NOTE | 2018-11-14 20:52 | HP ---
Admitting History and Physical - Primary Care Physician PCP: Hector Juárez I - Admission Chief Complaint: Red Blood in Stool History of Present Illness: This is a 82m y/o woman with a PMHxc of Dementia, Anemia, CHF, Afib (on Eliquis) , Asthma, Hypothroidism, Chronic Wounds (Dr. Courtney). Who presents to the ED with BRB in stool. History Source: Medical Record Limitations to Obtaining History: Dementia - Past Medical History SAFETY COMPANION: Yes: Dementia Cardiovascular: Yes: AFIB, HTN Pulmonary: Yes: COPD Renal/: Yes: Other Heme/Onc: Yes: Anemia Psych: Yes: Depression Musculoskeletal: Yes: Chronic low back pain - Past Surgical History Past Surgical History: Yes: Joint Replacement - Smoking History Smoking history: Never smoked Have you smoked in the past 12 months: No Aproximately how many cigarettes per day: 0 - Alcohol/Substance Use Hx Alcohol Use: No - Social History ADL: Support Services History of Recent Travel: No Home Medications - Allergies Allergies/Adverse Reactions: Allergies Allergy/AdvReac Type Severity Reaction Status Date / Time No Known Drug Allergies Allergy Verified 11/14/18 15:04 - Home Medications Home Medications: Ambulatory Orders Aspirin [Aspirin EC] 81 mg PO DAILY 03/08/16 Dexlansoprazole [Dexilant] 60 mg PO DAILY 03/08/16 Febuxostat [Uloric -] 40 mg PO DAILY 03/08/16 Metoprolol Tartrate [Lopressor] 100 mg PO BID 03/08/16 Multivitamins [Multivit ([facility] Formul[facility])] 1 tab PO DAILY 03/08/16 Sertraline HCl [Zoloft -] 50 mg PO DAILY 03/08/16 Doxycycline Hyclate [Vibramycin -] 100 mg PO BID@1000,1800 #10 tab MDD 2 Mupirocin Cream [Bactroban 2% Cream -] 1 applic TP BID #1 tube MDD 2 08/23/17 Rivaroxaban [Xarelto -] 20 mg PO DAILY@1800 #0 tablet 08/23/17 Albuterol 0.083% Nebulizer Tarcy [Ventolin 0.083%] 1 neb NEB Q4H PRN 03/03/18 Budesonide/Formeterol Fumarate [SYMBICORT 160/4.5mcg -] 2 inh PO DAILY 03/03/18 Levothyroxine [Synthroid -] 75 mcg PO DAILY@0700 MDD 1 03/03/18 Mirtazapine [Remeron -] 15 mg PO HS 03/03/18 Risperidone [Risperdal -] 0.5 mg PO BID 03/03/18 Family Disease History - Family Disease History Family History: Unable to Obtain Review of Systems Unable to obtain ROS, reason: Dementia Physical Examination Vital Signs: Vital Signs Temperature 97.4 F L 11/14/18 14:02 Pulse Rate 73 11/14/18 19:54 Respiratory Rate 17 11/14/18 19:54 Blood Pressure 149/83 11/14/18 19:54 O2 Sat by Pulse Oximetry (%) 95 11/14/18 19:54 Labs: CBC, BMP 11/14/18 14:20 11/14/18 14:20 Imaging - Results Chest X-ray: Report Reviewed, Image Reviewed Cat Scan: Report Reviewed, Image Reviewed Problem List - Problems (1) GI bleed Code(s): K92.2 - GASTROINTESTINAL HEMORRHAGE, UNSPECIFIED Qualifiers: GI bleed type/associated pathology: unspecified gastrointestinal hemorrhage type Qualified Code(s): K92.2 - Gastrointestinal hemorrhage, unspecified (2) Acute kidney injury superimposed on CKD Code(s): N17.9 - ACUTE KIDNEY FAILURE, UNSPECIFIED; N18.9 - CHRONIC KIDNEY DISEASE, UNSPECIFIED (3) Atrial fibrillation Code(s): I48.91 - UNSPECIFIED ATRIAL FIBRILLATION Qualifiers: (4) CHF (congestive heart failure) Code(s): I50.9 - HEART FAILURE, UNSPECIFIED (5) GERD (gastroesophageal reflux disease) Code(s): K21.9 - GASTRO-ESOPHAGEAL REFLUX DISEASE WITHOUT ESOPHAGITIS (6) Hypertension Code(s): I10 - ESSENTIAL (PRIMARY) HYPERTENSION (7) Hypothyroidism Code(s): E03.9 - HYPOTHYROIDISM, UNSPECIFIED Assessment/Plan This is a 82 y/o woman with a PMHx of Dementia, Anemia, CHF, Afib (on Eliquis), Hypothyroidism, Asthma, Chronic Wounds, CKD. Admitted to Telemetry for GI Bleed , Acute on Chronic CKD for further evaluation of their emergent condition. Plan: Admit Continue Cardiac monitoring Appreciate GI consult Appreciate Nephrology consult CTAP reviewed- no acute pathology, hepatic cirrhosis, small bilateral pleural effusions, cardiomegaly Stool occult + H/H 11.8/35.4 PLT 213 Chest Xray- cardiomegaly, scoliosis, clear ABBI, R-lung. granulomatous changes R- lung Protonix, NS bolus given in ED Continue Protonix daily NPO tonight, consider Clear Liquid Diet in am Repeat CBC tonight CBC, BMP in am Hold Eliquis for now Hold BP meds tonight- pt was hypotensive on arrival then given NS bolus FEN- replete lytes DVT ppx- OOB, SCDs Dispo- Requires Inpatient Care Visit type - Emergency Visit Emergency Visit: Yes ED Registration Date: 11/14/18 Care time: The patient presented to the Emergency Department on the above date and was hospitalized for further evaluation of their emergent condition. - New Patient This patient is new to me today: Yes Date on this admission: 11/14/18 - Critical Care Critical Care patient: No
[2018-11-14 23:18] LABS: EPI CELLS 1.1 /HPF (0-5/HPF); HYALINE CASTS 7 /lpf (0-8); PH,URINE 5.5 (5.0-8.0); URINE APPEARANCE CLOUDY; URINE BACTERIA 1090.8 /hpf (NEGATIVE); URINE BILIRUBIN NEGATIVE (NEGATIVE); URINE COLOR YELLOW; URINE GLUCOSE (UA) NEGATIVE (NEGATIVE); URINE KETONE NEGATIVE (NEGATIVE); URINE LEUK ESTERASE 2+ (NEGATIVE); URINE NITRITE NEGATIVE (NEGATIVE); URINE PROTEIN NEGATIVE (NEGATIVE); URINE RBC 3 /hpf (0-4); URINE WBC 53 /hpf (0-5)
[2018-11-14 23:23] LABS: BASO % 2.5 % (0-2.0); EOS % 8.8 % (0-4.5); HEMATOCRIT 36.3 % (32.4-45.2); HEMOGLOBIN 12.1 GM/dL (10.7-15.3); LYMPH % 13.8 % (8-40); MCH 32.1 pg (25.7-33.7); MCHC 33.3 g/dl (32.0-36.0); MEAN CELL VOLUME 96.7 fl (80-96); MEAN PLT VOLUME 9.5 fl (7.5-11.1); NEUT % 65.9 % (42.8-82.8); PLATELET COUNT 180 K/MM3 (134-434); RBC 3.76 M/mm3 (3.60-5.2); RDW 15.1 % (11.6-15.6); WHITE BLOOD COUNT 8.9 K/mm3 (4.0-10.0)
[2018-11-15 01:29] VITALS: BMI 28.1
[2018-11-15] MEDS ORDERED: ALBUTEROL SO4 0.083% IH SOL 2.5 MG/3 ML VIAL.NEB. NEB PRN (06:58)
[2018-11-15 07:48] LABS: BASO % 1.2 % (0-2.0); EOS % 11.5 % (0-4.5); HEMATOCRIT 33.9 % (32.4-45.2); HEMOGLOBIN 11.5 GM/dL (10.7-15.3); LYMPH % 16.7 % (8-40); MCH 32.3 pg (25.7-33.7); MCHC 33.8 g/dl (32.0-36.0); MEAN CELL VOLUME 95.5 fl (80-96); MEAN PLT VOLUME 9.3 fl (7.5-11.1); MONO % 8.5 % (3.8-10.2); NEUT % 62.1 % (42.8-82.8); PLATELET COUNT 181 K/MM3 (134-434); RBC 3.55 M/mm3 (3.60-5.2); RDW 15.2 % (11.6-15.6); WHITE BLOOD COUNT 7.4 K/mm3 (4.0-10.0)
[2018-11-15 07:53] LABS: BLOOD UREA NITROGEN 40.2 mg/dL (7-18); CALCIUM 8.7 mg/dL (8.5-10.1); CREATININE 1.7 mg/dL (0.55-1.3); POTASSIUM 4.2 mmol/L (3.5-5.1)
[2018-11-15] MEDS: LEVOTHYROXINE NA 75 MCG TABLET (FP) PO SCH (08:32)
[2018-11-15] MEDS ORDERED: PT OWN MED DRAWER 7, Y5N ONE (10:50)
[2018-11-15] MEDS: BUDESONIDE/FORMETEROL FUMARATE 160/4.5 mcg INHALER IH SCH (11:02)
[2018-11-15] MEDS: SERTRALINE HCL 50 MG TABLET (FP) PO SCH (11:03)
[2018-11-15] MEDS: MULTIVITAMINS (DAILY MVI) TABLET (FP) PO SCH (11:03)
[2018-11-15] MEDS: risperiDONE 0.5 MG TABLET (FP) PO SCH ×2 (11:03→22:18)
[2018-11-15] MEDS: MUPIROCIN CA 2% TOPICAL CREAM 15 GM TUBE TP SCH ×2 (11:03→22:19)
--- NOTE | 2018-11-15 13:33 | CON.NEP ---
Consult Consult Specialty:: nephrology Reason for Consultation:: renal insufficiency - History of Present Illness Chief Complaint: rectal bleeding History of Present Illness: The patient is an 82 year old female with a significant PMH of unspecified dementia, hyponatremia, hypothyroidism, CHF, asthma, wounds requiring wound care (Dr. Courtney), afib (on eliquis) who presents to the emergency department with one day of rectal bleeding. The patient states she has had a couple episodes of dark red blood in the stool. The patient notes she last took her Eliquis today. Endorses lower abdominal pain. Denies N/V. Denies F/C. The patient denies chest pain, shortness of breath, headache and dizziness. Denies fever, chills, cough, nausea, vomiting, diarrhea and constipation. Denies dysuria, frequency, urgency. History mostly from daughter who states mother h as had multiple uti's and now has another one and needs antibiotics. 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 Cardio/Vascular: Yes: AFIB, HTN Pulmonary: Yes: COPD Renal/: Yes: Other ...: No Psych: Yes: Depression Musculoskeletal: Yes: Chronic low back pain Additional Medical History: stage V sacral ulcer - Past Surgical History Past Surgical History: Yes: Joint Replacement - Alcohol/Substance Use Hx Alcohol Use: No - Smoking History Smoking history: Never smoked Have you smoked in the past 12 months: No Aproximately how many cigarettes per day: 0 - Social History Usual Living Arrangement: Assisted Living ADL: Support Services History of Recent Travel: No Home Medications - Allergies Allergies/Adverse Reactions: Allergies Allergy/AdvReac Type Severity Reaction Status Date / Time No Known Drug Allergies Allergy Verified 11/14/18 15:04 - Home Medications Home Medications: Ambulatory Orders Aspirin [Aspirin EC] 81 mg PO DAILY 03/08/16 Dexlansoprazole [Dexilant] 60 mg PO DAILY 03/08/16 Febuxostat [Uloric -] 40 mg PO DAILY 03/08/16 Metoprolol Tartrate [Lopressor] 100 mg PO BID 03/08/16 Multivitamins [Multivit ([facility] Form[facility])] 1 tab PO DAILY 03/08/16 Sertraline HCl [Zoloft -] 50 mg PO DAILY 03/08/16 Doxycycline Hyclate [Vibramycin -] 100 mg PO BID@1000,1800 #10 tab MDD 2 Mupirocin Cream [Bactroban 2% Cream -] 1 applic TP BID #1 tube MDD 2 08/23/17 Albuterol 0.083% Nebulizer Tracy [Ventolin 0.083%] 1 neb NEB Q4H PRN 03/03/18 Budesonide/Formeterol Fumarate [SYMBICORT 160/4.5mcg -] 2 inh PO DAILY 03/03/18 Levothyroxine [Synthroid -] 75 mcg PO DAILY@0700 MDD 1 03/03/18 Mirtazapine [Remeron -] 15 mg PO HS 03/03/18 Risperidone [Risperdal -] 0.5 mg PO BID 03/03/18 Albuterol 0.083% Nebulizer Tracy 0.083 neb PRN PRN 11/15/18 Apixaban [Eliquis] 2.5 mg PO BID 11/15/18 Docusate Sodium [Colace] 200 mg PO HS 11/15/18 Furosemide [Lasix] 40 mg PO DAILY 11/15/18 Lidocaine 17 adh.patch TD PRN 11/15/18 Loratadine [Claritin -] 10 mg PO DAILY 11/15/18 Metoclopramide HCl [Reglan] 5 mg PO ACDIN 11/15/18 Mirabegron [Myrbetriq] 25 mg PO DAILY 11/15/18 Nystatin/Triamcin [Nystatin-Triamcinolone Cream] 15 gm TD BID 11/15/18 Review of Systems - Review of Systems Constitutional: reports: No Symptoms Eyes: reports: No Symptoms HENT: reports: No Symptoms Neck: reports: No Symptoms Cardiovascular: reports: No Symptoms Respiratory: reports: No Symptoms Gastrointestinal: reports: Abdominal Pain, Rectal Bleeding Genitourinary: reports: No Symptoms Breasts: reports: No Symptoms Reported Musculoskeletal: reports: No Symptoms Integumentary: reports: No Symptoms Neurological: reports: Confusion Endocrine: reports: No Symptoms Hematology/Lymphatic: reports: No Symptoms Psychiatric: reports: No Symptoms Nephrology Consult - Height Height: 5 ft 7 in - Weight Weight: 180 lb - BMI Body Mass Index (BMI): 28.1 - Lab Results CBC,BMP: CBC, BMP 11/15/18 06:17 11/15/18 06:17 Anion Gap: Anion Gap Anion Gap 9 MMOL/L (8-16) 11/15/18 06:17 - Imaging Chest X-ray: Report Reviewed - Physical Examination Vital Signs: Vital Signs Temperature 98.1 F 11/15/18 06:00 Pulse Rate 85 11/15/18 06:00 Respiratory Rate 18 11/15/18 06:00 Blood Pressure 146/85 11/15/18 06:00 O2 Sat by Pulse Oximetry (%) 95 11/14/18 23:00 Constitutional: Yes: No Distress, Calm Eyes: Yes: Conjunctiva Clear, EOM Intact HENT: Yes: Atraumatic, Normocephalic Neck: Yes: Supple, Trachea Midline Cardiovascular: Yes: Pulse Irregular Respiratory: Yes: Diminished Gastrointestinal: Yes: Normal Bowel Sounds Renal/: No: Bladder Distention Musculoskeletal: Yes: WNL Extremities: Yes: WNL Edema: No Neurological: Yes: Alert Psychiatric: Yes: Alert Assessment/Plan IMPRESSION CARIN on CKD recurrent urinary tract infections. Previously had E Coli but also had Klebsiella ESBL recent GI bleeding falls hypothyroid PLAN start ceftriaxone urine sodium and creat follow urine culture repeat renal sono hold shira cardiology and ID consult MINNA
[2018-11-15] MEDS ORDERED: cefTRIAXone SODIUM 1 GM VIAL ONE (14:07)
[2018-11-15] MEDS ORDERED: DEXTROSE 5%-WATER - 50 ML IVPB ONE (14:07)
[2018-11-15] MEDS: CEFTRIAXONE 1 GM in DEXTROSE 5%-WATER - 50 ML IVPB SCH (14:21)
--- NOTE | 2018-11-15 15:21 | CON.GI ---
Consult Consult Specialty:: GI: Dr. Ramos covering for Dr. Segundo who resumes care 11/17 Referred by:: Dr. Moore Reason for Consultation:: rectal bleed - History of Present Illness Chief Complaint: patient gives no complaints. ER note states admitted for rectal bleeding History of Present Illness: 82F admitted for evaluation of blood in stool. Patient offers no focal GI complaints. She may have had a previous work-up with Dr. Kimble. Patient has a history of dementia and is a poor historian. there has been no overt bleeding. She was noted to be guaiac positive in the ER. She is at her baseline hemoglobin. 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 Cardio/Vascular: Yes: AFIB, HTN Pulmonary: Yes: COPD Renal/: Yes: Other ...: No Psych: Yes: Depression Musculoskeletal: Yes: Chronic low back pain Additional Medical History: stage V sacral ulcer - Past Surgical History Past Surgical History: Yes: Appendectomy, Joint Replacement (right hip) - Alcohol/Substance Use Hx Alcohol Use: No History of Substance Use: reports: None - Smoking History Smoking history: Never smoked Have you smoked in the past 12 months: No Aproximately how many cigarettes per day: 0 - Social History Usual Living Arrangement: Assisted Living ADL: Support Services History of Recent Travel: No Home Medications - Allergies Allergies/Adverse Reactions: Allergies Allergy/AdvReac Type Severity Reaction Status Date / Time No Known Drug Allergies Allergy Verified 11/14/18 15:04 - Home Medications Home Medications: Ambulatory Orders Aspirin [Aspirin EC] 81 mg PO DAILY 03/08/16 Dexlansoprazole [Dexilant] 60 mg PO DAILY 03/08/16 Febuxostat [Uloric -] 40 mg PO DAILY 03/08/16 Metoprolol Tartrate [Lopressor] 100 mg PO BID 03/08/16 Multivitamins [Multivit ([facility] Formul[facility])] 1 tab PO DAILY 03/08/16 Sertraline HCl [Zoloft -] 50 mg PO DAILY 03/08/16 Doxycycline Hyclate [Vibramycin -] 100 mg PO BID@1000,1800 #10 tab MDD 2 Mupirocin Cream [Bactroban 2% Cream -] 1 applic TP BID #1 tube MDD 2 08/23/17 Albuterol 0.083% Nebulizer Tracy [Ventolin 0.083%] 1 neb NEB Q4H PRN 03/03/18 Budesonide/Formeterol Fumarate [SYMBICORT 160/4.5mcg -] 2 inh PO DAILY 03/03/18 Levothyroxine [Synthroid -] 75 mcg PO DAILY@0700 MDD 1 03/03/18 Mirtazapine [Remeron -] 15 mg PO HS 03/03/18 Risperidone [Risperdal -] 0.5 mg PO BID 03/03/18 Albuterol 0.083% Nebulizer Tracy 0.083 neb PRN PRN 11/15/18 Apixaban [Eliquis] 2.5 mg PO BID 11/15/18 Docusate Sodium [Colace] 200 mg PO HS 11/15/18 Furosemide [Lasix] 40 mg PO DAILY 11/15/18 Lidocaine 17 adh.patch TD PRN 11/15/18 Loratadine [Claritin -] 10 mg PO DAILY 11/15/18 Metoclopramide HCl [Reglan] 5 mg PO ACDIN 11/15/18 Mirabegron [Myrbetriq] 25 mg PO DAILY 11/15/18 Nystatin/Triamcin [Nystatin-Triamcinolone Cream] 15 gm TD BID 11/15/18 Umeclidinium [place] [Incruse Ellipta] 62.5 mcg IH DAILY 11/15/18 Family Disease History - Family Disease History Family History: Unable to Obtain Review of Systems - Review of Systems Gastrointestinal: denies: Abdominal Pain, Diarrhea Physical Exam-GI Vital Signs: Vital Signs Temperature 98.5 F 11/15/18 14:00 Pulse Rate 106 H 11/15/18 14:00 Respiratory Rate 18 11/15/18 14:00 Blood Pressure 156/87 11/15/18 14:00 O2 Sat by Pulse Oximetry (%) 95 11/14/18 23:00 Constitutional: Yes: Calm Eyes: No: Sclera Icterus Cardiovascular: Yes: Tachycardia, Pulse Irregular Respiratory: Yes: Diminished (at bases bilaterally, poor insp effort) Gastrointestinal Inspection: Yes: Scars (RLQ scar) ...Auscultate: Yes: Normoactive Bowel Sounds ...Palpate: Yes: Soft. No: Hepatomegaly, Splenomegaly, Tenderness ...Percussion: No: Tympanitic ...Rectal Exam: Yes: Other (No external lesions, no masses, light moore stool in rectal vault) Edema: No (No LE edema) Neurological: Yes: Alert Labs: CBC, BMP 11/15/18 06:17 11/15/18 06:17 INR, PTT INR 1.74 (0.83-1.09) H 11/14/18 14:20 Fibrinogen 440.0 mg/dL (238-498) 11/14/18 14:20 Problem List - Problems (1) Rectal bleed Assessment/Plan: No overt bleeding, hemodynamically stable Dr. Segundo resumes coverage on 11/17. He can review records from his office re: previous work-up and base recommendations on that along with her clinical course Ms. Zimmerman's nurse explains to me that patient's daughter does not want her mother undergoing further testing. If that is the case, goals of care need to be addressed Monitor for overt bleeding Code(s): K62.5 - HEMORRHAGE OF ANUS AND RECTUM
[2018-11-15] MEDS ORDERED: ACETAMINOPHEN 325 MG TABLET (FP) PO PRN (19:17)
--- NOTE | 2018-11-15 20:23 | PN ---
Progress Note, Physician Chief Complaint: Rectal bleed History of Present Illness: NAD Seen by GI and Nephrology started on iv abx for possible UTI UC pending - Current Medication List Current Medications: Active Medications Acetaminophen (Tylenol -) 650 mg PO Q4H PRN PRN Reason: PAIN OR FEVER Albuterol Sulfate (Ventolin 0.083% Nebulizer Soln -) 1 amp NEB Q4H PRN PRN Reason: SHORTNESS OF BREATH Apixaban (Eliquis -) 2.5 mg PO BID [facility] Aspirin (Ecotrin -) 81 mg PO DAILY [facility] Budesonide/Formoterol Fumarate (Symbicort 160/4.5mcg -) 2 puff IH DAILY [facility] Last Admin: 11/15/18 11:02 Dose: 2 puff Docusate Sodium (Colace -) 300 mg PO HS [place] Febuxostat (Uloric -) 40 mg PO DAILY [facility] Ceftriaxone Sodium 1 gm/ (Dextrose) 50 mls @ 200 mls/hr IVPB DAILY [facility]; Protocol Last Admin: 11/15/18 14:21 Dose: 200 mls/hr Levothyroxine Sodium (Synthroid -) 75 mcg PO DAILY@0700 [facility] Last Admin: 11/15/18 08:32 Dose: 75 mcg Lidocaine (Lidoderm Patch -) 1 patch TP DAILY [facility] Loratadine (Claritin -) 10 mg PO DAILY [facility] Metoclopramide HCl (Reglan -) 5 mg PO TIDAC [facility] Mirtazapine (Remeron -) 15 mg PO HS [facility] Miscellaneous (Lidoderm Patch Removal) 1 each MC DAILY@2200 [facility] Multivitamins/Minerals/Vitamin C (Tab-A-Vit -) 1 tab PO DAILY [facility] Last Admin: 11/15/18 11:03 Dose: 1 tab Mupirocin (Bactroban 2% Cream -) 1 applic TP BID [facility] Last Admin: 11/15/18 11:03 Dose: 1 applic Non-Formulary Medication (Umeclidinium [place] [Incruse Ellipta]) 62.5 mcg IH DAILY [facility] Nystatin/Triamcinolone Acetonide (Mycolog Ii Ointment -) 1 applic TP BID [facility] Risperidone (Risperdal -) 0.5 mg PO BID [facility] Last Admin: 11/15/18 11:03 Dose: 0.5 mg Sertraline HCl (Zoloft -) 50 mg PO DAILY [facility] Last Admin: 11/15/18 11:03 Dose: 50 mg - Objective Vital Signs: Vital Signs Temperature 98.5 F 11/15/18 14:00 Pulse Rate 84 11/15/18 18:00 Respiratory Rate 18 11/15/18 18:00 Blood Pressure 156/87 11/15/18 14:00 O2 Sat by Pulse Oximetry (%) 96 11/15/18 10:00 Constitutional: Yes: Well Nourished, No Distress, Calm Cardiovascular: Yes: Regular Rate and Rhythm Respiratory: Yes: Regular Gastrointestinal: Yes: WNL Genitourinary: Yes: Incontinence Musculoskeletal: Yes: Muscle Weakness Extremities: Yes: WNL Edema: No Peripheral Pulses WNL: Yes Neurological: Yes: Alert Psychiatric: Yes: Alert Labs: CBC, BMP 11/15/18 06:17 11/15/18 06:17 INR, PTT INR 1.74 (0.83-1.09) H 11/14/18 14:20 Fibrinogen 440.0 mg/dL (238-498) 11/14/18 14:20 Problem List - Problems (1) CARIN (acute kidney injury) Assessment/Plan: -nephrology on board -U/S renal -Await UC -Started on IV abx for possible UTI -Monitor trend Code(s): N17.9 - ACUTE KIDNEY FAILURE, UNSPECIFIED (2) Rectal bleed Assessment/Plan: -no overt bleeding -Seen by GI -Daughter doesn't want any aggressive measures -Avoid constipation Code(s): K62.5 - HEMORRHAGE OF ANUS AND RECTUM Assessment/Plan see problem list Physical therapy
[2018-11-15] MEDS ORDERED: LIDOCAINE PATCH REMOVAL MC SCH (22:00)
[2018-11-15] MEDS ORDERED: MIRTAZAPINE 15 MG TABLET (FP) PO SCH (22:00)
[2018-11-15] MEDS ORDERED: DOCUSATE SODIUM 100 MG CAPSULE (FP) PO SCH (22:00)
[2018-11-15] MEDS: LIDOCAINE 5% TOPICAL PATCH TP SCH (22:09)
[2018-11-15] MEDS: NYSTATIN/TRIAMCINOLONE TOPICAL OINTMENT 15 GM TUBE TP SCH (22:18)
[2018-11-15] MEDS: APIXABAN 2.5 MG TABLET PO SCH (22:18)
[2018-11-15] MEDS: METOCLOPRAMIDE HCL 10 MG TABLET (FP) PO SCH (22:19)
[2018-11-16] MEDS: LEVOTHYROXINE NA 75 MCG TABLET (FP) PO SCH (06:27)
[2018-11-16] MEDS: METOCLOPRAMIDE HCL 10 MG TABLET (FP) PO SCH ×3 (06:27→16:45)
[2018-11-16 07:18] LABS: BASO % 1.5 % (0-2.0); EOS % 8.7 % (0-4.5); HEMATOCRIT 33.2 % (32.4-45.2); HEMOGLOBIN 11.1 GM/dL (10.7-15.3); LYMPH % 15.6 % (8-40); MCH 32.1 pg (25.7-33.7); MCHC 33.4 g/dl (32.0-36.0); MEAN CELL VOLUME 96.1 fl (80-96); MEAN PLT VOLUME 9.3 fl (7.5-11.1); MONO % 9.6 % (3.8-10.2); NEUT % 64.6 % (42.8-82.8); PLATELET COUNT 171 K/MM3 (134-434); RBC 3.46 M/mm3 (3.60-5.2); RDW 14.9 % (11.6-15.6); WHITE BLOOD COUNT 7.3 K/mm3 (4.0-10.0)
[2018-11-16 07:35] LABS: ALBUMIN 2.9 g/dl (3.4-5.0); BILIRUBIN,TOTAL 1.3 mg/dL (0.2-1); BLOOD UREA NITROGEN 27.3 mg/dL (7-18); CALCIUM 8.5 mg/dL (8.5-10.1); CREATININE 1.3 mg/dL (0.55-1.3); POTASSIUM 3.8 mmol/L (3.5-5.1); TOT PROT 6.4 g/dl (6.4-8.2)
--- NOTE | 2018-11-16 09:13 | EKG ---
Test Reason : Blood Pressure : / mmHG Vent. Rate : 071 BPM Atrial Rate : 277 BPM P-R Int : 000 ms QRS Dur : 098 ms QT Int : 416 ms P-R-T Axes : 000 024 176 degrees QTc Int : 452 ms ATRIAL FIBRILLATION INCOMPLETE RIGHT BUNDLE BRANCH BLOCK ABNORMAL ECG WHEN COMPARED WITH ECG OF 01-NOV-2018 17:43, NONSPECIFIC T WAVE ABNORMALITY, IMPROVED IN INFERIOR LEADS INVERTED T WAVES HAVE REPLACED NONSPECIFIC T WAVE ABNORMALITY IN ANTEROLATERAL LEADS QT HAS SHORTENED Confirmed by CARLEEN HURST MD ([id number]) on 11/16/2018 9:12:23 AM Referred By: Confirmed By:CARLEEN HURST MD
[2018-11-16 09:28] LABS: RATIO URIN PROTEIN/URIN CREAT 0.22 MG/DL
[2018-11-16] MEDS ORDERED: ASPIRIN COATED 81 MG TABLET.EC PO SCH (10:00)
[2018-11-16] MEDS ORDERED: PATIENT'S OWN MEDICATION (NON-FORMULARY) (Umeclidinium Bromide [Incruse Ellipta] 62.5 MCG) IH SCH (10:00)
[2018-11-16] MEDS ORDERED: LORATADINE 10 MG TABLET PO SCH (10:00)
[2018-11-16] MEDS ORDERED: FEBUXOSTAT 40 MG TAB PO SCH (10:00)
--- NOTE | 2018-11-16 10:02 | PN ---
Progress Note, Physician Chief Complaint: Rectal bleed History of Present Illness: NAD eating breakfast, pleasantly confused Seen by GI and Nephrology started on iv abx for possible UTI UC pending - Current Medication List Current Medications: Active Medications Acetaminophen (Tylenol -) 650 mg PO Q4H PRN PRN Reason: PAIN OR FEVER Albuterol Sulfate (Ventolin 0.083% Nebulizer Soln -) 1 amp NEB Q4H PRN PRN Reason: SHORTNESS OF BREATH Apixaban (Eliquis -) 2.5 mg PO BID [facility] Last Admin: 11/15/18 22:18 Dose: 2.5 mg Aspirin (Ecotrin -) 81 mg PO DAILY [facility] Budesonide/Formoterol Fumarate (Symbicort 160/4.5mcg -) 2 puff IH DAILY [facility] Last Admin: 11/15/18 11:02 Dose: 2 puff Docusate Sodium (Colace -) 300 mg PO HS [facility] Last Admin: 11/15/18 22:18 Dose: 300 mg Febuxostat (Uloric -) 40 mg PO DAILY [facility] Ceftriaxone Sodium 1 gm/ (Dextrose) 50 mls @ 200 mls/hr IVPB DAILY [facility]; Protocol Last Admin: 11/15/18 14:21 Dose: 200 mls/hr Levothyroxine Sodium (Synthroid -) 75 mcg PO DAILY@0700 [facility] Last Admin: 11/16/18 06:27 Dose: 75 mcg Lidocaine (Lidoderm Patch -) 1 patch TP DAILY [facility] Last Admin: 11/15/18 22:09 Dose: Not Given Loratadine (Claritin -) 10 mg PO DAILY [facility] Metoclopramide HCl (Reglan -) 5 mg PO TIDAC [facility] Last Admin: 11/16/18 06:27 Dose: 5 mg Mirtazapine (Remeron -) 15 mg PO HS [facility] Last Admin: 11/15/18 22:18 Dose: 15 mg Miscellaneous (Lidoderm Patch Removal) 1 each MC DAILY@2200 [facility] Multivitamins/Minerals/Vitamin C (Tab-A-Vit -) 1 tab PO DAILY [facility] Last Admin: 11/15/18 11:03 Dose: 1 tab Mupirocin (Bactroban 2% Cream -) 1 applic TP BID [facility] Last Admin: 11/15/18 22:19 Dose: 1 applic Non-Formulary Medication (Umeclidinium [place] [Incruse Ellipta]) 62.5 mcg IH DAILY [facility] Nystatin/Triamcinolone Acetonide (Mycolog Ii Ointment -) 1 applic TP BID [facility] Last Admin: 11/15/18 22:18 Dose: 1 applic Risperidone (Risperdal -) 0.5 mg PO BID [facility] Last Admin: 11/15/18 22:18 Dose: 0.5 mg Sertraline HCl (Zoloft -) 50 mg PO DAILY [facility] Last Admin: 11/15/18 11:03 Dose: 50 mg - Objective Vital Signs: Vital Signs Temperature 97.7 F 11/16/18 02:00 Pulse Rate 114 H 11/16/18 02:00 Respiratory Rate 18 11/16/18 02:00 Blood Pressure 146/95 11/16/18 02:00 O2 Sat by Pulse Oximetry (%) 96 11/15/18 21:00 Constitutional: Yes: Well Nourished, No Distress, Calm Cardiovascular: Yes: Regular Rate and Rhythm Respiratory: Yes: Regular Gastrointestinal: Yes: WNL Genitourinary: Yes: Incontinence Musculoskeletal: Yes: WNL Extremities: Yes: WNL Edema: No Peripheral Pulses WNL: Yes Neurological: Yes: Alert, Confusion, Pre-Existing Deficit Psychiatric: Yes: Alert Labs: CBC, BMP 11/16/18 06:25 11/16/18 06:25 INR, PTT INR 1.74 (0.83-1.09) H 11/14/18 14:20 Fibrinogen 440.0 mg/dL (238-498) 11/14/18 14:20 Problem List - Problems (1) CARIN (acute kidney injury) Assessment/Plan: -nephrology on board -U/S renal -Await UC -IV abx for possible UTI-e coli in the past -Monitor trend Code(s): N17.9 - ACUTE KIDNEY FAILURE, UNSPECIFIED (2) Rectal bleed Assessment/Plan: -no overt bleeding -Seen by GI -Daughter doesn't want any aggressive measures -Avoid constipation Code(s): K62.5 - HEMORRHAGE OF ANUS AND RECTUM (3) UTI (urinary tract infection) Assessment/Plan: -UC pending -Cr trending down -ID consult pending Code(s): N39.0 - URINARY TRACT INFECTION, SITE NOT SPECIFIED Qualifiers: Urinary tract infection type: acute cystitis Hematuria presence: without hematuria Qualified Code(s): N30.00 - Acute cystitis without hematuria Assessment/Plan see problem list Physical therapy
[2018-11-16] MEDS ORDERED: DEXTROSE 5%-WATER - 50 ML IVPB ONE (10:51)
[2018-11-16] MEDS ORDERED: cefTRIAXone SODIUM 1 GM VIAL ONE (10:51)
[2018-11-16] MEDS ORDERED: PT OWN MED DRAWER 7, Y5N ONE ×2 (10:51→21:44)
[2018-11-16] MEDS: CEFTRIAXONE 1 GM in DEXTROSE 5%-WATER - 50 ML IVPB SCH (10:54)
[2018-11-16] MEDS: risperiDONE 0.5 MG TABLET (FP) PO SCH ×2 (10:54→21:46)
[2018-11-16] MEDS: BUDESONIDE/FORMETEROL FUMARATE 160/4.5 mcg INHALER IH SCH (10:54)
[2018-11-16] MEDS: SERTRALINE HCL 50 MG TABLET (FP) PO SCH (10:54)
[2018-11-16] MEDS: APIXABAN 2.5 MG TABLET PO SCH ×2 (10:54→21:45)
[2018-11-16] MEDS: LIDOCAINE 5% TOPICAL PATCH TP SCH (10:55)
[2018-11-16] MEDS: NYSTATIN/TRIAMCINOLONE TOPICAL OINTMENT 15 GM TUBE TP SCH ×2 (10:55→21:50)
[2018-11-16] MEDS: MULTIVITAMINS (DAILY MVI) TABLET (FP) PO SCH (10:55)
[2018-11-16] MEDS: MUPIROCIN CA 2% TOPICAL CREAM 15 GM TUBE TP SCH ×2 (11:00→21:51)
--- NOTE | 2018-11-16 11:41 | PN ---
Progress Note (short form) - Note Progress Note: RENAL Pt is awake and alert comfortable denies complaints Last Vital Signs Temp Pulse Resp BP Pulse Ox 97.7 F 114 H 18 146/95 96 11/16/18 02:00 11/16/18 02:00 11/16/18 02:00 11/16/18 02:00 11/15/18 21:00 lungs clear anteriorly cvs s1s2 rr'abd soft ext no edema neuro a+ox3 CBC, BMP 11/16/18 06:25 11/16/18 06:25 Current Medications Generic Name Dose Route Start Last Admin Trade Name Freq PRN Reason Stop Dose Admin Acetaminophen 650 mg 11/15/18 19:17 Tylenol - PO Q4H PRN PAIN OR FEVER Albuterol Sulfate 1 amp 11/15/18 06:58 Ventolin 0.083% Nebulizer Soln - NEB Q4H PRN SHORTNESS OF BREATH Apixaban 2.5 mg 11/15/18 22:00 11/16/18 10:54 Eliquis - PO 2.5 mg BID MINGO Administration Aspirin 81 mg 11/16/18 10:00 11/16/18 10:53 Ecotrin - PO 81 mg DAILY MINGO Administration Budesonide/Formoterol Fumarate 2 puff 11/15/18 10:00 11/16/18 10:54 Symbicort 160/4.5mcg - IH 2 puff DAILY [facility]O Administration Docusate Sodium 300 mg 11/15/18 22:00 11/15/18 22:18 Colace - PO 300 mg HS M[facility]O Administration Febuxostat 40 mg 11/16/18 10:00 11/16/18 10:54 Uloric - PO 40 mg DAILY [facility] Administration Ceftriaxone Sodium 1 gm/ 50 mls @ 200 mls/hr 11/15/18 14:00 11/16/18 10:54 Dextrose IVPB 200 mls/hr DAILY [facility] Administration Protocol Levothyroxine Sodium 75 mcg 11/15/18 07:00 11/16/18 06:27 Synthroid - PO 75 mcg DAILY@0700 [facility] Administration Lidocaine 1 patch 11/15/18 19:30 11/16/18 10:55 Lidoderm Patch - TP 1 patch DAILY [facility] Administration Loratadine 10 mg 11/16/18 10:00 11/16/18 10:53 Claritin - PO 10 mg DAILY [facility] Administration Metoclopramide HCl 5 mg 11/15/18 19:30 11/16/18 10:54 Reglan - PO 5 mg TIDAC [facility] Administration Mirtazapine 15 mg 11/15/18 22:00 11/15/18 22:18 Remeron - PO 15 mg HS [facility] Administration Miscellaneous 1 each 11/15/18 22:00 Lidoderm Patch Removal MC DAILY@2200 [facility] Multivitamins/Minerals/Vitamin C 1 tab 11/15/18 10:00 11/16/18 10:55 Tab-A-Vit - PO 1 tab DAILY [facility] Administration Mupirocin 1 applic 11/15/18 10:00 11/15/18 22:19 Bactroban 2% Cream - TP 1 applic BID [facility] Administration Non-Formulary Medication 62.5 mcg 11/16/18 10:00 Umeclidinium [place] [Incruse Ellipta] IH DAILY [facility] Nystatin/Triamcinolone Acetonide 1 applic 11/15/18 22:00 11/16/18 10:55 Mycolog Ii Ointment - TP 1 applic BID [facility] Administration Risperidone 0.5 mg 11/15/18 10:00 11/16/18 10:54 Risperdal - PO 0.5 mg BID [facility] Administration Sertraline HCl 50 mg 11/15/18 10:00 11/16/18 10:54 Zoloft - PO 50 mg DAILY [facility] Administration IMPRESSION CARIN on CKD recurrent urinary tract infections. Previously had E Coli but also had Klebsiella ESBL recent GI bleeding falls hypothyroid PLAN would continue ceftriaxone renal function back to baseline no need to obtain renal sono, she already had ct scan avoid nephrotoxins and hypotension MV
[2018-11-16] MEDS ORDERED: ACETAMINOPHEN 325 MG TABLET (FP) PO PRN (12:16)
[2018-11-16] MEDS ORDERED: LIDOCAINE PATCH REMOVAL MC SCH (12:16)
[2018-11-16] MEDS ORDERED: ALBUTEROL SO4 0.083% IH SOL 2.5 MG/3 ML VIAL.NEB. NEB PRN (12:16)
--- NOTE | 2018-11-16 14:18 | CONS ---
INFECTIOUS DISEASE CONSULTATION DATE OF CONSULTATION: DATE OF DICTATION: 11/16/2018 HISTORY OF PRESENT ILLNESS: The patient is an 82-year-old female evaluated for urinary tract infection. History is obtained from the chart as she suffers from dementia and cannot give a history. The patient was admitted to the hospital on November 14, 2018, with rectal bleeding. She had a CAT scan of the abdomen and pelvis which was reported as negative. She was seen in consultation by GI. The patient was noted to have some pyuria and a positive urine culture for lactose- and nonlactose-fermenters. She has a history of ESBL from a urine culture in 2013. At the present time she is awake and alert. She offers no complaints. The patient suffers from dementia. She denies any dysuria or hematuria. No reported fever or chills with white blood cell count normal. PAST MEDICAL HISTORY: Positive for dementia, hypothyroidism, congestive heart failure, atrial fibrillation, recurrent urinary tract infections. ALLERGIES: None known. LABORATORY DATA: White count 7.3, hematocrit 33.2, platelet count 171. Creatinine 1.3. Urinalysis 53 white cells. Chest x-ray: Negative. Blood cultures preliminarily negative. PHYSICAL EXAMINATION:General: She is awake and alert, seated in bed. She is not acutely toxic-appearing, in no acute distress. Vital Signs: Temperature 98.4. Blood pressure 156/88. Pulse 108, regular. Respirations 18 per minute. HEENT: Sclerae are anicteric. Heart Sounds: S1, S2. Lungs: Clear. Abdomen: Soft. No suprapubic tenderness. Extremities: Negative for edema. IMPRESSION: 1. Recurrent urinary tract infection. 2. Rectal bleeding. 3. History of extended spectrum beta-lactamase (ESBL) in the urine. 4. Dementia. PLAN: Pending identification of urine isolate, continue ceftriaxone. If stable, switch to oral antibiotic therapy next 24 hours. Thank you for the kind referral. CHANTAL CHONG M.D. [id number]
[2018-11-16] MEDS: MIRTAZAPINE 15 MG TABLET (FP) PO SCH (21:45)
[2018-11-16] MEDS: DOCUSATE SODIUM 100 MG CAPSULE (FP) PO SCH (21:46)
[2018-11-16] MEDS: LIDOCAINE PATCH REMOVAL MC SCH (22:30)
[2018-11-17] MEDS: METOCLOPRAMIDE HCL 10 MG TABLET (FP) PO SCH ×3 (06:04→16:55)
[2018-11-17] MEDS: LEVOTHYROXINE NA 75 MCG TABLET (FP) PO SCH (06:05)
--- NOTE | 2018-11-17 08:16 | PN.GI ---
GI Progress Note Subjective: As per RN no reports of rectal bleeding, blood in stool, or melena during the night. Labs from 11/16/[address] scan from 11/14 shows colonic diverticulosis without evidence of acute diverticulitis. Patient had EGD done in 2010 showing ulcers in antrum, gastritis, and hiatal hernia. - Objective Vital Signs: Vital Signs Temperature 98.9 F 11/17/18 06:00 Pulse Rate 114 H 11/17/18 06:00 Respiratory Rate 20 11/17/18 06:00 Blood Pressure 141/92 11/17/18 06:00 O2 Sat by Pulse Oximetry (%) 97 11/16/18 21:00 Constitutional: No Distress, Calm Eyes: Yes: Conjunctiva Clear HENT: Yes: Atraumatic Cardiovascular: Yes: Pulse Irregular Respiratory: Yes: Regular, CTA Bilaterally Gastrointestinal Inspection: Yes: WNL. No: Ascites, Distention, Hernia, Scars, Other ...Auscultate: Yes: Normoactive Bowel Sounds. No: Hyperactive Bowel Sounds, Hypoactive Bowel Sounds, No Bowel Sounds, Other ...Palpate: Yes: Soft, Tenderness (diffuse) ...Percussion: Yes: Tympanitic. No: Dullness, Fluid Wave, Other Neurological: Yes: Alert Psychiatric: Yes: Alert, Oriented (to name and location, does not know time) Labs: CBC, BMP 11/16/18 06:25 11/16/18 06:25 INR, PTT INR 1.74 (0.83-1.09) H 11/14/18 14:20 Fibrinogen 440.0 mg/dL (238-498) 11/14/18 14:20 Active Medications Generic Name Dose Route Start Last Admin Trade Name Freq PRN Reason Stop Dose Admin Acetaminophen 650 mg 11/16/18 12:16 Tylenol - PO Q4H PRN FEVER Albuterol Sulfate 1 amp 11/16/18 12:16 Ventolin 0.083% Nebulizer Soln - NEB Q4H PRN SHORTNESS OF BREATH Apixaban 2.5 mg 11/16/18 22:00 11/16/18 21:45 Eliquis - PO 2.5 mg BID MINGO Administration Aspirin 81 mg 11/17/18 10:00 Ecotrin - PO DAILY [facility] Budesonide/Formoterol Fumarate 2 puff 11/17/18 10:00 Symbicort 160/4.5mcg - IH DAILY [facility] Docusate Sodium 300 mg 11/16/18 22:00 11/16/18 21:46 Colace - PO 300 mg HS [facility] Administration Febuxostat 40 mg 11/17/18 10:00 Uloric - PO DAILY [facility] Ceftriaxone Sodium 1 gm/ 50 mls @ 200 mls/hr 11/17/18 10:00 Dextrose IVPB DAILY [facility] Protocol Levothyroxine Sodium 75 mcg 11/17/18 07:00 11/17/18 06:05 Synthroid - PO 75 mcg DAILY@0700 [facility] Administration Lidocaine 1 patch 11/17/18 10:00 Lidoderm Patch - TP DAILY [facility] Loratadine 10 mg 11/17/18 10:00 Claritin - PO DAILY [facility] Metoclopramide HCl 5 mg 11/16/18 16:30 11/17/18 06:04 Reglan - PO 5 mg TIDAC [facility] Administration Mirtazapine 15 mg 11/16/18 22:00 11/16/18 21:45 Remeron - PO 15 mg HS [facility] Administration Miscellaneous 1 each 11/16/18 22:00 Lidoderm Patch Removal MC DAILY@2200 [facility] Multivitamins/Minerals/Vitamin C 1 tab 11/17/18 10:00 Tab-A-Vit - PO DAILY [facility] Mupirocin 1 applic 11/16/18 22:00 11/16/18 21:51 Bactroban 2% Cream - TP 1 applic BID [facility] Administration Non-Formulary Medication 62.5 mcg 11/17/18 10:00 Umeclidinium [place] [Incruse Ellipta] IH DAILY [facility] Nystatin/Triamcinolone Acetonide 1 applic 11/16/18 22:00 11/16/18 21:50 Mycolog Ii Ointment - TP 1 applic BID [facility] Administration Risperidone 0.5 mg 11/16/18 22:00 11/16/18 21:46 Risperdal - PO 0.5 mg BID [facility] Administration Sertraline HCl 50 mg 11/17/18 10:00 Zoloft - PO DAILY [facility] - ....Imaging Cat Scan: Report Reviewed Problem List - Problems (1) Rectal bleed Assessment/Plan: >current Hg stable 11.1 >monitor Hg and transfuse for Hg <8.0 >as per RN patient daughter does not want further testing or aggressive treatment Code(s): K62.5 - HEMORRHAGE OF ANUS AND RECTUM
[2018-11-17] MEDS ORDERED: PATIENT'S OWN MEDICATION (NON-FORMULARY) (Umeclidinium Bromide [Incruse Ellipta] 62.5 MCG) IH SCH (10:00)
[2018-11-17] MEDS ORDERED: cefTRIAXone SODIUM 1 GM VIAL ONE (11:02)
[2018-11-17] MEDS ORDERED: DEXTROSE 5%-WATER - 50 ML IVPB ONE (11:02)
[2018-11-17] MEDS: LIDOCAINE 5% TOPICAL PATCH TP SCH (11:06)
[2018-11-17] MEDS: CEFTRIAXONE 1 GM in DEXTROSE 5%-WATER - 50 ML IVPB SCH (11:07)
[2018-11-17] MEDS: risperiDONE 0.5 MG TABLET (FP) PO SCH ×2 (11:11→23:00)
[2018-11-17] MEDS: APIXABAN 2.5 MG TABLET PO SCH ×2 (11:11→22:33)
[2018-11-17] MEDS: MULTIVITAMINS (DAILY MVI) TABLET (FP) PO SCH (11:12)
[2018-11-17] MEDS: LORATADINE 10 MG TABLET PO SCH (11:12)
[2018-11-17] MEDS: ASPIRIN COATED 81 MG TABLET.EC PO SCH (11:12)
[2018-11-17] MEDS: FEBUXOSTAT 40 MG TAB PO SCH (11:13)
[2018-11-17] MEDS: BUDESONIDE/FORMETEROL FUMARATE 160/4.5 mcg INHALER IH SCH (11:13)
[2018-11-17] MEDS: NYSTATIN/TRIAMCINOLONE TOPICAL OINTMENT 15 GM TUBE TP SCH ×2 (11:14→22:50)
[2018-11-17] MEDS: SERTRALINE HCL 50 MG TABLET (FP) PO SCH (11:14)
--- NOTE | 2018-11-17 15:07 | PN ---
Progress Note, Physician Chief Complaint: patient seen and examined no distress admitted for recta bleed h/h stable has UTI on contact for kleb ESBL in past - Current Medication List Current Medications: Active Medications Acetaminophen (Tylenol -) 650 mg PO Q4H PRN PRN Reason: FEVER Albuterol Sulfate (Ventolin 0.083% Nebulizer Soln -) 1 amp NEB Q4H PRN PRN Reason: SHORTNESS OF BREATH Apixaban (Eliquis -) 2.5 mg PO BID [facility] Last Admin: 11/17/18 11:11 Dose: 2.5 mg Aspirin (Ecotrin -) 81 mg PO DAILY [facility] Last Admin: 11/17/18 11:12 Dose: 81 mg Budesonide/Formoterol Fumarate (Symbicort 160/4.5mcg -) 2 puff IH DAILY [facility] Last Admin: 11/17/18 11:13 Dose: 2 puff Docusate Sodium (Colace -) 300 mg PO [facility] Last Admin: 11/16/18 21:46 Dose: 300 mg Febuxostat (Uloric -) 40 mg PO DAILY [facility] Last Admin: 11/17/18 11:13 Dose: 40 mg Ceftriaxone Sodium 1 gm/ (Dextrose) 50 mls @ 200 mls/hr IVPB DAILY [facility]; Protocol Last Admin: 11/17/18 11:07 Dose: 200 mls/hr Levothyroxine Sodium (Synthroid -) 75 mcg PO DAILY@0700 [facility] Last Admin: 11/17/18 06:05 Dose: 75 mcg Lidocaine (Lidoderm Patch -) 1 patch TP DAILY [facility] Last Admin: 11/17/18 11:06 Dose: 1 patch Loratadine (Claritin -) 10 mg PO DAILY [facility] Last Admin: 11/17/18 11:12 Dose: 10 mg Metoclopramide HCl (Reglan -) 5 mg PO TIDAC [facility] Last Admin: 11/17/18 11:10 Dose: 5 mg Mirtazapine (Remeron -) 15 mg PO HS [facility] Last Admin: 11/16/18 21:45 Dose: 15 mg Miscellaneous (Lidoderm Patch Removal) 1 each MC DAILY@2200 [facility] Multivitamins/Minerals/Vitamin C (Tab-A-Vit -) 1 tab PO DAILY [facility] Last Admin: 11/17/18 11:12 Dose: 1 tab Mupirocin (Bactroban 2% Cream -) 1 applic TP BID [facility] Last Admin: 11/16/18 21:51 Dose: 1 applic Non-Formulary Medication (Umeclidinium [place] [Incruse Ellipta]) 62.5 mcg IH DAILY [facility] Nystatin/Triamcinolone Acetonide (Mycolog Ii Ointment -) 1 applic TP BID [facility] Last Admin: 11/17/18 11:14 Dose: 1 applic Risperidone (Risperdal -) 0.5 mg PO BID [facility] Last Admin: 11/17/18 11:11 Dose: 0.5 mg Sertraline HCl (Zoloft -) 50 mg PO DAILY [facility] Last Admin: 11/17/18 11:14 Dose: 50 mg - Objective Vital Signs: Vital Signs Temperature 97.9 F 11/17/18 14:50 Pulse Rate 109 H 11/17/18 14:50 Respiratory Rate 20 11/17/18 14:50 Blood Pressure 157/79 11/17/18 14:50 O2 Sat by Pulse Oximetry (%) 97 11/16/18 21:00 Constitutional: Yes: Calm, Thin Cardiovascular: Yes: Regular Rate and Rhythm, S1, S2 Respiratory: Yes: CTA Bilaterally Gastrointestinal: Yes: Normal Bowel Sounds, Soft Genitourinary: Yes: [place] Present Edema: No Neurological: Yes: Alert Labs: CBC, BMP 11/16/18 06:25 11/16/18 06:25 INR, PTT INR 1.74 (0.83-1.09) H 11/14/18 14:20 Fibrinogen 440.0 mg/dL (238-498) 11/14/18 14:20 Problem List - Problems (1) CARIN (acute kidney injury) Assessment/Plan: renal function improved Code(s): N17.9 - ACUTE KIDNEY FAILURE, UNSPECIFIED (2) Rectal bleed Assessment/Plan: h/h stable no more bleeding Code(s): K62.5 - HEMORRHAGE OF ANUS AND RECTUM (3) Hypothyroidism Assessment/Plan: tsh ordered synthroid Code(s): E03.9 - HYPOTHYROIDISM, UNSPECIFIED (4) UTI (urinary tract infection) Assessment/Plan: iv abx Code(s): N39.0 - URINARY TRACT INFECTION, SITE NOT SPECIFIED Qualifiers: Urinary tract infection type: acute cystitis Hematuria presence: without hematuria Qualified Code(s): N30.00 - Acute cystitis without hematuria
[2018-11-17] MEDS: MUPIROCIN CA 2% TOPICAL CREAM 15 GM TUBE TP SCH ×2 (16:55→22:48)
--- NOTE | 2018-11-17 17:41 | PN ---
Progress Note, Physician History of Present Illness: AWAKE, ALERT OFFERS NO COMPLAINTS AFEBRILE WBC IMPROVED AZOTEMIA IMPROVED BC (-) - Current Medication List Current Medications: Active Medications Acetaminophen (Tylenol -) 650 mg PO Q4H PRN PRN Reason: FEVER Albuterol Sulfate (Ventolin 0.083% Nebulizer Soln -) 1 amp NEB Q4H PRN PRN Reason: SHORTNESS OF BREATH Apixaban (Eliquis -) 2.5 mg PO BID [facility] Last Admin: 11/17/18 11:11 Dose: 2.5 mg Aspirin (Ecotrin -) 81 mg PO DAILY [facility] Last Admin: 11/17/18 11:12 Dose: 81 mg Budesonide/Formoterol Fumarate (Symbicort 160/4.5mcg -) 2 puff IH DAILY [facility] Last Admin: 11/17/18 11:13 Dose: 2 puff Docusate Sodium (Colace -) 300 mg PO HS [facility] Last Admin: 11/16/18 21:46 Dose: 300 mg Febuxostat (Uloric -) 40 mg PO DAILY [facility] Last Admin: 11/17/18 11:13 Dose: 40 mg Ceftriaxone Sodium 1 gm/ (Dextrose) 50 mls @ 200 mls/hr IVPB DAILY [facility]; Protocol Last Admin: 11/17/18 11:07 Dose: 200 mls/hr Levothyroxine Sodium (Synthroid -) 75 mcg PO DAILY@0700 [facility] Last Admin: 11/17/18 06:05 Dose: 75 mcg Lidocaine (Lidoderm Patch -) 1 patch TP DAILY [facility] Last Admin: 11/17/18 11:06 Dose: 1 patch Loratadine (Claritin -) 10 mg PO DAILY [facility] Last Admin: 11/17/18 11:12 Dose: 10 mg Metoclopramide HCl (Reglan -) 5 mg PO TIDAC [facility] Last Admin: 11/17/18 16:55 Dose: 5 mg Mirtazapine (Remeron -) 15 mg PO HS [facility] Last Admin: 11/16/18 21:45 Dose: 15 mg Miscellaneous (Lidoderm Patch Removal) 1 each MC DAILY@2200 [facility] Multivitamins/Minerals/Vitamin C (Tab-A-Vit -) 1 tab PO DAILY [facility] Last Admin: 11/17/18 11:12 Dose: 1 tab Mupirocin (Bactroban 2% Cream -) 1 applic TP BID [facility] Last Admin: 11/17/18 16:55 Dose: 1 applic Non-Formulary Medication (Umeclidinium [place] [Incruse Ellipta]) 62.5 mcg IH DAILY [facility] Nystatin/Triamcinolone Acetonide (Mycolog Ii Ointment -) 1 applic TP BID [facility] Last Admin: 11/17/18 11:14 Dose: 1 applic Risperidone (Risperdal -) 0.5 mg PO BID [facility] Last Admin: 11/17/18 11:11 Dose: 0.5 mg Sertraline HCl (Zoloft -) 50 mg PO DAILY [facility] Last Admin: 11/17/18 11:14 Dose: 50 mg - Objective Vital Signs: Vital Signs Temperature 97.9 F 11/17/18 14:50 Pulse Rate 109 H 11/17/18 14:50 Respiratory Rate 20 11/17/18 14:50 Blood Pressure 157/79 11/17/18 14:50 O2 Sat by Pulse Oximetry (%) 97 11/16/18 21:00 Constitutional: Yes: No Distress Cardiovascular: Yes: Regular Rate and Rhythm, S1, S2 Gastrointestinal: Yes: Normal Bowel Sounds, Soft Edema: No Labs: CBC, BMP 11/16/18 06:25 11/16/18 06:25 INR, PTT INR 1.74 (0.83-1.09) H 11/14/18 14:20 Fibrinogen 440.0 mg/dL (238-498) 11/14/18 14:20 Assessment/Plan RECURRENT UTI RECTAL BLEEDING AZOTEMIA IMPROVED OBS SUBSTITUTE LEVAQUIN 250MG PO QD X 7D
[2018-11-17] MEDS ORDERED: PT OWN MED DRAWER 7, Y5N ONE (22:30)
[2018-11-17] MEDS: MIRTAZAPINE 15 MG TABLET (FP) PO SCH (22:32)
[2018-11-17] MEDS: DOCUSATE SODIUM 100 MG CAPSULE (FP) PO SCH (22:33)
[2018-11-17] MEDS: LIDOCAINE PATCH REMOVAL MC SCH (22:47)
[2018-11-18] MEDS: METOCLOPRAMIDE HCL 10 MG TABLET (FP) PO SCH (06:12)
[2018-11-18] MEDS: LEVOTHYROXINE NA 75 MCG TABLET (FP) PO SCH (06:12)
[2018-11-18 06:18] VITALS: TEMP 97.8
[2018-11-18 08:13] LABS: ALBUMIN 2.8 g/dl (3.4-5.0); BLOOD UREA NITROGEN 21.6 mg/dL (7-18); CREATININE 1.2 mg/dL (0.55-1.3); POTASSIUM 4.3 mmol/L (3.5-5.1); TOT PROT 6.7 g/dl (6.4-8.2)
[2018-11-18] MEDS ORDERED: cefTRIAXone SODIUM 1 GM VIAL ONE (08:16)
[2018-11-18] MEDS ORDERED: DEXTROSE 5%-WATER - 50 ML IVPB ONE (08:17)
--- NOTE | 2018-11-18 08:57 | DS ---
Physical Examination Vital Signs: Vital Signs Temperature 97.8 F 11/18/18 06:00 Pulse Rate 97 H 11/18/18 06:00 Respiratory Rate 20 11/18/18 06:00 Blood Pressure 147/74 11/18/18 06:00 O2 Sat by Pulse Oximetry (%) 97 11/17/18 21:00 Constitutional: Yes: Other Cardiovascular: Yes: Pulse Irregular Respiratory: Yes: WNL Gastrointestinal: Yes: Soft Renal/: Yes: Incontinence Musculoskeletal: Yes: Muscle Weakness Edema: No Labs: CBC, BMP 11/16/18 06:25 11/18/18 07:10 Discharge Summary Reason For Visit: ACUTE KIDNEY INJURY GASTROINTESTINAL HEMORRHAGE Current Active Problems CARIN (acute kidney injury) (Acute) Acute kidney injury superimposed on CKD (Acute) GI bleed (Acute) Rectal bleed (Acute) Procedures: Principal: CT ABD/PELVIS AND SONO Hospital Course: ADMITTED FOR UTI, TOXIC METABOLIC ENCEPHALOPATHY TREATED WITH ABX IV CHANGED TO PO, EVALUATED BY GI FOR BLEED, NO FURTHER PROCEDURES, F/U OUTPATIENT Condition: Stable - Instructions Diet, Activity, Other Instructions: SEE YOUR DOCTOR IN 1 WEEK LEVAQUIN 250MG DAILY X 7 DAYS Disposition: VNS/HOME HEALTH CARE - Home Medications Comprehensive Discharge Medication List: Ambulatory Orders Aspirin [Aspirin EC] 81 mg PO DAILY 03/08/16 Dexlansoprazole [Dexilant] 60 mg PO DAILY 03/08/16 Febuxostat [Uloric -] 40 mg PO DAILY 03/08/16 Metoprolol Tartrate [Lopressor] 100 mg PO BID 03/08/16 Multivitamins [Multivit ([facility] Formulary)] 1 tab PO DAILY 03/08/16 Sertraline HCl [Zoloft -] 50 mg PO DAILY 03/08/16 Doxycycline Hyclate [Vibramycin -] 100 mg PO BID@1000,1800 #10 tab MDD 2 Mupirocin Cream [Bactroban 2% Cream -] 1 applic TP BID #1 tube MDD 2 08/23/17 Albuterol 0.083% Nebulizer [place] [Ventolin 0.083%] 1 neb NEB Q4H PRN 03/03/18 Budesonide/Formeterol Fumarate [SYMBICORT 160/4.5mcg -] 2 inh PO DAILY 03/03/18 Levothyroxine [Synthroid -] 75 mcg PO DAILY@0700 MDD 1 03/03/18 Mirtazapine [Remeron -] 15 mg PO HS 03/03/18 Risperidone [Risperdal -] 0.5 mg PO BID 03/03/18 Albuterol 0.083% Nebulizer [place] 0.083 neb PRN PRN 11/15/18 Apixaban [Eliquis] 2.5 mg PO BID 11/15/18 Docusate Sodium [Colace] 200 mg PO HS 11/15/18 Furosemide [Lasix] 40 mg PO DAILY 11/15/18 Lidocaine 17 adh.patch TD PRN 11/15/18 Loratadine [Claritin -] 10 mg PO DAILY 11/15/18 Metoclopramide HCl [Reglan] 5 mg PO ACDIN 11/15/18 Mirabegron [Myrbetriq] 25 mg PO DAILY 11/15/18 Nystatin/Triamcin [Nystatin-Triamcinolone Cream] 15 gm TD BID 11/15/18 Umeclidinium [place] [Incruse Ellipta] 62.5 mcg IH DAILY 11/15/18
[2018-11-18] MEDS: LIDOCAINE 5% TOPICAL PATCH TP SCH (09:41)
[2018-11-18] MEDS: MULTIVITAMINS (DAILY MVI) TABLET (FP) PO SCH (09:41)
[2018-11-18] MEDS: LORATADINE 10 MG TABLET PO SCH (09:41)
[2018-11-18] MEDS: ASPIRIN COATED 81 MG TABLET.EC PO SCH (09:41)
[2018-11-18] MEDS: FEBUXOSTAT 40 MG TAB PO SCH (09:41)
[2018-11-18] MEDS: APIXABAN 2.5 MG TABLET PO SCH (09:42)
[2018-11-18] MEDS: SERTRALINE HCL 50 MG TABLET (FP) PO SCH (09:42)
[2018-11-18] MEDS: risperiDONE 0.5 MG TABLET (FP) PO SCH (09:42)
[2018-11-18] MEDS: NYSTATIN/TRIAMCINOLONE TOPICAL OINTMENT 15 GM TUBE TP SCH (09:44)
[2018-11-18] MEDS: BUDESONIDE/FORMETEROL FUMARATE 160/4.5 mcg INHALER IH SCH (09:44)
[2018-11-18] MEDS: CEFTRIAXONE 1 GM in DEXTROSE 5%-WATER - 50 ML IVPB SCH (09:44)
[2018-11-18] MEDS: MUPIROCIN CA 2% TOPICAL CREAM 15 GM TUBE TP SCH (09:45)
[2018-11-18 10:52] VITALS: BP 137/75; PULSE 101
--- NOTE | 2018-11-18 15:13 | PN ---
Progress Note, Physician History of Present Illness: Pt seen and examined at bedside. She is awake and appears comfortable. - Objective Vital Signs: Vital Signs Temperature 97.8 F 11/18/18 06:00 Pulse Rate 101 H 11/18/18 10:00 Respiratory Rate 18 11/18/18 10:00 Blood Pressure 137/75 11/18/18 10:00 O2 Sat by Pulse Oximetry (%) 96 11/18/18 09:00 Constitutional: Yes: Calm Eyes: Yes: Conjunctiva Clear HENT: Yes: Atraumatic Neck: Yes: Supple Cardiovascular: Yes: S1, S2 Respiratory: Yes: CTA Bilaterally Gastrointestinal: Yes: Soft Genitourinary: Yes: WNL Musculoskeletal: Yes: WNL Edema: No Neurological: Yes: Oriented Psychiatric: Yes: Oriented Labs: CBC, BMP 11/16/18 06:25 11/18/18 07:10 INR, PTT INR 1.74 (0.83-1.09) H 11/14/18 14:20 Fibrinogen 440.0 mg/dL (238-498) 11/14/18 14:20 Assessment/Plan Impression CARIN CKD UTI hx GI bleed hypothyroid Plan - renal function is improved - renal ultrasound reviewed - abx per primary team - avoid nephrotoxins and nsaids
== END 2018-11-18 13:17 | disposition home health service (06) | DRG 377 ==
LOC: JER 13:20 → JERBED 17:52 → J4S 20:44 → J6S 11-16 11:57
PROVIDERS: ADMIT Family Medicine; ATTEND Family Medicine
DX: K62.5 Hemorrhage of anus and rectum (principal); G93.41 Metabolic encephalopathy; N17.9 Acute kidney failure, unspecified; N39.0 Urinary tract infection, site not specified; E03.9 Hypothyroidism, unspecified; F03.90 Unspecified dementia, unspecified severity, without behavioral disturbance, psychotic disturbance, mood disturbance, and anxiety; J45.909 Unspecified asthma, uncomplicated; I48.91 Unspecified atrial fibrillation; D50.9 Iron deficiency anemia, unspecified; F41.9 Anxiety disorder, unspecified; I45.10 Unspecified right bundle-branch block; M54.5 Low back pain; J44.9 Chronic obstructive pulmonary disease, unspecified; K57.90 Diverticulosis of intestine, part unspecified, without perforation or abscess without bleeding; R79.89 Other specified abnormal findings of blood chemistry; I95.9 Hypotension, unspecified; Z96.641 Presence of right artificial hip joint; Z99.81 Dependence on supplemental oxygen
CPT/HCPCS: 36415; 71045-TC-FY; 74176-TC; 76775-TC; 80048; 80053; 81003; 82272; 82565; 82570; 83605; 84156; 84300; 84443; 85025; 85384; 85610; 85730; 86850; 86900; 86901; 87040; 87081; 87086; 87186; 93005; 93010; 97116-GP; 97161-GP; 99285-25

== ENCOUNTER 2019-01-17 21:08 | Emergency (ER) | payer OTHER ==
[2019-01-17 22:06] LABS: BASO % 0.3 % (0-2.0); HEMATOCRIT 43.5 % (32.4-45.2); HEMOGLOBIN 14.9 GM/dL (10.7-15.3); LYMPH % 9.8 % (8-40); MCH 30.9 pg (25.7-33.7); MCHC 34.2 g/dl (32.0-36.0); MEAN CELL VOLUME 90.2 fl (80-96); MEAN PLT VOLUME 8.3 fl (7.5-11.1); MONO % 7.1 % (3.8-10.2); NEUT % 81.8 % (42.8-82.8); PLATELET COUNT 163 K/MM3 (134-434); RBC 4.82 M/mm3 (3.60-5.2); RDW 13.7 % (11.6-15.6)
[2019-01-17 22:11] LABS: INR 1.09 (0.83-1.09); PROTHROMBIN TIME (PATIENT) 12.9 SEC (9.7-13.0)
[2019-01-17 22:13] LABS: ACTIVATED PTT 34.6 SECONDS (25.2-36.5)
--- NOTE | 2019-01-17 22:13 | PDOC ---
History of Present Illness <María Winn - Last Filed: 01/18/19 00:21> - General History Source: Patient, Family (granddaughter) - History of Present Illness Initial Comments: 01/17/19 22:08 83 yo F PMH unspecified dementia, afib on Eliquis, hypothyroidism, multiple non- healing wounds (above L eyebrow, on L leg) for which she receives wound care, presenting after fall. Per granddaughter (who is also home health travel ot), she was helping the patient get from her wheelchair to her commode when they both fell backwards. Granddaughter states that patient did not hit her head or have any LOC, but does have a large laceration on her R forearm, with two smaller lacerations at elbow and hand. Patient is reportedly at her mental baseline ( AAOX2 to name and year). Patient does not have any complaints on ROS. <Yuval Peña - Last Filed: 01/18/19 00:44> - General Chief Complaint: Injury Stated Complaint: FALL Time Seen by Provider: 01/17/19 21:19 Past History <María Winn - Last Filed: 01/18/19 00:21> - Past Medical History Anemia: Yes (mild iron def) Asthma: Yes (HOME O2 3L PRN) Cancer: Yes (SKIN CA) Cardiac Disorders: Yes (AFIB) CVA: Yes (TIA) COPD: No CHF: Yes DVT: (sent today 06/23/14 to r/o lle dvt) Dementia: Yes Diabetes: No GI Disorders: No Disorders: Yes (FREQUENT UTI'S) HTN: Yes Hypercholesterolemia: No Liver Disease: No Psychiatric Problems: Yes (ANXIETY.) Seizures: No Thyroid Disease: Yes (HYPOTHYROIDISM) - Surgical History Abdominal Surgery: Yes Appendectomy: Yes Orthopedic Surgery: Yes (HIP REPLACEMENT, Left) - Immunization History Immunization Up to Date: Yes (allergic to flu shot) - Psycho Social/Smoking Cessation Hx Smoking Status: No Smoking History: Unknown if ever smoked Have you smoked in the past 12 months: No Number of Cigarettes Smoked Daily: 0 Hx Alcohol Use: No Drug/Substance Use Hx: No Substance Use Type: None Hx Substance Use Treatment: No <Yuval Peña - Last Filed: 01/18/19 00:44> - Past Medical History Allergies/Adverse Reactions: Allergies Allergy/AdvReac Type Severity Reaction Status Date / Time No Known Drug Allergies Allergy Verified 01/17/19 21:53 Home Medications: Ambulatory Orders Aspirin [Aspirin EC] 81 mg PO DAILY 03/08/16 Dexlansoprazole [Dexilant] 60 mg PO DAILY 03/08/16 Febuxostat [Uloric -] 40 mg PO DAILY 03/08/16 Metoprolol Tartrate [Lopressor] 100 mg PO BID 03/08/16 Multivitamins [Multivit ([facility] Formulary)] 1 tab PO DAILY 03/08/16 Sertraline HCl [Zoloft -] 50 mg PO DAILY 03/08/16 Mupirocin Cream [Bactroban 2% Cream -] 1 applic TP BID #1 tube MDD 2 08/23/17 Albuterol 0.083% Nebulizer Tracy [Ventolin 0.083% Nebulizer Soln -] 1 neb NEB Q4H PRN 03/03/18 Budesonide/Formeterol Fumarate [SYMBICORT 160/4.5mcg -] 2 inh PO DAILY 03/03/18 Levothyroxine [Synthroid -] 75 mcg PO DAILY@0700 MDD 1 03/03/18 Mirtazapine [Remeron -] 15 mg PO HS 03/03/18 Risperidone [Risperdal -] 0.5 mg PO BID 03/03/18 Albuterol 0.083% Nebulizer Tracy 0.083 neb PRN PRN 11/15/18 Apixaban [Eliquis] 2.5 mg PO BID 11/15/18 Docusate Sodium [Colace] 200 mg PO HS 11/15/18 Furosemide [Lasix] 40 mg PO DAILY 11/15/18 Lidocaine 17 adh.patch TD PRN 11/15/18 Loratadine [Claritin -] 10 mg PO DAILY 11/15/18 Nystatin/Triamcin [Nystatin-Triamcinolone Cream] 15 gm TD BID 11/15/18 Umeclidinium [place] [Incruse Ellipta] 62.5 mcg IH DAILY 11/15/18 Acetaminophen [Tylenol .Regular Strength -] 650 mg PO Q4H PRN tablet 11/18/18 Apixaban [Eliquis -] 2.5 mg PO BID tablet 11/18/18 Docusate Sodium [Colace -] 300 mg PO HS capsule 11/18/18 Nystatin/Triamcinolone [place] [Mycolog II -] 1 applic TP BID #90 applic levoFLOXacin [Levaquin -] 250 mg PO DAILY 7 Days #7 tablet 11/18/18 Review of Systems - Review of Systems Able to Perform ROS?: No (dementia) <Yuval Peña - Last Filed: 01/18/19 00:44> *Physical Exam - Vital Signs Last Vital Signs Temp Pulse Resp BP Pulse Ox 98.4 F 78 18 132/66 99 01/17/19 21:52 01/18/19 00:20 01/18/19 00:20 01/18/19 00:20 01/18/19 00:20 <María Winn Tatumlulafalguni - Last Filed: 01/18/19 00:21> - Vital Signs Last Vital Signs Temp Pulse Resp BP Pulse Ox 98.4 F 77 18 123/98 97 01/17/19 21:52 01/17/19 21:52 01/17/19 21:52 01/17/19 21:52 01/17/19 21:52 - Physical Exam Comments: 01/17/19 22:13 Gen: pleasant, well-developed, well-nourished Neuro: AAOX2, FTN intact, CN II-XII intact HEENT: atraumatic, normocephalic Neck: trachea midline, supple Skin: one 1 cm curvilinear laceration on R hand, one 1 cm laceration near R elbow, and one 9 cm laceration in R forearm. Multiple wounds in L leg covered with Bandaids. One small dark wound above L eyebrow. MSK: full ROM, contusion near elbow without any deformities Extr: pulses intact, no edema CV: irregular, normal rate Pulm: CTA b/l, no wheezing Abd: soft, non-distended, non-tender <Yuval Peña - Last Filed: 01/18/19 00:44> Procedures - Laceration/Wound Repair Right Lower Arm Wound Length: 7.6 to 12.5 cm Wound Explored: clean Wound's Depth, Shape: superficial, irregular, flap Irrigated w/ Saline: Yes Anesthesia: 1% Lidocaine Wound Debrided: minimal Wound Repaired With: Sutures Suture Size/Type: 5:0 Number of Sutures: 13 Sterile Dressing Applied: Yes Splint Applied: No Right Dorsal Hand Wound Length: to 2.5 cm Wound Explored: clean Wound's Depth, Shape: superficial Anesthesia: 1% Lidocaine Wound Debrided: minimal Wound Repaired With: Sutures Suture Size/Type: 5:0 Number of Sutures: 2 <Yuval Peña - Last Filed: 01/18/19 00:44> ED Treatment Course - LABORATORY CBC & Chemistry Diagram: 01/17/19 21:55 01/17/19 21:55 - ADDITIONAL ORDERS Additional order review: Laboratory Results 01/17/19 01/17/19 01/17/19 21:55 21:55 21:55 PT with INR Cancelled 12.90 INR Cancelled 1.09 PTT (Actin FS) 34.6 Sodium 134 L Potassium 4.2 Chloride 96 L Carbon Dioxide 31 Anion Gap 7 L BUN 24.5 H Creatinine 1.3 Est GFR (CKD-EPI)AfAm 43.63 Est GFR (CKD-EPI)NonAf 37.64 Random Glucose 138 H Calcium 9.3 Total Bilirubin 0.7 AST 19 ALT 30 Alkaline Phosphatase 136 H Total Protein 8.2 Albumin 4.4 01/17/19 21:55 RBC 4.82 MCV 90.2 MCHC 34.2 RDW 13.7 MPV 8.3 D Neutrophils % 81.8 D Lymphocytes % 9.8 D Monocytes % 7.1 Eosinophils % 1.0 D Basophils % 0.3 <María Winn - Last Filed: 01/18/19 00:21> - LABORATORY CBC & Chemistry Diagram: 01/17/19 21:55 01/17/19 21:55 - ADDITIONAL ORDERS Additional order review: Laboratory Results 01/17/19 21:55 PT with INR Cancelled INR Cancelled 01/17/19 21:55 RBC 4.82 MCV 90.2 MCHC 34.2 RDW 13.7 MPV 8.3 D Neutrophils % 81.8 D Lymphocytes % 9.8 D Monocytes % 7.1 Eosinophils % 1.0 D Basophils % 0.3 - RADIOLOGY Radiology Studies Ordered: Category Date Time Status HEAD CT WITHOUT CONTRAST [CT] Stat CT Scan 01/17/19 21:38 Ordered FOREARM- RIGHT [RAD] Stat Radiology 01/17/19 22:05 Ordered <Yuval Peña Last Filed: 01/18/19 00:44> Medical Decision Making - Medical Decision Making 01/17/19 22:18 83 yo F with mechanical fall, multiple lacerations. - CBC, CMP, coags - Xray forearm despite no apparent deformities or ROM issues, considering contusion - CT head considering trauma on Eliquis 01/17/19 22:39 Na 134, Cl 92. Close to baseline for both. 01/18/19 00:33 13 sutures in 9 cm R forearm laceration (flap present, unable to approximate that section), 2 sutures in 1 cm laceration on R hand. One 1 cm abrasion near elbow. Xeroform dressing and Kerlix applied on R forearm, bacitracin on R hand. 01/18/19 00:43 CT head without acute pathology. Extensive ischemic small vessel disease and global volume loss. <Yuval Peña - Last Filed: 01/18/19 00:44> Discharge - Discharge Information Problems reviewed: Yes - Admission No <María Winn - Last Filed: 01/18/19 00:21> <Yuval Peña - Last Filed: 01/18/19 00:44> - Discharge Information Clinical Impression/Diagnosis: Laceration of arm, right, complicated Qualifiers: Encounter type: initial encounter Qualified Code(s): S41.111A - Laceration without foreign body of right upper arm, initial encounter Condition: Improved Disposition: HOME - Follow up/Referral Referrals: Emergency Dept,Physician, MD [Emergency Physician] - - Patient Discharge Instructions Patient Printed Discharge Instructions: DI for Laceration Repair -- Complex Suture, DI for Contusion, DI for Hematoma (Bruise), How to Prevent Falls Additional Instructions: Wound dressed with topical Bacitracin and sterile gauze. Follow up with your primary care doctor within 48-72 hours for a wound check. Keep sutures covered and dry for 24 hours then clean with soap and water daily - do not scrub. Apply bacitracin or neosporin twice a day with warm soaks and cover with gauze/ dressings. Return to ED for suture removal 10-14 days. Return to the ED for any worsening pain, redness, streaking (red lines), swelling, fever or chills. Keep the wound clean and as dry as possible. Do not immerse or soak the wound in water. This means no swimming, washing dishes (unless thick rubber gloves are used), baths, or hot tubs until the stitches are removed or after about two weeks if absorbable suture material was used. Leave original bandages on the wound for the first 24 hours. After this time, showering or rinsing is recommended, rather than bathing. the first day, remove old bandages and gently cleanse the wound with soap and water. Cleansing twice a day prevents buildup of debris and will result in easier suture removal. your CT scan was negative for head bleed or fracture or injuries your blood work and imaging results are unremarkable. FALL PREVENTION AT HOME WHAT YOU NEED TO KNOW There are many different factors that can increase your risk of falls. Falls can happen any time, but the majority of them occur in the home. Fall prevention includes ways to make your home and other areas safer. It also includes ways you can move more carefully to prevent a fall. Health conditions that cause changes in your blood pressure, vision, or muscle strength and coordination may increase your risk for falls. Medicines, including anesthesia, may increase your risk for falls if they make you dizzy, weak, or sleepy. FALL PREVENTION TIPS Stand or sit up slowly. This may help you keep your balance and prevent falls. Do not walk and talk at the same time. Concentrate on the task of walking and continue the conversation after you've reached a safe place. Wear shoes that fit well and have soles that jukebox coin collector. Wear shoes both inside and outside. Use slippers with good jukebox coin collector. Avoid shoes with high heels. Use assistive devices as directed. Your healthcare provider may suggest that you use a cane or walker to help you keep you balance. Be sure you have adequate lighting throughout your house. Keep paths clear. Remove books, shoes and other objects from walkways and stairs. Keep cords for telephones and lamps out of the way so you dont need to walk over them. Remove small rugs or secure them with double-sided tape. This will prevent you from tripping. Use a nightlight when getting out of bed at night. Stay active to maintain overall strength and endurance. Know your limitations. If there is a task you can not complete with ease, do not risk a fall by trying to complete it. Call 911 or have someone else call if: You have fallen and are unconscious You have fallen and cannot move part of your body Contact your healthcare provider if: You have fallen and have pain or a headache You have questions or concerns about your condition or care.
[2019-01-17 22:17] VITALS: TEMP 98.4; BMI 24.3
[2019-01-17 22:36] LABS: ALBUMIN 4.4 g/dl (3.4-5.0); BILIRUBIN,TOTAL 0.7 mg/dL (0.2-1); BLOOD UREA NITROGEN 24.5 mg/dL (7-18); CALCIUM 9.3 mg/dL (8.5-10.1); CREATININE 1.3 mg/dL (0.55-1.3); POTASSIUM 4.2 mmol/L (3.5-5.1); TOT PROT 8.2 g/dl (6.4-8.2)
[2019-01-18 00:20] VITALS: BP 132/66; PULSE 78
--- NOTE | 2019-01-18 00:21 | PDOC ---
Documentation entered by Kieran Hermosillo SCRIBE, acting as scribe for María Winn MD. María Winn MD: This documentation has been prepared by the Jaimee lomeli Xhesika, SCRIBE, under my direction and personally reviewed by me in its entirety. I confirm that the documentation accurately reflects all work, treatment, procedures, and medical decision making performed by me. Attending Attestation - Resident Resident Name: Yuval Peña - ED Attending Attestation I have performed the following: I have examined & evaluated the patient, The case was reviewed & discussed with the resident, I agree w/resident's findings & plan - HPI HPI: 01/17/19 22:15 The patient is an 83 year old female with a significant past medical history of unspecified dementia, hyponatremia, hypothyroidism, CHF, hypothyroidism, asthma , wounds requiring wound care (Dr. Courtney), afib (on eliquis) who presents to the emergency department s/p witnessed fall. As per daughter at bedside they were trying to help the patient up from her wheelchair and put her on her commode and the patient fell backwards, landing on her R side. Family at bedside deny any LOC, hitting head or seizure activity. Family at bedside note the patient is at her baseline. Denies fever, chills, chest pain, SOB, palpitations, dizziness, weakness, N, V, D, abdominal pain, bladder and bowel problems, leg swelling, No sick contacts or travel. No new changes in medications. Allergies: None Past Medical History: Noted in HPI Social history: Lives with family. No tobacco, ETOH or drug use. Surgical history: Appendectomy, L hip replacement Meds: as documented in EMR - Physicial Exam PE: 01/17/19 22:16 General: GCS 14 NAD, well appearing, baseline dementia. HEENT: NCAT, PERRL, EOMI. Airway intact. No battles sign or raccoon eyes. Dentition intact. No e/o septal hematoma, nasal bridge stable. Neck: neck supple, no midline C spine tenderness or deformity, ROM intact. No anterior mass or crepitus, trachea midline. Resp: Lungs clear bilaterally Chest: no clavicle or chest wall tenderness or crepitus CVS: RRR, 2+ pulses throughout. Abdomen: Abdomen soft, nontender, nondistended. Back: Back nontender, no midline spinal tenderness along cervical/thoracic/ lumbar spine, FROM, no stepoffs. MSK: Pelvis stable, Extremities symmetric, no focal areas of tenderness or deformities, proximal and distally; no pain on axial loading. FROM in all extrem. Neuro: Alert, disoriented at baseline, demented. CN II-XII grossly symmetric and intact. no focal neuro deficits. Sensation and strength intact throughout. Skin: +9cm right arm laceration, +bleeding, +ecchymosis and swelling. + rt arm contusion, bruising, swelling. + two LLE wounds, bandaged. intact, normal color and well perfused. old scar to left upper eyebrow, small. 01/18/19 00:47 - Medical Decision Making 01/18/19 00:19 Vital Signs Temp Pulse Resp BP Pulse Ox 98.4 F 77 18 123/98 97 01/17/19 21:52 01/17/19 21:52 01/17/19 21:52 01/17/19 21:52 01/17/19 21:52 ddx ICH/SDH. laceration, fracture, contusion/hematoma. CT head chronic microvascular changes, no acute bleed/CVA labs and lytes wnl. Cr at baseline Xray of rt arm neg for fx tdap is up to date per family sutured wounds by resident, see procedure note skin tears present too covered with xeroform, bacitracin and dry dressings wound care instructions given to family return in 10-14 days for removal monitor for worsening sx, infection, fall prevention
[2019-01-18] MEDS ORDERED: BACITRACIN 0.9 GM PACKET ONE (02:22)
== END 2019-01-18 02:27 | disposition home or self-care (01) ==
LOC: JER 21:08
PROC: 0HQDXZZ Repair Right Lower Arm Skin, External Approach (ICD-10-PCS; principal; 2019-01-17)
PROC: 0HQFXZZ Repair Right Hand Skin, External Approach (ICD-10-PCS; 2019-01-17)
DX: S51.811A Laceration without foreign body of right forearm, initial encounter (principal); S61.511A Laceration without foreign body of right wrist, initial encounter; S61.411A Laceration without foreign body of right hand, initial encounter; S50.01XA Contusion of right elbow, initial encounter; W04.XXXA Fall while being carried or supported by other persons, initial encounter; Y93.89 Activity, other specified; Y92.018 Other place in single-family (private) house as the place of occurrence of the external cause; Y99.8 Other external cause status; I48.91 Unspecified atrial fibrillation; Z79.01 Long term (current) use of anticoagulants; I11.0 Hypertensive heart disease with heart failure; I50.9 Heart failure, unspecified; D50.9 Iron deficiency anemia, unspecified; J45.909 Unspecified asthma, uncomplicated; E78.00 Pure hypercholesterolemia, unspecified; E03.9 Hypothyroidism, unspecified; F03.90 Unspecified dementia, unspecified severity, without behavioral disturbance, psychotic disturbance, mood disturbance, and anxiety; F41.9 Anxiety disorder, unspecified; Z86.73 Personal history of transient ischemic attack (TIA), and cerebral infarction without residual deficits; Z86.718 Personal history of other venous thrombosis and embolism; Z87.440 Personal history of urinary (tract) infections
CPT/HCPCS: 12004; 36415; 70450-TC; 73090-TC-RT-FY; 80053; 85025; 85610; 85730; 99283-25

== ENCOUNTER 2019-02-22 13:12 | Inpatient (IN) | payer OTHER ==
[2019-02-22] MEDS ORDERED: ALBUTEROL SO4 2.5/IPRATROPIUM 0.5 INH SOL 3 ML VIAL.NEB. NEB ONE ×2 (13:43→14:03)
[2019-02-22] MEDS ORDERED: methylPREDNISolone NA SUCC 125 MG/2 ML VIAL ONE (13:44)
[2019-02-22] MEDS: SODIUM CHLORIDE 0.9% 500 ML INFUS.BAG IV ONE ×2 (13:53→14:42)
[2019-02-22] MEDS ORDERED: VANCOMYCIN 1 GM in D5W (PRE-DOCKED) 1,000 MG/250 ML IVPB ONE (13:53)
--- NOTE | 2019-02-22 13:57 | PDOC ---
History of Present Illness - General Chief Complaint: Shortness of Breath Stated Complaint: DIFF BREATHING Time Seen by Provider: 02/22/19 13:51 - History of Present Illness Initial Comments: 02/22/19 13:54 83 yo F PMH dementia, hypothyroidism, CHF, asthma, chronic wound, afib, brought to ER by her daughter for worsening SOB. Patient had reportedly been fighting a URI for the past couple days, on an oral antibiotic, and had a worsening cough. Patient extremely lethargic and unable to provide more history. Per daughter patient was noted to be more lethargic and difficulty to arouse by family. Patient is hypothermic, hypotensive and hypoxic. Past History - Past Medical History Allergies/Adverse Reactions: Allergies Allergy/AdvReac Type Severity Reaction Status Date / Time No Known Drug Allergies Allergy Verified 02/22/19 13:34 Home Medications: Ambulatory Orders Dexlansoprazole [Dexilant] 60 mg PO DAILY 03/08/16 Metoprolol Tartrate [Lopressor] 100 mg PO BID 03/08/16 Multivitamins [Multivit ([facility] Formulary)] 1 tab PO DAILY 03/08/16 Sertraline HCl [Zoloft -] 50 mg PO DAILY 03/08/16 Mupirocin Cream [Bactroban 2% Cream -] 1 applic TP BID #1 tube MDD 2 08/23/17 Albuterol 0.083% Nebulizer [place] [Ventolin 0.083% Nebulizer Soln -] 1 neb NEB Q4H PRN 03/03/18 Budesonide/Formeterol Fumarate [SYMBICORT 160/4.5mcg -] 2 inh PO DAILY 03/03/18 Levothyroxine [Synthroid -] 88 mcg PO DAILY@0700 MDD 1 03/03/18 Mirtazapine [Remeron -] 15 mg PO HS 03/03/18 Risperidone [Risperdal -] 0.5 mg PO BID 03/03/18 Furosemide [Lasix] 40 mg PO DAILY 11/15/18 Lidocaine 17 adh.patch TD PRN 11/15/18 Loratadine [Claritin -] 10 mg PO DAILY 11/15/18 Nystatin/Triamcin [Nystatin-Triamcinolone Cream] 15 gm TD BID 11/15/18 Umeclidinium [place] [Incruse Ellipta] 62.5 mcg IH DAILY 11/15/18 Apixaban [Eliquis -] 2.5 mg PO BID tablet 11/18/18 Docusate Sodium [Colace -] 300 mg PO HS capsule 11/18/18 Anemia: Yes (mild iron def) Asthma: Yes (HOME O2 3L PRN) Cancer: Yes (SKIN CA) Cardiac Disorders: Yes (AFIB) CVA: Yes (TIA) COPD: No CHF: Yes DVT: (sent today 06/23/14 to r/o lle dvt) Dementia: Yes Diabetes: No GI Disorders: No Disorders: Yes (FREQUENT UTI'S) HTN: Yes Hypercholesterolemia: No Liver Disease: No Psychiatric Problems: Yes (ANXIETY.) Seizures: No Thyroid Disease: Yes (HYPOTHYROIDISM) - Surgical History Abdominal Surgery: Yes Appendectomy: Yes Orthopedic Surgery: Yes (HIP REPLACEMENT, Left) - Immunization History Immunization Up to Date: Yes (allergic to flu shot) - Psycho Social/Smoking Cessation Hx Smoking Status: No Smoking History: Unknown if ever smoked Have you smoked in the past 12 months: No Number of Cigarettes Smoked Daily: 0 Hx Alcohol Use: No Drug/Substance Use Hx: No Substance Use Type: None Hx Substance Use Treatment: No Review of Systems - Review of Systems Able to Perform ROS?: No (clinical condition) *Physical Exam - Vital Signs Last Vital Signs Temp Pulse Resp BP Pulse Ox 95.5 F L 70 35 H 135/75 85 L 02/22/19 13:33 02/22/19 13:33 02/22/19 13:33 02/22/19 13:33 02/22/19 13:33 - Physical Exam Comments: 02/22/19 18:42 Gen: appears to be in distress Neuro: unable to answer orientation questions, unable to evaluate cranial nerves , able to move limbs spontaneously, EOMI, PERRLA HEENT: atraumatic, normocephalic, dry mucous membranes Neck: trachea midline, supple CV: regular rate, regular rhythm, no murmurs, rubs, or gallops Pulm: extremely junky lung sounds with wet cough, laboring to breath, R worse than L Abd: soft, non-distended, non-tender MSK: full ROM, intact pulses Extr: no edema, no deformities Skin: cool, dry, wound on R arm approximately 6 cm, appears to be infected with erythematous margins ED Treatment Course - LABORATORY CBC & Chemistry Diagram: 02/22/19 14:00 02/23/19 07:10 - RADIOLOGY Radiology Studies Ordered: Category Date Time Status CHEST X-RAY PORTABLE* [RAD] Stat Radiology 02/22/19 13:48 Ordered Medical Decision Making - Medical Decision Making 02/22/19 13:53 Concern for PNA sepsis vs R wound infection. - sepsis workup - empiric coverage with vanc/zosyn - high flow oxygen - 500 cc bolus - admit 02/22/19 14:45 CXR concerning for possible R lobe infiltrate with atelectasis concerning for PNA. Acute Hgb drop from 11s to 8s. Stool occult negative. pH 7.25, appears to have metabolic [place]osis[place] [id number]. 02/22/19 15:50 BP dropping to 60s systolic. Discussed with family, who understand that the patient is dying. They confirmed that she is DNR/DNI and does not want any aggressive measures to be performed. 02/22/19 16:45 DNR/DNI paperwork was at home so was refiled here. Patient planned to admit to floors with comfort care. Discharge - Discharge Information Problems reviewed: Yes Clinical Impression/Diagnosis: Sepsis Condition: - Follow up/Referral - Patient Discharge Instructions - Post Discharge Activity
[2019-02-22] MEDS ORDERED: methylPREDNISolone NA SUCC 125 MG/2 ML VIAL IVPB ONE (14:02)
[2019-02-22] MEDS ORDERED: PIPERACILLIN/TAZOB 3.375 GM 3.375 GM/50 ML BAG IVPB ONE (14:08)
[2019-02-22] MEDS ORDERED: VANCOMYCIN 1 GRAM (PRE-DOCKED) 1,000 MG/250 ML BAG IVPB ONE (14:08)
[2019-02-22] MEDS: PIPERACILLIN/TAZOB 3.375 GM 3.375 GM in DEXTROSE 5%-WATER - 50 ML IVPB SCH ×2 (14:08→18:21)
[2019-02-22 14:18] LABS: BASO % 1.2 % (0-2.0); EOS % 2.1 % (0-4.5); HEMATOCRIT 26.5 % (32.4-45.2); HEMOGLOBIN 8.3 GM/dL (10.7-15.3); LYMPH % 8.3 % (8-40); MCH 26.7 pg (25.7-33.7); MCHC 31.2 g/dl (32.0-36.0); MEAN CELL VOLUME 85.6 fl (80-96); MEAN PLT VOLUME 8.9 fl (7.5-11.1); NEUT % 74.4 % (42.8-82.8); PLATELET COUNT 319 K/MM3 (134-434); RDW 16.3 % (11.6-15.6); VENOUS PC02 51.8 mmHg (38-52); VENOUS PH 7.25 (7.31-7.41); WHITE BLOOD COUNT 8.1 K/mm3 (4.0-10.0)
[2019-02-22 14:19] LABS: VENOUS PO2 < 49 mmHg (28-48)
[2019-02-22 14:33] LABS: INR 1.79 (0.83-1.09); PROTHROMBIN TIME (PATIENT) 21.2 SEC (9.7-13.0)
[2019-02-22 14:36] LABS: ACTIVATED PTT 43.1 SECONDS (25.2-36.5)
[2019-02-22 14:49] LABS: ALBUMIN 3.1 g/dl (3.4-5.0); BILIRUBIN,TOTAL 0.7 mg/dL (0.2-1); BLOOD UREA NITROGEN 54.8 mg/dL (7-18); CALCIUM 8.9 mg/dL (8.5-10.1); MAGNESIUM 2.5 mg/dL (1.8-2.4); N-TERMINAL BNP 22787.4 pg/ml (5-450); PHOSPHOROUS 4.5 mg/dL (2.5-4.9); POTASSIUM 4.6 mmol/L (3.5-5.1); TOT PROT 7.3 g/dl (6.4-8.2)
[2019-02-22 14:56] LABS: EPI CELLS 4.9 /HPF (0-5/HPF); HYALINE CASTS 11 /lpf (0-8); URINE APPEARANCE CLEAR; URINE BACTERIA 3.8 /hpf (NEGATIVE); URINE BILIRUBIN NEGATIVE (NEGATIVE); URINE COLOR YELLOW; URINE GLUCOSE (UA) NEGATIVE (NEGATIVE); URINE KETONE NEGATIVE (NEGATIVE); URINE LEUK ESTERASE NEGATIVE (NEGATIVE); URINE NITRITE NEGATIVE (NEGATIVE); URINE PROTEIN 1+ (NEGATIVE); URINE RBC 6 /hpf (0-4); URINE UROBILINOGEN 0.2 mg/dL (0.2-1.0); URINE WBC 6 /hpf (0-5)
[2019-02-22 15:14] LABS: ARTERIAL BLD GAS O2 SATURATION 85.7 % (95-98); ARTERIAL BLOOD GAS BASE EXCESS -6.7 meq/l (-2-2); ARTERIAL BLOOD GAS PO2 61.6 mmHg (80-100); ARTERIAL BLOOD GAS pH 7.28 (7.35-7.45)
[2019-02-22 15:16] LABS: CARBOXYHEMOGLOBIN 1.1 % (0-2)
[2019-02-22 15:18] LABS: ALLENS TEST POSITIVE
--- NOTE | 2019-02-22 16:40 | PDOC ---
Documentation entered by Yumiko Fuentes SCRIBE, acting as scribe for Susan Purcell MD. Susan Purcell MD: This documentation has been prepared by the Gina lomeli Nirvannie, SCRIBE, under my direction and personally reviewed by me in its entirety. I confirm that the documentation accurately reflects all work, treatment, procedures, and medical decision making performed by me. Attending Attestation - Resident Resident Name: PeñaYuval - ED Attending Attestation I have performed the following: I have examined & evaluated the patient, The case was reviewed & discussed with the resident, I agree w/resident's findings & plan - HPI HPI: 02/22/19 15:10 The patient is an 83 year old female, with a significant past medical history of unspecified dementia, hyponatremia, hypothyroidism, CHF, asthma, chronic wounds requiring wound care, afib (on Eliquis), who presents to the emergency department with, shortness of breath and cough. Allergies: NKDA Past surgical history: Appendectomy, L hip replacement Primary Care Physician: Dr. Juárez - Physicial Exam PE: 02/22/19 14:46 Agree with resident exam. Gen: patient is alert, tachpneic and in modertate distress. CV: rrr no m/r/g Pulm: + rhonchi bilaterally. Abdomen soft, non tender, non distended. Ext: no edema. Neuro: alert, nods head in response to some questions, moving all extremities. At baseline mental status as per patient's daughter. - Critical Care Time Total Critical Care Time: 30 Critical Care Statement: The care of this patient involved high complexity decision making to prevent further life threatening deterioration of the patient 's condition and/or to evaluate & treat vital organ system(s) failure or risk of failure. - Medical Decision Making 02/22/19 14:48 Pt presents to the ED with shortness of breath and cough. + tachypnea, hypoxia and hypotension on arrival to the ED. Labs show anemia with hgb of 8 down from 14. Concern for sepsis, PNA, severe anemia, CHF. Started on high flow oxygen to improve oxygenation. Broad spectrum antibiotics started. Will admit to medicine, check labs and cxr and continue oxygen. DNR status confirmed with daughter, who is at the bedside. 02/22/19 14:52 02/22/19 15:50 Went to reassess patient. BP is now in the 60s systolic, patient is hypoxic on the ABG. Case discussed at length with son and daughter, who understand that the patient is dying. The patient has expressed her wish to peacefully at home and does not want invasive measures to be taken. Daughter and son which for the patient to be comfort care, and for invasive measures not to be taken. DNR/DNI status confirmed with the family.
--- NOTE | 2019-02-22 17:27 | HP ---
Admitting History and Physical - Primary Care Physician PCP: Hector Juárez I - Admission Chief Complaint: worsening SOB History of Present Illness: Patient is an 83 y/o female with past medical history of Dementia, Hyponatremia , Hypothyroidism, CHF, asthma, Chronic wound, Afib. Patient was brought to ER by her daughter for worsening SOB. Patient is lethargic on examination and is poor informant. Information received from patients daughter. As per daughter patient began having productive cough and SOB and was seen by PMD and started on oral antibiotics. As per daughter she did not improve and began having worsening SOB, productive cough and increase in lethargy. This morning patient was noted to be more lethargic and difficulty to arouse by family memebers and she was brought to ER by EMS. In ER patient was noted to be hypothermic, hypotensive and hypoxic. Family was in agreement and wants to make patient DNR/ DNI and comfort care only. 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 Cardiovascular: Yes: AFIB, HTN Pulmonary: Yes: COPD Renal/: Yes: Other Heme/Onc: Yes: Anemia Psych: Yes: Depression Musculoskeletal: Yes: Chronic low back pain - Past Surgical History Past Surgical History: Yes: Appendectomy, Joint Replacement (right hip) - Smoking History Smoking history: Unknown if ever smoked Have you smoked in the past 12 months: No Aproximately how many cigarettes per day: 0 - Alcohol/Substance Use Hx Alcohol Use: No History of Substance Use: reports: None - Social History ADL: Support Services History of Recent Travel: No Home Medications - Allergies Allergies/Adverse Reactions: Allergies Allergy/AdvReac Type Severity Reaction Status Date / Time No Known Drug Allergies Allergy Verified 02/22/19 13:34 - Home Medications Home Medications: Ambulatory Orders Dexlansoprazole [Dexilant] 60 mg PO DAILY 03/08/16 Metoprolol Tartrate [Lopressor] 100 mg PO BID 03/08/16 Multivitamins [Multivit ([facility] Formul[facility])] 1 tab PO DAILY 03/08/16 Sertraline HCl [Zoloft -] 50 mg PO DAILY 03/08/16 Mupirocin Cream [Bactroban 2% Cream -] 1 applic TP BID #1 tube MDD 2 08/23/17 Albuterol 0.083% Nebulizer Tracy [Ventolin 0.083% Nebulizer Soln -] 1 neb NEB Q4H PRN 03/03/18 Budesonide/Formeterol Fumarate [SYMBICORT 160/4.5mcg -] 2 inh PO DAILY 03/03/18 Levothyroxine [Synthroid -] 88 mcg PO DAILY@0700 MDD 1 03/03/18 Mirtazapine [Remeron -] 15 mg PO HS 03/03/18 Risperidone [Risperdal -] 0.5 mg PO BID 03/03/18 Furosemide [Lasix] 40 mg PO DAILY 11/15/18 Lidocaine 17 adh.patch TD PRN 11/15/18 Loratadine [Claritin -] 10 mg PO DAILY 11/15/18 Nystatin/Triamcin [Nystatin-Triamcinolone Cream] 15 gm TD BID 11/15/18 Umeclidinium [place] [Incruse Ellipta] 62.5 mcg IH DAILY 11/15/18 Apixaban [Eliquis -] 2.5 mg PO BID tablet 11/18/18 Docusate Sodium [Colace -] 300 mg PO HS capsule 11/18/18 Review of Systems Unable to obtain ROS, reason: due to clinical condition Physical Examination Vital Signs: Vital Signs Temperature 95.5 F L 02/22/19 13:33 Pulse Rate 70 02/22/19 13:33 Respiratory Rate 35 H 02/22/19 13:33 Blood Pressure 135/75 02/22/19 13:33 O2 Sat by Pulse Oximetry (%) 85 L 02/22/19 13:33 Constitutional: Yes: No Distress, Calm Eyes: Yes: Conjunctiva Clear HENT: Yes: Atraumatic Cardiovascular: Yes: Regular Rate and Rhythm Respiratory: Yes: Regular, Rhonchi, Other (HFOT) Gastrointestinal: Yes: Normal Bowel Sounds, Soft Musculoskeletal: Yes: Muscle Weakness Extremities: Yes: WNL Edema: No Neurological: Yes: Lethargy Labs: CBC, BMP 02/22/19 14:00 02/22/19 14:00 Imaging - Results Chest X-ray: Report Reviewed Problem List - Problems (1) CARIN (acute kidney injury) Assessment/Plan: -BUN/Cr 54.8/2.0 Code(s): N17.9 - ACUTE KIDNEY FAILURE, UNSPECIFIED (2) Afib Assessment/Plan: -on Eliquis at home, family does not wish to restart home medication Code(s): I48.91 - UNSPECIFIED ATRIAL FIBRILLATION (3) Hypothyroidism Assessment/Plan: -on Levothyroxine at home, family does not wish to start home medication Code(s): E03.9 - HYPOTHYROIDISM, UNSPECIFIED (4) Respiratory distress Assessment/Plan: -HFOT -keep SpO2 >90% -CXR shows possible infiltrate with atelectasis and effusion right lung base -bronchodilators -palliative consult placed Code(s): R06.03 - ACUTE RESPIRATORY DISTRESS (5) SIRS (systemic inflammatory response syndrome) Assessment/Plan: -CXR shows possible infiltrate with atelectasis and effusion right lung base -HFOT -keep SpO2 >90% -bronchodilators -LA 2.0 -Hypothermic -no leukocytosis -BC and UC pending -palliative consult placed Code(s): R65.10 - SIRS OF NON-INFECTIOUS ORIGIN W/O ACUTE ORGAN DYSFUNCTION (6) CHF (congestive heart failure) Code(s): I50.9 - HEART FAILURE, UNSPECIFIED (7) Hypertension Assessment/Plan: -monitor BP -due to hypotension meds on hold Code(s): I10 - ESSENTIAL (PRIMARY) HYPERTENSION (8) Hyponatremia Assessment/Plan: -Na 130 -D5NS @ 42cc/hr Code(s): E87.1 - HYPO-OSMOLALITY AND HYPONATREMIA Assessment/Plan PATIENT MADE DNR/DNI BY FAMILY. THEY WANT COMFORT CARE, INCLUDING NO BLOOD DRAWS AND FURTHER DIAGNOSTIC TESTING. DAUGHTER DOES NOT WANT TO RESTART HOME MEDICATION. PALLIATIVE CONSULT PLACED.
[2019-02-22] MEDS ORDERED: ALBUTEROL SO4 2.5/IPRATROPIUM 0.5 INH SOL 3 ML VIAL.NEB. NEB PRN (18:46)
[2019-02-22] MEDS ORDERED: DEXTROSE 5%-NORMAL SALINE 1,000 ML IV SCH (19:00)
[2019-02-22] MEDS ORDERED: MORPHINE SULFATE 2 MG/ML VIAL IVPUSH ONE (20:45)
[2019-02-22 23:43] VITALS: BMI 26.6
[2019-02-23] MEDS ORDERED: MORPHINE SULFATE 2 MG/ML VIAL IVPUSH PRN (01:00)
[2019-02-23] MEDS ORDERED: PIPERACILLIN/TAZOBACTAM 3.375 GM VIAL IVPB ONE ×3 (02:57→09:47)
[2019-02-23] MEDS ORDERED: DEXTROSE 5%-WATER - 50 ML IVPB ONE ×3 (02:58→09:47)
[2019-02-23] MEDS: PIPERACILLIN/TAZOB 3.375 GM 3.375 GM in DEXTROSE 5%-WATER - 50 ML IVPB SCH ×2 (03:06→09:42)
[2019-02-23 07:58] LABS: ALBUMIN 2.9 g/dl (3.4-5.0); BILIRUBIN,TOTAL 0.9 mg/dL (0.2-1); BLOOD UREA NITROGEN 54.1 mg/dL (7-18); CALCIUM 8.8 mg/dL (8.5-10.1); POTASSIUM 4.5 mmol/L (3.5-5.1); TOT PROT 6.9 g/dl (6.4-8.2)
--- NOTE | 2019-02-23 10:02 | CON.PULM ---
Consult Consult Specialty:: PULM/CCM Referred by:: JESSE Reason for Consultation:: SOB - History of Present Illness Chief Complaint: SOB History of Present Illness: 83 F, Dementia, Hyponatremia, Hypothyroidism, CHF, asthma, Chronic wound, and Afib. Patient was apparently brought to ER by her daughter for worsening SOB. Patient is unable to give any information. Apparently she has been having productive cough and SOB and was given outpatient antibiotics. The patient was noted to be more lethargic and difficult to arouse by her family. In the ER she was noted to be hypothermic, hypotensive and hypoxic. She was made DNR/DNI and the family requested comfort care only. 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 Cardio/Vascular: Yes: AFIB, HTN Pulmonary: Yes: COPD Renal/: Yes: Other ...: No Psych: Yes: Depression Musculoskeletal: Yes: Chronic low back pain Additional Medical History: stage V sacral ulcer - Past Surgical History Past Surgical History: Yes: Appendectomy, Joint Replacement (right hip) - Alcohol/Substance Use Hx Alcohol Use: No History of Substance Use: reports: None - Smoking History Smoking history: Never smoked Have you smoked in the past 12 months: No Aproximately how many cigarettes per day: 0 - Social History Usual Living Arrangement: Assisted Living ADL: Support Services History of Recent Travel: No Home Medications - Allergies Allergies/Adverse Reactions: Allergies Allergy/AdvReac Type Severity Reaction Status Date / Time No Known Drug Allergies Allergy Verified 02/22/19 13:34 - Home Medications Home Medications: Ambulatory Orders Dexlansoprazole [Dexilant] 60 mg PO DAILY 03/08/16 Metoprolol Tartrate [Lopressor] 100 mg PO BID 03/08/16 Multivitamins [Multivit ([facility] Formul[facility])] 1 tab PO DAILY 03/08/16 Sertraline HCl [Zoloft -] 50 mg PO DAILY 03/08/16 Mupirocin Cream [Bactroban 2% Cream -] 1 applic TP BID #1 tube MDD 2 08/23/17 Albuterol 0.083% Nebulizer [place] [Ventolin 0.083% Nebulizer Soln -] 1 neb NEB Q4H PRN 03/03/18 Budesonide/Formeterol Fumarate [SYMBICORT 160/4.5mcg -] 2 inh PO DAILY 03/03/18 Levothyroxine [Synthroid -] 88 mcg PO DAILY@0700 MDD 1 03/03/18 Mirtazapine [Remeron -] 15 mg PO HS 03/03/18 Risperidone [Risperdal -] 0.5 mg PO BID 03/03/18 Furosemide [Lasix] 40 mg PO DAILY 11/15/18 Lidocaine 17 adh.patch TD PRN 11/15/18 Loratadine [Claritin -] 10 mg PO DAILY 11/15/18 Nystatin/Triamcin [Nystatin-Triamcinolone Cream] 15 gm TD BID 11/15/18 Umeclidinium [place] [Incruse Ellipta] 62.5 mcg IH DAILY 11/15/18 Apixaban [Eliquis -] 2.5 mg PO BID tablet 11/18/18 Docusate Sodium [Colace -] 300 mg PO HS capsule 11/18/18 Review of Systems Unable to obtain ROS, reason: not able to obtain Physical Exam Vital Sings: Vital Signs Temperature 98.0 F 02/23/19 07:39 Pulse Rate 105 H 02/23/19 07:39 Respiratory Rate 20 02/23/19 07:39 Blood Pressure 105/72 02/23/19 07:39 O2 Sat by Pulse Oximetry (%) 97 02/22/19 21:45 Constitutional: Yes: No Distress, Thin Eyes: Yes: Conjunctiva Clear, EOM Intact HENT: Yes: Atraumatic, Normocephalic Neck: Yes: Supple, Trachea Midline Cardiovascular: Yes: Pulse Irregular Respiratory: Yes: Cough, Diminished, On Nasal O2, Rhonchi, Tachypnea, Wheezes. No: Accessory Muscle Use, Rales, SOB, SOB on Exertion, Stridor ...Inspection: Yes: WNL ...Clubbing: No Gastrointestinal: Yes: Normal Bowel Sounds, Soft Musculoskeletal: Yes: WNL Extremities: Yes: WNL Edema: No Peripheral Pulses WNL: Yes Neurological: Yes: Confusion Labs: CBC, BMP 02/22/19 14:00 02/23/19 07:10 ABG Results ABG pH 7.28 (7.35-7.45) L 02/22/19 14:54 ABG pCO2 at Pt Temp 42.0 mmHg (35-45) 02/22/19 14:54 ABG pO2 at Pt Temp 61.6 mmHg (80-100) L 02/22/19 14:54 ABG HCO3 19.1 mmol/L (22-27) L 02/22/19 14:54 ABG O2 Sat (Measured) 85.7 % (95-98) L 02/22/19 14:54 ABG O2 Content 10.6 % vol 02/22/19 14:54 ABG Base Excess -6.7 meq/l (-2-2) L 02/22/19 14:54 Imaging - Results Chest X-ray: Report Reviewed, Image Reviewed Problem List - Problems (1) Pneumonia Code(s): J18.9 - PNEUMONIA, UNSPECIFIED ORGANISM (2) Hyponatremia Code(s): E87.1 - HYPO-OSMOLALITY AND HYPONATREMIA (3) Sepsis Code(s): A41.9 - SEPSIS, UNSPECIFIED ORGANISM (4) Afib Code(s): I48.91 - UNSPECIFIED ATRIAL FIBRILLATION (5) Asthma Code(s): J45.909 - UNSPECIFIED ASTHMA, UNCOMPLICATED (6) Atrial fibrillation Code(s): I48.91 - UNSPECIFIED ATRIAL FIBRILLATION Qualifiers: (7) CHF (congestive heart failure) Code(s): I50.9 - HEART FAILURE, UNSPECIFIED (8) CKD (chronic kidney disease) Code(s): N18.9 - CHRONIC KIDNEY DISEASE, UNSPECIFIED (9) Cellulitis Code(s): L03.90 - CELLULITIS, UNSPECIFIED Qualifiers: Site of cellulitis: extremity Site of cellulitis of extremity: lower extremity Laterality: left Qualified Code(s): L03.116 - Cellulitis of left lower limb (10) Dementia with behavioral disturbance Code(s): F03.91 - UNSPECIFIED DEMENTIA WITH BEHAVIORAL DISTURBANCE (11) Dyspnea Code(s): R06.00 - DYSPNEA, UNSPECIFIED (12) Fever Code(s): R50.9 - FEVER, UNSPECIFIED (13) GERD (gastroesophageal reflux disease) Code(s): K21.9 - GASTRO-ESOPHAGEAL REFLUX DISEASE WITHOUT ESOPHAGITIS (14) Hypothyroidism Code(s): E03.9 - HYPOTHYROIDISM, UNSPECIFIED (15) Lethargy Code(s): R53.83 - OTHER FATIGUE Assessment/Plan Family has made the patient DNR/DNI. They have requested comfort care measures. Per family request will start MS drip for comfort. Aspiration precautions O2 as needed Thank you. Dr Oliver
--- NOTE | 2019-02-23 10:12 | EKG ---
Test Reason : Blood Pressure : / mmHG Vent. Rate : 075 BPM Atrial Rate : 085 BPM P-R Int : 000 ms QRS Dur : 100 ms QT Int : 404 ms P-R-T Axes : 000 025 227 degrees QTc Int : 451 ms ATRIAL FIBRILLATION BASELINE ARTIFACT ABNORMAL ECG WHEN COMPARED WITH ECG OF 14-NOV-2018 13:24, LIKELY NO SIGNIFICANT CHANGES Confirmed by JUWAN FELICIANO MD ([id number]) on 02/23/2019 10:12:03 AM Referred By: Confirmed By:JUWAN FELICIANO MD
[2019-02-23] MEDS: MORPHINE SULFATE/0.9% NACL/PF 100 MG/100 ML BAG IVPB SCH (10:50)
[2019-02-23] MEDS ORDERED: SCOPOLAMINE HYDROBROMIDE 1 PATCH PATCH.TD72 TD SCH (11:45)
--- NOTE | 2019-02-23 14:10 | PN ---
Progress Note, Physician - Current Medication List Current Medications: Active Medications Albuterol/Ipratropium (Duoneb -) 1 amp NEB Q6H PRN PRN Reason: SHORTNESS OF BREATH Last Admin: 02/23/19 05:30 Dose: 1 amp Morphine Sulfate (Morphine 100mg/100ml-0.9% Nacl) 100 mg in 100 mls @ 2 mls/hr IVPB TITR MINGO; Protocol Last Admin: 02/23/19 10:50 Dose: 2 mg/hr, 2 mls/hr Morphine Sulfate (Morphine Sulfate) 0.5 mg IVPUSH Q6H PRN PRN Reason: PAIN LEVEL 4 - 6 Last Admin: 02/23/19 05:41 Dose: 0.5 mg Scopolamine HBr (Transderm-Scop -) 1 patch TD Q72H MINGO Last Admin: 02/23/19 11:46 Dose: 1 patch - Objective Vital Signs: Vital Signs Temperature 97.3 F L 02/23/19 13:41 Pulse Rate 105 H 02/23/19 13:41 Respiratory Rate 20 02/23/19 13:41 Blood Pressure 115/50 L 02/23/19 13:41 O2 Sat by Pulse Oximetry (%) 99 02/23/19 09:00 Constitutional: Yes: No Distress, Thin Cardiovascular: Yes: Regular Rate and Rhythm, S1, S2 Respiratory: Yes: Diminished Gastrointestinal: Yes: Normal Bowel Sounds, Soft Labs: CBC, BMP 02/22/19 14:00 02/23/19 07:10 INR, PTT INR 1.79 (0.83-1.09) H 02/22/19 14:00 Problem List - Problems (1) Sepsis Assessment/Plan: patient is DNR/DNI confort care morphine drip scopolamine patch Code(s): A41.9 - SEPSIS, UNSPECIFIED ORGANISM (2) Afib Assessment/Plan: dnr /dni family wants comfort care Code(s): I48.91 - UNSPECIFIED ATRIAL FIBRILLATION
--- NOTE | 2019-02-23 14:46 | CONSULT ---
Consult Consult Specialty:: Nephrology Reason for Consultation:: CARIN - History of Present Illness Chief Complaint: shortness of breath History of Present Illness: Pt is an 83 year old female with pmhx of dementia, hypothyroidism, chf, asthma, a-fib who was brought in for sob. she was found to be in renal failure and I was called to evaluate her. She was made comfort care and is now on a morphine drip. Family do not want any further intervention. 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 Cardio/Vascular: Yes: AFIB, HTN Pulmonary: Yes: COPD Renal/: Yes: Other ...: No Psych: Yes: Depression Musculoskeletal: Yes: Chronic low back pain Additional Medical History: stage V sacral ulcer - Past Surgical History Past Surgical History: Yes: Appendectomy, Joint Replacement (right hip) - Alcohol/Substance Use Hx Alcohol Use: No History of Substance Use: reports: None - Smoking History Smoking history: Never smoked Have you smoked in the past 12 months: No Aproximately how many cigarettes per day: 0 - Social History Usual Living Arrangement: Assisted Living ADL: Support Services History of Recent Travel: No Home Medications - Allergies Allergies/Adverse Reactions: Allergies Allergy/AdvReac Type Severity Reaction Status Date / Time No Known Drug Allergies Allergy Verified 02/22/19 13:34 - Home Medications Home Medications: Ambulatory Orders Dexlansoprazole [Dexilant] 60 mg PO DAILY 03/08/16 Metoprolol Tartrate [Lopressor] 100 mg PO BID 03/08/16 Multivitamins [Multivit ([facility] Formul[facility])] 1 tab PO DAILY 03/08/16 Sertraline HCl [Zoloft -] 50 mg PO DAILY 03/08/16 Mupirocin Cream [Bactroban 2% Cream -] 1 applic TP BID #1 tube MDD 2 08/23/17 Albuterol 0.083% Nebulizer [place] [Ventolin 0.083% Nebulizer Soln -] 1 neb NEB Q4H PRN 03/03/18 Budesonide/Formeterol Fumarate [SYMBICORT 160/4.5mcg -] 2 inh PO DAILY 03/03/18 Levothyroxine [Synthroid -] 88 mcg PO DAILY@0700 MDD 1 03/03/18 Mirtazapine [Remeron -] 15 mg PO HS 03/03/18 Risperidone [Risperdal -] 0.5 mg PO BID 03/03/18 Furosemide [Lasix] 40 mg PO DAILY 11/15/18 Lidocaine 17 adh.patch TD PRN 11/15/18 Loratadine [Claritin -] 10 mg PO DAILY 11/15/18 Nystatin/Triamcin [Nystatin-Triamcinolone Cream] 15 gm TD BID 11/15/18 Umeclidinium [place] [Incruse Ellipta] 62.5 mcg IH DAILY 11/15/18 Apixaban [Eliquis -] 2.5 mg PO BID tablet 11/18/18 Docusate Sodium [Colace -] 300 mg PO HS capsule 11/18/18 Family Medical History Family History: Unable to Obtain Review of Systems Unable to obtain ROS, reason: lethargy Physical Exam Vital Signs: Vital Signs Temperature 97.3 F L 02/23/19 13:41 Pulse Rate 105 H 02/23/19 13:41 Respiratory Rate 20 02/23/19 13:41 Blood Pressure 115/50 L 02/23/19 13:41 O2 Sat by Pulse Oximetry (%) 99 02/23/19 09:00 Constitutional: Yes: Calm Eyes: Yes: Conjunctiva Clear HENT: Yes: Atraumatic Cardiovascular: Yes: S1, S2 Respiratory: Yes: On Nasal O2, Rhonchi Gastrointestinal: Yes: Soft Renal/: Yes: Incontinence Musculoskeletal: Yes: Muscle Weakness Edema: No Neurological: Yes: Lethargy Labs: CBC, BMP 02/22/19 14:00 02/23/19 07:10 Imaging - Results Chest X-ray: Report Reviewed Problem List - Problems (1) Hyponatremia Code(s): E87.1 - HYPO-OSMOLALITY AND HYPONATREMIA (2) Sepsis Code(s): A41.9 - SEPSIS, UNSPECIFIED ORGANISM (3) CARIN (acute kidney injury) Code(s): N17.9 - ACUTE KIDNEY FAILURE, UNSPECIFIED Assessment/Plan Current Medications Generic Name Dose Route Start Last Admin Trade Name Freq PRN Reason Stop Dose Admin Albuterol/Ipratropium 1 amp 02/22/19 18:46 02/23/19 05:30 Duoneb - NEB 1 amp Q6H PRN Administration SHORTNESS OF BREATH Morphine Sulfate 100 mg in 100 mls @ 2 mls/hr 02/23/19 10:15 02/23/19 10:50 Morphine 100mg/100ml-0.9% Nacl IVPB 2 mg/hr TITR MINGO 2 mls/hr Administration Protocol 2 MG/HR Morphine Sulfate 0.5 mg 02/23/19 01:00 02/23/19 05:41 Morphine Sulfate IVPUSH 0.5 mg Q6H PRN Administration PAIN LEVEL 4 - 6 Scopolamine HBr 1 patch 02/23/19 11:45 02/23/19 11:46 Transderm-Scop - TD 1 patch Q72H MINGO Administration Impression CARIN CKD dyspnea hx GI bleed hypothyroid Plan - pt now on comfort care - cont per primary team - recall as needed
--- NOTE | 2019-02-24 10:11 | PN ---
Progress Note (short form) - Note Progress Note: Lethargic on MS drip. Appears comfortable. Intake & Output 02/21/19 02/22/19 02/23/19 02/24/19 23:59 23:59 23:59 23:59 Intake Total 116 Balance 116 Weight 170 lb 163 lb 1.6 oz Last Vital Signs Temp Pulse Resp BP Pulse Ox 97.5 F L 120 H 16 88/63 L 99 02/24/19 05:27 02/24/19 09:10 02/24/19 09:10 02/24/19 05:27 02/23/19 20:49 Active Medications Albuterol/Ipratropium (Duoneb -) 1 amp NEB Q6H PRN PRN Reason: SHORTNESS OF BREATH Last Admin: 02/23/19 05:30 Dose: 1 amp Morphine Sulfate (Morphine 100mg/100ml-0.9% Nacl) 100 mg in 100 mls @ 2 mls/hr IVPB TITR MINGO; Protocol Last Infusion: 02/24/19 02:09 Dose: 5 mg/hr, 5 mls/hr Morphine Sulfate (Morphine Sulfate) 0.5 mg IVPUSH Q6H PRN PRN Reason: PAIN LEVEL 4 - 6 Last Admin: 02/23/19 05:41 Dose: 0.5 mg Scopolamine HBr (Transderm-Scop -) 1 patch TD Q72H MINGO Last Admin: 02/23/19 11:46 Dose: 1 patch Constitutional: Yes: Lethargic, NAD Eyes: Yes: Conjunctiva Clear, EOM Intact HENT: Yes: Atraumatic, Normocephalic Neck: Yes: Supple, Trachea Midline Cardiovascular: Yes: Pulse Irregular Respiratory: Yes: Cough, Diminished, On Nasal O2, Rhonchi. No: Accessory Muscle Use, Rales, SOB, SOB on Exertion, Stridor ...Inspection: Yes: WNL ...Clubbing: No Gastrointestinal: Yes: Normal Bowel Sounds, Soft Musculoskeletal: Yes: WNL Extremities: Yes: WNL Edema: No Peripheral Pulses WNL: Yes Neurological: Yes: Lethargic Problem List - Problems (1) Pneumonia Code(s): J18.9 - PNEUMONIA, UNSPECIFIED ORGANISM (2) Hyponatremia Code(s): E87.1 - HYPO-OSMOLALITY AND HYPONATREMIA (3) Sepsis Code(s): A41.9 - SEPSIS, UNSPECIFIED ORGANISM (4) Afib Code(s): I48.91 - UNSPECIFIED ATRIAL FIBRILLATION (5) Asthma Code(s): J45.909 - UNSPECIFIED ASTHMA, UNCOMPLICATED (6) Atrial fibrillation Code(s): I48.91 - UNSPECIFIED ATRIAL FIBRILLATION Qualifiers: (7) CHF (congestive heart failure) Code(s): I50.9 - HEART FAILURE, UNSPECIFIED (8) CKD (chronic kidney disease) Code(s): N18.9 - CHRONIC KIDNEY DISEASE, UNSPECIFIED (9) Cellulitis Code(s): L03.90 - CELLULITIS, UNSPECIFIED Qualifiers: Site of cellulitis: extremity Site of cellulitis of extremity: lower extremity Laterality: left Qualified Code(s): L03.116 - Cellulitis of left lower limb (10) Dementia with behavioral disturbance Code(s): F03.91 - UNSPECIFIED DEMENTIA WITH BEHAVIORAL DISTURBANCE (11) Dyspnea Code(s): R06.00 - DYSPNEA, UNSPECIFIED (12) Fever Code(s): R50.9 - FEVER, UNSPECIFIED (13) GERD (gastroesophageal reflux disease) Code(s): K21.9 - GASTRO-ESOPHAGEAL REFLUX DISEASE WITHOUT ESOPHAGITIS (14) Hypothyroidism Code(s): E03.9 - HYPOTHYROIDISM, UNSPECIFIED (15) Lethargy Code(s): R53.83 - OTHER FATIGUE Assessment/Plan Family has made the patient DNR/DNI. They have requested comfort care measures. MS ip for comfort. Aspiration precautions O2 as needed Please call back for any additional input Dr Oliver Problem List - Problems (1) Pneumonia Code(s): J18.9 - PNEUMONIA, UNSPECIFIED ORGANISM (2) Hyponatremia Code(s): E87.1 - HYPO-OSMOLALITY AND HYPONATREMIA (3) Sepsis Code(s): A41.9 - SEPSIS, UNSPECIFIED ORGANISM (4) Afib Code(s): I48.91 - UNSPECIFIED ATRIAL FIBRILLATION (5) Asthma Code(s): J45.909 - UNSPECIFIED ASTHMA, UNCOMPLICATED (6) Atrial fibrillation Code(s): I48.91 - UNSPECIFIED ATRIAL FIBRILLATION Qualifiers: (7) CHF (congestive heart failure) Code(s): I50.9 - HEART FAILURE, UNSPECIFIED (8) CKD (chronic kidney disease) Code(s): N18.9 - CHRONIC KIDNEY DISEASE, UNSPECIFIED (9) Cellulitis Code(s): L03.90 - CELLULITIS, UNSPECIFIED Qualifiers: Site of cellulitis: extremity Site of cellulitis of extremity: lower extremity Laterality: left Qualified Code(s): L03.116 - Cellulitis of left lower limb (10) Dementia with behavioral disturbance Code(s): F03.91 - UNSPECIFIED DEMENTIA WITH BEHAVIORAL DISTURBANCE (11) Dyspnea Code(s): R06.00 - DYSPNEA, UNSPECIFIED (12) Fever Code(s): R50.9 - FEVER, UNSPECIFIED (13) GERD (gastroesophageal reflux disease) Code(s): K21.9 - GASTRO-ESOPHAGEAL REFLUX DISEASE WITHOUT ESOPHAGITIS (14) Hypothyroidism Code(s): E03.9 - HYPOTHYROIDISM, UNSPECIFIED (15) Lethargy Code(s): R53.83 - OTHER FATIGUE
[2019-02-24] MEDS: MORPHINE SULFATE/0.9% NACL/PF 100 MG/100 ML BAG IVPB SCH (11:23)
--- NOTE | 2019-02-24 11:24 | EKG ---
Test Reason : Blood Pressure : / mmHG Vent. Rate : 083 BPM Atrial Rate : 300 BPM P-R Int : 000 ms QRS Dur : 102 ms QT Int : 418 ms P-R-T Axes : 000 035 188 degrees QTc Int : 491 ms ATRIAL FIBRILLATION INCOMPLETE RIGHT BUNDLE BRANCH BLOCK PROLONGED QT ABNORMAL ECG WHEN COMPARED WITH ECG OF 22-FEB-2019 13:30, NO SIGNIFICANT CHANGE WAS FOUND Confirmed by MD Christa, Isac ([id number]) on 02/24/2019 11:24:24 AM Referred By: Confirmed By:Isac Goodwin MD
--- NOTE | 2019-02-24 13:37 | PN ---
Progress Note, Physician Chief Complaint: Sepsis Afib History of Present Illness: Previous notes and events reviewed unresponsive NAD appears comfortable Morphine drip comfort measures - Current Medication List Current Medications: Active Medications Albuterol/Ipratropium (Duoneb -) 1 amp NEB Q6H PRN PRN Reason: SHORTNESS OF BREATH Last Admin: 02/23/19 05:30 Dose: 1 amp Morphine Sulfate (Morphine 100mg/100ml-0.9% Nacl) 100 mg in 100 mls @ 2 mls/hr IVPB TITR MINGO; Protocol Last Admin: 02/24/19 11:23 Dose: 5 mg/hr, 5 mls/hr Morphine Sulfate (Morphine Sulfate) 0.5 mg IVPUSH Q6H PRN PRN Reason: PAIN LEVEL 4 - 6 Last Admin: 02/23/19 05:41 Dose: 0.5 mg Scopolamine HBr (Transderm-Scop -) 1 patch TD Q72H MINGO Last Admin: 02/23/19 11:46 Dose: 1 patch - Objective Vital Signs: Vital Signs Temperature 97.5 F L 02/24/19 12:21 Pulse Rate 120 H 02/24/19 12:21 Respiratory Rate 16 02/24/19 12:21 Blood Pressure 88/63 L 02/24/19 05:27 O2 Sat by Pulse Oximetry (%) 95 02/24/19 09:00 Constitutional: Yes: No Distress, Calm HENT: Yes: Atraumatic Cardiovascular: Yes: Tachycardia, Pulse Irregular Respiratory: Yes: Cough, On Nasal O2, Rhonchi Gastrointestinal: Yes: Normal Bowel Sounds, Soft Genitourinary: Yes: Incontinence Musculoskeletal: Yes: Muscle Weakness Extremities: Yes: WNL Edema: No Neurological: Yes: Unresponsive Labs: CBC, BMP 02/22/19 14:00 02/23/19 07:10 INR, PTT INR 1.79 (0.83-1.09) H 02/22/19 14:00 Problem List - Problems (1) CARIN (acute kidney injury) Code(s): N17.9 - ACUTE KIDNEY FAILURE, UNSPECIFIED (2) Afib Assessment/Plan: -comfort care Code(s): I48.91 - UNSPECIFIED ATRIAL FIBRILLATION (3) Hypothyroidism Code(s): E03.9 - HYPOTHYROIDISM, UNSPECIFIED (4) Respiratory distress Assessment/Plan: -comfort care -DNR/DNI -morphine drip -scopolamine patch Code(s): R06.03 - ACUTE RESPIRATORY DISTRESS (5) SIRS (systemic inflammatory response syndrome) Assessment/Plan: -comfort care -DNR/DNI -morphine drip -scopolamine patch Code(s): R65.10 - SIRS OF NON-INFECTIOUS ORIGIN W/O ACUTE ORGAN DYSFUNCTION (6) CHF (congestive heart failure) Code(s): I50.9 - HEART FAILURE, UNSPECIFIED (7) Hypertension Code(s): I10 - ESSENTIAL (PRIMARY) HYPERTENSION (8) Hyponatremia Code(s): E87.1 - HYPO-OSMOLALITY AND HYPONATREMIA
[2019-02-25] MEDS: MORPHINE SULFATE/0.9% NACL/PF 100 MG/100 ML BAG IVPB SCH (07:38)
--- NOTE | 2019-02-25 10:39 | DS ---
Physical Examination Vital Signs: Vital Signs Temperature 97.3 F L 02/25/19 02:00 Pulse Rate 137 H 02/25/19 02:00 Respiratory Rate 20 02/25/19 02:00 Blood Pressure 105/56 L 02/25/19 02:00 O2 Sat by Pulse Oximetry (%) 98 02/24/19 21:50 Findings/Remarks: Called by RN patient was found to be unresponsive at 10:10am and was called to evaluate. On assessment no carotid pulse palpated, no cardiac rhythm or air entry auscultated. Labs: CBC, BMP 02/22/19 14:00 02/23/19 07:10 Discharge Summary Problems reviewed: Yes Reason For Visit: SIGNIFICANT DROP IN HEMOGLOBIN,SEPSIS Current Active Problems Hyponatremia (Acute) Pneumonia (Acute) Sepsis (Acute) Hospital Course: Patient is an 83 y/o female with past medical history of Dementia, Hyponatremia , Hypothyroidism, CHF, asthma, Chronic wound, Afib. Patient was brought to ER by her daughter for worsening SOB. Patient is lethargic on examination and is poor informant. Information received from patients daughter. As per daughter patient began having productive cough and SOB and was seen by PMD and started on oral antibiotics. As per daughter she did not improve and began having worsening SOB, productive cough and increase in lethargy. This morning patient was noted to be more lethargic and difficulty to arouse by family memebers and she was brought to ER by EMS. In ER patient was noted to be hypothermic, hypotensive and hypoxic. Family was in agreement and wants to make patient DNR/ DNI and comfort care only. Patient was evaluated and placed on in-patient hospice. She was started on morphine drip and scopolamine patch. Called by RN patient was found to be unresponsive at 10:10am and was called to evaluate. On assessment no carotid pulse palpated, no cardiac rhythm or air entry auscultated. Condition: - Instructions Referrals: Hector Juárez MD [Primary Care Provider] - Disposition: - Home Medications Comprehensive Discharge Medication List: Ambulatory Orders Dexlansoprazole [Dexilant] 60 mg PO DAILY 03/08/16 Metoprolol Tartrate [Lopressor] 100 mg PO BID 03/08/16 Multivitamins [Multivit ([facility] Form[facility])] 1 tab PO DAILY 03/08/16 Sertraline HCl [Zoloft -] 50 mg PO DAILY 03/08/16 Mupirocin Cream [Bactroban 2% Cream -] 1 applic TP BID #1 tube MDD 2 08/23/17 Albuterol 0.083% Nebulizer [place] [Ventolin 0.083% Nebulizer Soln -] 1 neb NEB Q4H PRN 03/03/18 Budesonide/Formeterol Fumarate [SYMBICORT 160/4.5mcg -] 2 inh PO DAILY 03/03/18 Levothyroxine [Synthroid -] 88 mcg PO DAILY@0700 MDD 1 03/03/18 Mirtazapine [Remeron -] 15 mg PO HS 03/03/18 Risperidone [Risperdal -] 0.5 mg PO BID 03/03/18 Furosemide [Lasix] 40 mg PO DAILY 11/15/18 Lidocaine 17 adh.patch TD PRN 11/15/18 Loratadine [Claritin -] 10 mg PO DAILY 11/15/18 Nystatin/Triamcin [Nystatin-Triamcinolone Cream] 15 gm TD BID 11/15/18 Umeclidinium [place] [Incruse Ellipta] 62.5 mcg IH DAILY 11/15/18 Apixaban [Eliquis -] 2.5 mg PO BID tablet 11/18/18 Docusate Sodium [Colace -] 300 mg PO HS capsule 11/18/18
[2019-02-25 12:09] VITALS: PULSE 53
[2019-02-25 19:40] VITALS: BP 106/59; TEMP 97.9
== END 2019-02-25 12:59 | disposition expired | DRG 871 ==
LOC: JER 13:12 → JERBED 13:56 → J6S 18:37
PROVIDERS: ADMIT Family Medicine; ATTEND Family Medicine
DX: A41.9 Sepsis, unspecified organism (principal); J18.9 Pneumonia, unspecified organism; J98.11 Atelectasis; N17.9 Acute kidney failure, unspecified; I13.0 Hypertensive heart and chronic kidney disease with heart failure and stage 1 through stage 4 chronic kidney disease, or unspecified chronic kidney disease; E87.2 Acidosis; E87.1 Hypo-osmolality and hyponatremia; E03.9 Hypothyroidism, unspecified; I50.9 Heart failure, unspecified; I48.91 Unspecified atrial fibrillation; Z99.81 Dependence on supplemental oxygen; Z66 Do not resuscitate; Z79.01 Long term (current) use of anticoagulants; J44.9 Chronic obstructive pulmonary disease, unspecified; N18.9 Chronic kidney disease, unspecified; K21.9 Gastro-esophageal reflux disease without esophagitis; F03.90 Unspecified dementia, unspecified severity, without behavioral disturbance, psychotic disturbance, mood disturbance, and anxiety; D64.9 Anemia, unspecified; R06.03 Acute respiratory distress
CPT/HCPCS: 36415; 36600; 71045-TC-FY; 80053; 81003; 82272; 82375; 82803; 83050; 83605; 83735; 83880; 84100; 85025; 85610; 85730; 87040; 87086; 93005; 93010; 94640; 99285-25